=== PATIENT | female | born 1940 | race Caucasian/White ===

== ENCOUNTER 2020-06-25 10:47 | Inpatient (IN) ==
--- NOTE | 2020-06-25 11:08 | Emergency Department Note ---
General (ED) Blank Date of Service June 25, 2020 ISteffen DO PGY-3, participated in the care of this patient. Resident Activity Tracking Resident Involvement: Resident Care Provided Care Provided: Adult ED
[2020-06-25] MEDS ORDERED: MoRPHine SULFATE 2 MG/ML CARP IV STA (11:14)
[2020-06-25] MEDS ORDERED: ONDANSETRON INJ 2 MG/ML 2 ML VIAL IV STA (11:14)
--- NOTE | 2020-06-25 11:16 | Emergency Department Note ---
Impression & Plan Closed fracture of left hip ED Provider Note INFORMANT: [Patient] ED PROVIDER(S): Jose Avila MD CHIEF COMPLAINT: Left hip pain PLAN: Disposition: Admitted Condition: [Good] MEDICAL DECISION MAKING: Patient had an accidental fall. She suffered a left hip fracture seen on x-ray imaging. She had a slight leukocytosis on CBC but chemistry panel was unremarkable. ECG did not reveal any acute changes. Head CT negative. She was treated with IV morphine and felt much better with this. The patient will need to be admitted to the hospital. I did discuss this with her and family. They were in agreement. Consultation was made with internal medicine, Dr. Jacobson. Orthopedics was paged. Admitted for further management. Triage Nursing notes reviewed and agree them. [Additional history obtained from] family Vital Signs: reviewed and remarkable for [no significant abnormalities] Differential diagnosis: Fracture, subluxation, dislocation, contusion, closed head injury ligamentous injury, neurovascular, compartment syndrome, rhabdomyolysis, as well as other pathologies. Diagnostics interpreted by me: ECG: Rate 68 Rhythm:Normal sinus [place]:Normal QRS:Normal ST segements:No elevation or depression. Nonspecific ST Other:No PACs or PVCs Cardiac Monitoring: Cardiac monitoring ordered by me: The patient was placed on continuous cardiac monitoring and observed. It revealed a normal sinus rhythm at 65 beats per minute without ectopy or evidence of dysrhythmia. Imaging studies: Chest x-ray. Findings: A chest x-ray was performed and revealed no pneumothorax, effusion, infiltrate, pulmonary edema, free air under the diaphragm, or wide mediastinum. Impression: No acute disease. Left hip x-ray is consistent with left hip fracture. Head CT: A noncontrast CT scan of the head was performed and was negative for tumor, fracture, intracranial hemorrhage, or other acute pathology. Consultation(s): Hospital service Orthopedics HPI: The patient is a 80 year old female who presents to the Emergency Room with complaints of left hip pain. This started this morning from a fall and is persistent. The patient also notes the following associated symptoms, mild PHELAN. The patient has found no relieving factors. Current pain is rated as 7/10. Accidental fall, witnessed. Pt denies LOC, fevers, chills, diaphoresis, visual changes, neck pain, chest pain, breathing difficulties, nausea, vomiting, abdominal pain, back pain, melena, hematochezia, urinary symptoms, numbness, weakness, lymphadenopathy, rash, or other complaints. ROS: See above HPI for pertinent positives & negatives. A total of [10] systems reviewed and were otherwise negative. PAST MEDICAL HISTORY:[See Below] anticoagulated, A. fib PAST SURGICAL HISTORY:[See Below] FAMILY HISTORY:[See Below] SOCIAL HISTORY:[See Below] family HOME MEDICATIONS:[See Below] ALLERGIES:[See Below] VITALS:[See Below] PHYSICAL EXAMINATION: GENERAL: Awake, alert, uncomfortable-appearing, in no distress HENT: Normocephalic, atraumatic. Oropharynx unremarkable. EYES: Normal conjunctiva. Sclera non-icteric. NECK: Inspection normal. Non-tender. Supple. No nuchal rigidity. FROM. No masses. RESPIRATORY: Clear to auscultation. No wheezes. No rales. Normal respiratory effort. CARDIAC: Normal rate. Normal rhythm. No murmurs. No rubs. Extremities warm and well perfused. Pulses equal. No JVD. GI: Soft, non-distended. No tenderness to palpation. No rebound or guarding. No masses. RECTAL: Deferred. MUSCULOSKELETAL: Left leg is shortened and externally rotated. Range of motion of the left hip joint is extremely limited secondary to pain.. Chest examination reveals no tenderness. The back is symmetrical on inspection without obvious abnormality. There is no CVA tenderness to palpation. No joint edema. LOWER EXTREMITIES: Calves are equal size bilaterally and non-tender. No edema. No discoloration. NEURO: Normal sensorium. No sensory or motor deficits noted. SKIN: No rash or jaundice noted. 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 Surgical History H/O hernia repair inguinal History of hysterectomy S/P IVC filter Status post total knee replacement, right Family History Mother , from complications of hip Fx Hip fracture Father COPD (chronic obstructive pulmonary disease) Social History Smoking Status: Never smoker Hx Alcohol Use: No Hx Substance Use: No Preferred Language: Swazi Beliefs That Will Affect Care: None marital status: Single Current Living Situation: Family Current Living Situation Comment: lives with sister & nephew current occupational status: retired How many Children do You have: 0 Other Information That Helps Us Care for You: No 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 Feels Safe at Home: Yes Allergies Allergies Allergy/AdvReac Type Severity Reaction Status Date / Time No Known Allergies Allergy Unknown Unverified 06/25/20 12:51 Home Meds Home Medications Medication Instructions Recorded Confirmed apixaban [Eliquis] 5 mg PO BID 06/25/20 06/25/20 carvedilol 25 mg PO BID 06/25/20 06/25/20 cyclosporine [Restasis] 1 drp OPB BID 06/25/20 06/25/20 loratadine [Claritin] 10 mg PO DAILY PRN 06/25/20 06/25/20 omeprazole 20 mg PO DAILY 06/25/20 06/25/20 sertraline 25 mg PO DAILY 06/25/20 06/25/20 tramadol 50 mg PO BID PRN 06/25/20 06/25/20 Results & Data (ED) Vital Signs Vital Signs - 24 hr 06/25/20 11:02 06/25/20 12:40 Temperature 36.6 C Temperature Source Oral Pulse Rate 72 Pulse Rate [Right Finger] 71 Respiratory Rate 18 14 Respiratory Effort / Characteristics Non-Labored Spontaneous Non-Labored Spontaneous Respiratory Depth Normal Normal Respiratory Pattern Regular Regular Blood Pressure 191/89 H Blood Pressure [Right Arm] 133/75 Blood Pressure Mean 123 Blood Pressure Mean [Right Arm] 94 Blood Pressure Position Lying Blood Pressure Position [Right Arm] Lying Pulse Oximetry 88 L 99 Oxygen Delivery Method Room Air Nasal Cannula Oxygen Flow Rate 2 Sepsis Recent Fever Within 48 Hours No Sepsis New/Unexplained Change in Mental Status N/A Sepsis Action Taken by Nursing No Action Required Laboratory Data Result diagrams: 06/25/20 11:00 06/26/20 07:32 Lab Results 06/25/20 06/25/20 06/25/20 Range/Units 11:00 11:00 11:00 WBC 11.74 H (4.8-10.8) K/uL RBC 3.74 L (4.2-5.4) M/uL Hgb 12.2 (12.0-16.0) g/dL Hct 37.7 (37-47) % MCV 100.8 H (80-100) fL MCH 32.6 (25-34) pg MCHC 32.4 (32-36) g/dL RDW Std Deviation 48.5 H (36.4-46.3) fL RDW Coeff of Hernan 13.2 (11.5-14.5) % Plt Count 258 (130-400) K/uL MPV 11.2 H (7.4-10.4) fL Immature Gran % (Auto) 0.3 % Neut % (Auto) 80.4 % Lymph % (Auto) 11.8 % Wolfe % (Auto) 6.7 % Eos % (Auto) 0.7 % Baso % (Auto) 0.1 % Neut # (Auto) 9.45 H (1.4-6.5) K/uL Lymph # (Auto) 1.38 (1.2-3.4) K/uL Wolfe # (Auto) 0.79 H (0.11-0.59) K/uL Eos # (Auto) 0.08 (0-0.5) K/uL Baso # (Auto) 0.01 (0-0.2) K/uL Immature Gran # (Auto) 0.03 H (0.00-0.02) K/uL PT 11.5 (9.0-12.0) Seconds INR 1.1 (0.9-1.1) APTT 25.7 (21.0-31.0) Seconds PTT Ratio 0.9 Sodium 141 (136-145) mmol/L Potassium 3.8 (3.5-5.1) mmol/L Chloride 109 H (98-107) mmol/L Carbon Dioxide 26 (21-32) mmol/L Anion Gap 6.0 (3-11) BUN 15 (7-18) mg/dl Creatinine 0.63 (0.6-1.2) mg/dl Est Cr Clr Drug Dosing 66.0 ml/min Est GFR ( Amer) 97.5 Est GFR (Non-Af Amer) 84.1 BUN/Creatinine Ratio 23.8 H (10-20) Glucose 109 H (70-99) mg/dl Calcium 9.3 (8.5-10.1) mg/dl Troponin I (0-0.045) ng/ml Urine Color Urine Appearance (Clear) Urine pH (4.5-7.5) Ur Specific [place] (1.000-1.030) Urine Protein (Negative) Urine Glucose (UA) (Negative) Urine Ketones (Negative) Urine Blood (Negative) Urine Nitrite (Negative) Urine Bilirubin (Negative) Urine Urobilinogen (Negative) Ur Leukocyte Esterase (Negative) Urine WBC (Auto) (0-5) /hpf Urine RBC (Auto) (0-4) /hpf U Hyaline Cast (Auto) (0-5) /lpf U Epithel Cells (Auto) (0-5) /lpf Urine Bacteria (Auto) (Negative) Ur Renal Epithelial Cell (0-5) /lpf Blood Type Antibody Screen 06/25/20 06/25/20 06/25/20 Range/Units 11:00 11:05 11:25 WBC (4.8-10.8) K/uL RBC (4.2-5.4) M/uL Hgb (12.0-16.0) g/dL Hct (37-47) % MCV (80-100) fL MCH (25-34) pg MCHC (32-36) g/dL RDW Std Deviation (36.4-46.3) fL RDW Coeff of Hernan (11.5-14.5) % Plt Count (130-400) K/uL MPV (7.4-10.4) fL Immature Gran % (Auto) % Neut % (Auto) % Lymph % (Auto) % Wolfe % (Auto) % Eos % (Auto) % Baso % (Auto) % Neut # (Auto) (1.4-6.5) K/uL Lymph # (Auto) (1.2-3.4) K/uL Wolfe # (Auto) (0.11-0.59) K/uL Eos # (Auto) (0-0.5) K/uL Baso # (Auto) (0-0.2) K/uL Immature Gran # (Auto) (0.00-0.02) K/uL PT (9.0-12.0) Seconds INR (0.9-1.1) APTT (21.0-31.0) Seconds PTT Ratio Sodium (136-145) mmol/L Potassium (3.5-5.1) mmol/L Chloride (98-107) mmol/L Carbon Dioxide (21-32) mmol/L Anion Gap (3-11) BUN (7-18) mg/dl Creatinine (0.6-1.2) mg/dl Est Cr Clr Drug Dosing ml/min Est GFR ( Amer) Est GFR (Non-Af Amer) BUN/Creatinine Ratio (10-20) Glucose (70-99) mg/dl Calcium (8.5-10.1) mg/dl Troponin I < 0.015 (0-0.045) ng/ml Urine Color Yellow Urine Appearance Clear (Clear) Urine pH 6.5 (4.5-7.5) Ur Specific [place] 1.016 (1.000-1.030) Urine Protein Negative (Negative) Urine Glucose (UA) Negative (Negative) Urine Ketones Negative (Negative) Urine Blood Negative (Negative) Urine Nitrite Negative (Negative) Urine Bilirubin Negative (Negative) Urine Urobilinogen Negative (Negative) Ur Leukocyte Esterase 1+ H (Negative) Urine WBC (Auto) 1-5 (0-5) /hpf Urine RBC (Auto) 0-4 (0-4) /hpf U Hyaline Cast (Auto) 1-5 (0-5) /lpf U Epithel Cells (Auto) >30 H (0-5) /lpf Urine Bacteria (Auto) Negative (Negative) Ur Renal Epithelial Cell 0-5 (0-5) /lpf Blood Type A Positive Antibody Screen NEGATIVE Administered Medications Acetaminophen (Acetaminophen 325 Mg Tab) 650 mg PO Q6H PRN PRN Reason: MILD Pain (Scale 1,2,3) Stop: 07/25/20 15:57 Last Admin: 06/25/20 22:07 Dose: 650 mg Documented by: [id number] Carvedilol (Carvedilol 25 Mg Tab) 25 mg PO BID HOWARD Stop: 07/25/20 20:59 Last Admin: 06/25/20 20:32 Dose: 25 mg Documented by: [id number] Hydromorphone HCl (Hydromorphone Inj 0.5 Mg/0.5 Ml Syr) 0.25 mg IV Q3H PRN PRN Reason: Moderate/Severe Pain Stop: 07/09/20 15:57 Last Admin: 06/25/20 23:58 Dose: 0.25 mg Documented by: [id number] Admin: 06/25/20 21:05 Dose: 0.25 mg Documented by: [id number] Admin: 06/25/20 16:40 Dose: 0.25 mg Documented by: [id number] Lactated Ringer's (Lr) 1,000 mls @ 80 mls/hr IV .[id number] HOWARD Stop: 07/26/20 05:59 Last Admin: 06/26/20 06:07 Dose: 80 mls/hr Documented by: [id number] Miscellaneous (*Cyclosporine [Restasis]*Order Awaiting Action) 1 ea N/A QS [facility] Stop: 07/26/20 00:00 Last Admin: 06/26/20 00:19 Dose: Not Given Documented by: [id number] Senna/Docusate Sodium (Docusate Sodium/Senna 50/8.6mg Tab) 2 tab PO HS [facility] Stop: 07/25/20 20:59 Last Admin: 06/25/20 20:32 Dose: 2 tab Documented by: [id number] Discontinued Medications Hydromorphone HCl (Hydromorphone Inj 0.5 Mg/0.5 Ml Syr) 0.25 mg IV NOW STA Stop: 06/26/20 02:26 Last Admin: 06/26/20 02:53 Dose: 0.25 mg Documented by: [id number] Lactated Ringer's (Lr) 1,000 mls @ 75 mls/hr IV .[id number] HOWARD Stop: 06/26/20 05:34 Last Infusion: 06/26/20 06:20 Dose: 0 mls/hr Documented by: [id number] Admin: 06/25/20 16:48 Dose: 75 mls/hr Documented by: [id number] Morphine Sulfate (Morphine Sulfate 2 Mg/Ml Carp) 2 mg IV NOW STA Stop: 06/25/20 11:15 Last Admin: 06/25/20 11:23 Dose: 2 mg Documented by: [id number] Morphine Sulfate (Morphine Sulfate 4 Mg/Ml 1 Ml Carp\Vial) 4 mg IV Q15M PRN PRN Reason: Pain Stop: 07/09/20 12:34 Last Admin: 06/25/20 14:54 Dose: 4 mg Documented by: [id number] Admin: 06/25/20 12:41 Dose: 4 mg Documented by: [id number] Ondansetron HCl (Ondansetron Inj 2 Mg/Ml 2 Ml Vial) 4 mg IV NOW STA Stop: 06/25/20 11:15 Last Admin: 06/25/20 11:23 Dose: 4 mg Documented by: [id number] Discharge Plan Visit Data Chief Complaint: Fall ED Provider: Jose Avila ED Midlevel Provider: Steffen Lynch Discharge Problem: Closed fracture of left hip Patient Disposition: Admitted As Inpatient Discharge Instructions Interventions: ED Discharge Assessment Last Done: 06/25/20 16:32
[2020-06-25 11:27] LABS: Basophils # (auto) 0.01 K/uL (0-0.2); Basophils % (auto) 0.1 %; Eosinophils # (auto) 0.08 K/uL (0-0.5); Eosinophils % (auto) 0.7 %; Hematocrit (blood only) 37.7 % (37-47); Hemoglobin 12.2 g/dL (12.0-16.0); Immature Granulocytes # (auto) 0.03 K/uL (0.00-0.02); Immature Granulocytes % (auto) 0.3 %; Lymphocytes # (auto) 1.38 K/uL (1.2-3.4); Lymphocytes % (auto) 11.8 %; Mean Corpuscular Hemoglobin 32.6 pg (25-34); Mean Corpuscular Hgb Conc 32.4 g/dL (32-36); Mean Corpuscular Volume 100.8 fL (80-100); Mean Platelet Volume 11.2 fL (7.4-10.4); Monocytes # (auto) 0.79 K/uL (0.11-0.59); Monocytes % (auto) 6.7 %; Neutrophils # (auto) 9.45 K/uL (1.4-6.5); Neutrophils % (auto) 80.4 %; Platelet Count 258 K/uL (130-400); RDW Coefficient of Variation 13.2 % (11.5-14.5); RDW Standard Deviation 48.5 fL (36.4-46.3); Red Blood Count 3.74 M/uL (4.2-5.4); White Blood Count 11.74 K/uL (4.8-10.8)
[2020-06-25 11:36] LABS: INR 1.1 (0.9-1.1); Partial Thromboplastin Ratio 0.9; Partial Thromboplastin Time 25.7 Seconds (21.0-31.0); Prothrombin Time 11.5 Seconds (9.0-12.0)
[2020-06-25 11:42] LABS: BUN Creatinine Ratio 23.8 (10-20); Calcium 9.3 mg/dl (8.5-10.1); Est GFR (African American) 97.5; Est GFR (Non-African American) 84.1; Potassium 3.8 mmol/L (3.5-5.1)
[2020-06-25 12:22] LABS: Appearance Urine Clear (Clear); Bacteria Urine Automated Negative (Negative); Bilirubin Urine Negative (Negative); Blood Urine Negative (Negative); Color Urine Yellow; Epithelial Cell Urine Auto >30 /lpf (0-5); Glucose Urine UA Negative (Negative); Ketones Urine Negative (Negative); Leukocyte Esterase Urine 1+ (Negative); Nitrite Urine Negative (Negative); Protein Urine Negative (Negative); RBC Urine Automated 0-4 /hpf (0-4); Specific Gravity Urine 1.016 (1.000-1.030); Urobilinogen Urine Negative (Negative); pH Urine 6.5 (4.5-7.5)
--- NOTE | 2020-06-25 12:30 | XRay Report ---
XR hip LT min 2V HISTORY: 80 years-old Female Fall, pain, shortened externally rotated acute left hip pain status pos t fall COMPARISON: CT abdomen and pelvis 11/04/2008 TECHNIQUE: 2 views of the left hip FINDINGS: There is an acute intertrochanteric fracture of the left hip. The lesser trochanteric fracture compon ent is displaced several millimeters medially. Mild apex superior lateral angulation with several mil limeters of fracture separation. Moderate left hip osteoarthritis. IMPRESSION: Acute mildly angulated and displaced intratrochanteric fracture of the left femur. ACT 112: Negative or not required by law. The above report was generated using voice recognition software. It may contain grammatical, syntax o r spelling errors. Electronically signed by: Gareth Dobbs M.D. 06/25/2020 12:29 PM
--- NOTE | 2020-06-25 12:31 | XRay Report ---
XR chest 1V portable CLINICAL HISTORY: syncope mental status change COMPARISON STUDY: No previous studies for comparison. FINDINGS: The bones soft tissues and hemidiaphragms are normal. The cardiomediastinal silhouette is n ormal. The lungs are clear. The pulmonary vasculature is normal. IMPRESSION: Negative chest. ACT 112: Negative or not required by law. The above report was generated using voice recognition software. It may contain grammatical, syntax or spelling errors. Electronically signed by: Guanakito Garcia M.D. 06/25/2020 12:29 PM
[2020-06-25] MEDS: MoRPHine SULFATE 4 MG/ML 1 ML CARP\\VIAL IV PRN ×2 (12:41→14:54)
--- NOTE | 2020-06-25 13:14 | History & Physical Report ---
Date of Service June 25, 2020 Assessment & Plan (1) Hip fracture, left: 2nd to accidental fall in her bedroom at home. Patient had no prodromal chest pain, dyspnea, palpitations, or dizziness/lightheadedness prior to the fall. She states she had loss of consciousness for 2-3 seconds at most. Denies any recent falls, syncope, or near-syncope otherwise. Hold eliquis in preparation for surgical repair. Consult [facility] [place]. IV fluids. Place on telemetry, r/o any dysrhythmia which could have precipitated the fall. Consider echo given her nonspecific ST changes on EKG. Check vitamin D level in am. (2) Fall: History suggests a purely accidental event with no prodromal symptoms. I am unclear if the patient had true loss of consciousness or not. She states it was for 2-3 seconds at most, if any actually occurred. No head trauma by her report. Check B12 level. Check vitamin D level. Place on telemetry. Check echo. Place on bedrest. Strongly consider CT head. (3) Syncope: Possible, in and around the time of the fall. Very brief as noted above. Consider CT head. Consider echo. Check B12 level. (4) History of DVT (deep vein thrombosis): Provoked, 2007, in setting of right TKR. Apparently she had an associated stroke during the VTE event as well. Records for that admission are not available as TKR was performed at [facility]. She was on coumadin for many years, then switched to eliquis in the last few years. I am uncertain why she has remained on anticoagulation for 12 years. She denies a.fib. Son doesn't recall any h/o a.fib either. Son reports they have kept her on anticoagulation this long "because she had the stroke." Will hold eliquis in preparation for surgery today. Following her surgery would resume her anticoagulation as previous. (5) History of stroke: 2007 - see above. (6) Essential (primary) hypertension: Continue coreg BID. (7) GERD (gastroesophageal reflux disease): Continue PPI. (8) DVT prophylaxis: Hold eliquis for now. Resume post-op. Son extensively updated. From a cardiovascular standpoint patient is a low-moderate risk for her upcoming left hip ORIF. Greatest risk is that of VTE given her prior DVT event following total knee replacement. Resume eliquis post-op when cleared with orthopedics. She has no limiting cardiopulmonary symptoms at home. She can climb a flight of stairs without difficulty. History of Present Illness Chief Complaint: left hip pain Primary Care Provider: Diamond Hewitt DO 80yo female with history of stroke in 2007 with resulting numbness in the right leg presents after having had a fall at home in her bedroom this am. Was attempting to walk to the bathroom - may have tripped on items on the floor - and fell to the ground. She typically uses a cane but wasn't using it this am when the fall occurred. She did not have any prodromal dizziness or lightheadedness but thinks she passed out for a second or two. Son with whom she lives found her on floor. She had severe pain in the left groin and left thigh. 911 was called and she was brought to [facility]. x-rays show acute left hip fracture. She has had falls in the past but none recently. She has had syncope in the past but also not recently. Denies dizziness/lightheadedness on regular basis. Last dose of eliquis - evening of 06/24/2020. Allergies Allergy/AdvReac Type Severity Reaction Status Date / Time No Known Allergies Allergy Unknown Unverified 06/25/20 12:51 Home Medications Home Medications Medication Instructions Recorded Confirmed Type apixaban [Eliquis] 5 mg PO BID 06/25/20 06/25/20 History carvedilol 25 mg PO BID 06/25/20 06/25/20 History cyclosporine [Restasis] 1 drp OPB BID 06/25/20 06/25/20 History loratadine [Claritin] 10 mg PO DAILY PRN 06/25/20 06/25/20 History omeprazole 20 mg PO DAILY 06/25/20 06/25/20 History sertraline 25 mg PO DAILY 06/25/20 06/25/20 History tramadol 50 mg PO BID PRN 06/25/20 06/25/20 History Past Med/Surg History Medical History Essential (primary) hypertension GERD (gastroesophageal reflux disease) 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; 2007 History of stroke 2007 - residual numbness in right arm/right leg Surgical History H/O hernia repair inguinal History of hysterectomy S/P IVC filter Status post total knee replacement, right Family History (Updated 06/25/20 @ 21:49 by Randolph Jacobson) Mother , from complications of hip Fx Hip fracture Father COPD (chronic obstructive pulmonary disease) Social History Smoking Status: Never smoker Hx Alcohol Use: No Hx Substance Use: No Preferred Language: Wallisian Beliefs That Will Affect Care: None marital status: Single Current Living Situation: Family Current Living Situation Comment: lives with sister & nephew current occupational status: retired How many Children do You have: 0 Other Information That Helps Us Care for You: No other: worked at [employer] - [employer] Feels Safe at Home: Yes Review of Systems Constitutional: no fever, no chills, no anorexia and no weight loss Eyes: no worsening vision Ear, Nose, Mouth, Throat: + dysphagia (on occasion) no loss of taste or smell Respiratory: + cough (occasional ); no dyspnea on exertion Cardiovascular: no chest pain and no edema Gastrointestinal: + diarrhea/loose stools (chronic ); no abdominal pain and no vomiting Genitourinary: no dysuria Musculoskeletal: as per Subjective / HPI and + joint pain Integumentary: no rash Neurologic: + loss of sensation (chronic - RLE, RUE) Psychiatric: no depression Endocrine: no diabetes Hematologic / Lymphatic: no easy bruising Physical Exam Constitutional: well developed, well nourished and + acute distress (any movement in bed causes left hip pain); no altered mental status Eyes: PERRL (1mm b/l) ENMT: external ear and nose normal, oropharynx normal Neck: trachea midline, no thyromegaly Respiratory: normal respiratory effort, lungs clear to auscultation Cardiovascular: Rate/Rhythm: regular rate and regular rhythm Heart Sounds: normal S1, normal S2 and + murmur (1/6 ZAINAB LSB ) Vessels: posterior tibial pulses present and dorsalis pedis pulses present; no JVD Extremities: no edema Gastrointestinal (Abdomen): normal bowel sounds, soft, nontender, no hepatosplenomegaly Musculoskeletal: left leg - shortened, flexed, and externally rotated Skin: no rashes, warm and dry Neurologic: deep tendon reflexes 2+ bilaterally and moves all extremities (hip flexion L not assessed ) Psychiatric: A+Ox3, euthymic affect Lymphatic: no cervical lymphadenopathy Results & Data Results & Data ([facility]) Vital Signs (Past 12 Hours) Vital Signs Temp Pulse Pulse Resp BP BP Pulse Ox 06/25/20 12:40 71 14 133/75 99 06/25/20 11:02 36.6 C 72 18 191/89 H 88 L Laboratory Results Laboratory Results - last 24 hr 06/25/20 06/25/20 06/25/20 11:00 11:00 11:00 WBC 11.74 H RBC 3.74 L Hgb 12.2 Hct 37.7 MCV 100.8 H MCH 32.6 MCHC 32.4 RDW Std Deviation 48.5 H RDW Coeff of Hernan 13.2 Plt Count 258 MPV 11.2 H Immature Gran % (Auto) 0.3 Neut % (Auto) 80.4 Lymph % (Auto) 11.8 [place] % (Auto) 6.7 Eos % (Auto) 0.7 Baso % (Auto) 0.1 Neut # (Auto) 9.45 H Lymph # (Auto) 1.38 [place] # (Auto) 0.79 H Eos # (Auto) 0.08 Baso # (Auto) 0.01 Immature Gran # (Auto) 0.03 H PT 11.5 INR 1.1 APTT 25.7 PTT Ratio 0.9 Sodium 141 Potassium 3.8 Chloride 109 H Carbon Dioxide 26 Anion Gap 6.0 BUN 15 Creatinine 0.63 Est Cr Clr Drug Dosing 66.0 Est GFR ( Amer) 97.5 Est GFR (Non-Af Amer) 84.1 BUN/Creatinine Ratio 23.8 H Glucose 109 H Calcium 9.3 Troponin I Urine Color Urine Appearance Urine pH Ur Specific [place] Urine Protein Urine Glucose (UA) Urine Ketones Urine Blood Urine Nitrite Urine Bilirubin Urine Urobilinogen Ur Leukocyte Esterase Urine WBC (Auto) Urine RBC (Auto) U Hyaline Cast (Auto) U Epithel Cells (Auto) Urine Bacteria (Auto) Ur Renal Epithelial Cell Blood Type Antibody Screen 06/25/20 06/25/20 06/25/20 11:00 11:05 11:25 WBC RBC Hgb Hct MCV MCH MCHC RDW Std Deviation RDW Coeff of Hernan Plt Count MPV Immature Gran % (Auto) Neut % (Auto) Lymph % (Auto) [place] % (Auto) Eos % (Auto) Baso % (Auto) Neut # (Auto) Lymph # (Auto) [place] # (Auto) Eos # (Auto) Baso # (Auto) Immature Gran # (Auto) PT INR APTT PTT Ratio Sodium Potassium Chloride Carbon Dioxide Anion Gap BUN Creatinine Est Cr Clr Drug Dosing Est GFR ( Amer) Est GFR (Non-Af Amer) BUN/Creatinine Ratio Glucose Calcium Troponin I < 0.015 Urine Color Yellow Urine Appearance Clear Urine pH 6.5 Ur Specific [place] 1.016 Urine Protein Negative Urine Glucose (UA) Negative Urine Ketones Negative Urine Blood Negative Urine Nitrite Negative Urine Bilirubin Negative Urine Urobilinogen Negative Ur Leukocyte Esterase 1+ H Urine WBC (Auto) 1-5 Urine RBC (Auto) 0-4 U Hyaline Cast (Auto) 1-5 U Epithel Cells (Auto) >30 H Urine Bacteria (Auto) Negative Ur Renal Epithelial Cell 0-5 Blood Type A Positive Antibody Screen NEGATIVE Diagnostic Findings 1. cxr - no infiltrates. 2. left hip x-rays - IMPRESSION: Acute mildly angulated and displaced intratrochanteric fracture of the left femur. 3. EKG - my reading - NSR, NS ST changes III, AVF; NS ST changes V2/V2 only no prior EKG for comparison purposes Code Status & VTE Plan Code Status DNR/DNI VTE Prophylaxis Plan VTE Prophylaxis will be ordered: Yes PG Care Time/CCT Total # of Minutes Spent Total Time Spent with Patient: Total time spent is greater than 50% in coordination of care (as documented) at patient's floor/unit and/or counseling patient: Coding Level of Care Code 09320 Initial Inpt Care Lvl 3 Diagnoses Hip fracture, left S72.002A Encounter type: initial encounter Fracture type: closed Fall W19.XXXA Encounter type: initial encounter Syncope R55 Syncope type: unspecified History of DVT (deep vein thrombosis) Z86.718 History of stroke Z86.73 Essential (primary) hypertension I10 GERD (gastroesophageal reflux disease) K21.9 Esophagitis presence: esophagitis presence not specified DVT prophylaxis Z29.9 (1) GERD (gastroesophageal reflux disease) Esophagitis presence: esophagitis presence not specified Qualified Code(s): K21.9 - Gastro-esophageal reflux disease without esophagitis (2) Hip fracture, left Encounter type: initial encounter Fracture type: closed Qualified Code(s): S72.002A - Fracture of unspecified part of neck of left femur, initial encounter for closed fracture (3) Fall Encounter type: initial encounter Qualified Code(s): W19.XXXA - Unspecified fall, initial encounter (4) Syncope Syncope type: unspecified Qualified Code(s): R55 - Syncope and collapse
[2020-06-25 13:48] LABS: Renal Epithelial Cells Urine 0-5 /lpf (0-5)
--- NOTE | 2020-06-25 15:02 | Orthopedic Consultation ---
Date of Consultation June 25, 2020 Assessment & Plan (1) Hip fracture, left: Comminuted, complex peritrochanteric fx with subtroch and basicervical involvement. Plan for cephalomedullary nail as soon as tomorrow if medically optimized. Plan for at least 6 weeks of VTE chemoprophylaxis postop - defer to medicine team for agent/dose given history of VTE and chronic apixaban. Keep NPO overnight. Discussed need for surgical stabilization with patient and her primary contact = Wade, her nephew. Discussed risks and benefits of open or closed reduction and internal fixation of left peritrochanteric fracture. The risks that were discussed included but were not limited to bleeding requiring transfusion, neurovascular injury, wound healing complications, infection, possible need for revision surgery, nonunion, malunion, symptomatic hardware, pain syndromes, blood clots, and complications related to anesthesia. They both asked appropriate questions, demonstrated a good understanding, and elected to proceed with surgery. Present on Admission?: Yes History of Present Illness Reason for Consultation: Left hip fracture History of Present Illness 80 yo F with hx of stroke, VTE, IVC Filter, R TKA brought by EMS after fall at home. She reports that she must have tripped on carpet. Had immediate pain and inability to bear weight. Also states that she hit her head but denies LOC. Reports pain in groin and hip, radiating to knee. No prior hx of hip pain. Denies skin trauma and neurologic symptoms in the LLE. Uses cane for independent ambulation at home. Lives with sister and nephew. Allergies Allergy/AdvReac Type Severity Reaction Status Date / Time No Known Allergies Allergy Unknown Unverified 06/25/20 12:51 Home Medications Home Medications Medication Instructions Recorded Confirmed Type apixaban [Eliquis] 5 mg PO BID 06/25/20 06/25/20 History carvedilol 25 mg PO BID 06/25/20 06/25/20 History cyclosporine [Restasis] 1 drp OPB BID 06/25/20 06/25/20 History loratadine [Claritin] 10 mg PO DAILY PRN 06/25/20 06/25/20 History omeprazole 20 mg PO DAILY 06/25/20 06/25/20 History sertraline 25 mg PO DAILY 06/25/20 06/25/20 History tramadol 50 mg PO BID PRN 06/25/20 06/25/20 History Patient History Medical History Essential (primary) hypertension GERD (gastroesophageal reflux disease) 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; 2007 History of stroke 2008 - residual numbness in right arm/right leg Surgical History H/O hernia repair inguinal History of hysterectomy S/P IVC filter Status post total knee replacement, right Family History Mother , from complications of hip Fx Hip fracture Father COPD (chronic obstructive pulmonary disease) Social History Smoking Status: Never smoker Hx Alcohol Use: No Hx Substance Use: No Preferred Language: Belgian Beliefs That Will Affect Care: None marital status: Single Current Living Situation: Family Current Living Situation Comment: lives with sister & nephew current occupational status: retired How many Children do You have: 0 Other Information That Helps Us Care for You: No 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 LLE held in shortened and externally rotated position. +EHL/PF/DF. 2+ dp/pt pulses. Sensation grossly intact to LT. Nontender along femur, knee, tibia, ankle. RLE: Normal posture. +PF/DF/EHL/KF/KE. DNVI. BUE: FAROM without pain Scalp without lacerations Constitutional: well developed and well nourished; no acute distress and not intoxicated appearing ENMT: external ear and nose normal, oropharynx normal Respiratory: normal respiratory effort; no respiratory distress Cardiovascular: Extremities: normal capillary refill; no edema Skin: no rashes, warm and dry Psychiatric: A+Ox3, euthymic affect Results & Data ([facility]) Vital Signs (Past 12 Hours) Vital Signs Temp Pulse Pulse Resp BP BP Pulse Ox 06/25/20 14:04 73 18 149/77 H 98 06/25/20 12:40 71 14 133/75 99 06/25/20 11:02 36.6 C 72 18 191/89 H 88 L Laboratory Tests 06/25/20 06/25/20 06/25/20 11:00 11:00 11:05 WBC 11.74 H Hgb 12.2 Hct 37.7 Plt Count 258 Neut # (Auto) 9.45 H Troponin I < 0.015 Ur Leukocyte Esterase 1+ H Urine WBC (Auto) 1-5 Urine Bacteria (Auto) Negative Blood Type 06/25/20 11:25 WBC Hgb Hct Plt Count Neut # (Auto) Troponin I Ur Leukocyte Esterase Urine WBC (Auto) Urine Bacteria (Auto) Blood Type A Positive Diagnostic Findings Radiographs of the left hip are of poor quality but show comminuted peritrochanteric fracture with basicervical and subtrochanteric involvement. AP Pelvis views better define the fracture pattern. Best treated with CMN. Osteoporotic appearance. Extensive trochanteric comminution. PG Care Time/CCT Total # of Minutes Spent Total Time Spent with Patient: Total time spent is greater than 50% in coordination of care (as documented) at patient's floor/unit and/or counseling patient: Coding Level of Care Code 09227 Initial Inpt Care Lvl 3 Diagnoses Hip fracture, left S72.002A Encounter type: initial encounter Fracture type: closed (1) Hip fracture, left Encounter type: initial encounter Fracture type: closed Qualified Code(s): S72.002A - Fracture of unspecified part of neck of left femur, initial encounter for closed fracture
[2020-06-25] MEDS ORDERED: ONDANSETRON INJ 2 MG/ML 2 ML VIAL IV PRN (15:58)
[2020-06-25] MEDS ORDERED: MAGNESIUM HYDROXIDE SUSP 30 ML UDC PO PRN (15:58)
[2020-06-25] MEDS ORDERED: LORATADINE 10 MG TAB PO PRN (15:58)
[2020-06-25] MEDS ORDERED: bisacodyL 10 MG SUPP PR PRN (15:58)
[2020-06-25] MEDS ORDERED: NALOXONE HCL 0.4 MG/1 ML VIAL/CARP IV PRN (15:58)
[2020-06-25] MEDS ORDERED: ACETAMINOPHEN 325 MG TAB PO PRN (15:58)
[2020-06-25] MEDS ORDERED: LACTATED RINGER'S 1,000 ML IV SCH (16:15)
[2020-06-25] MEDS: HYDROmorphone INJ 0.5 MG/0.5 ML SYR IV PRN ×3 (16:40→23:58)
--- NOTE | 2020-06-25 16:43 | XRay Report ---
PELVIS ONE VIEW HISTORY: Left hip fracture COMPARISON: Left hip 06/25/2020. FINDINGS: Redemonstration of the comminuted and angulated left femoral intertrochanteric fracture. No dislocation. The visualized pelvic bones and right hip appear intact. No radiopaque foreign bodies. IMPRESSION: No change in the comminuted and angulated left femoral intertrochanteric hip fracture. ACT 112: Negative or not required by law. Electronically signed by: Erik Thorpe M.D. 06/25/2020 4:41 PM
[2020-06-25] MEDS: DOCUSATE SODIUM/SENNA 50/8.6MG TAB PO SCH (20:32)
[2020-06-25] MEDS: carvediloL 25 MG TAB PO SCH (20:32)
[2020-06-26] MEDS ORDERED: HYDROmorphone INJ 0.5 MG/0.5 ML SYR IV STA (02:25)
[2020-06-26] MEDS ORDERED: CEFAZOLIN 2000MG 2,000 MG/15 ML SYR IV SCH (06:00)
[2020-06-26] MEDS: LACTATED RINGER'S 1,000 ML IV SCH ×2 (06:07→20:55)
--- NOTE | 2020-06-26 06:30 | Electrocardiogram Report ---
Test Reason : Blood Pressure : / mmHG Vent. Rate : 068 BPM Atrial Rate : 068 BPM P-R Int : 172 ms QRS Dur : 072 ms QT Int : 420 ms P-R-T Axes : 040 -03 030 degrees QTc Int : 446 ms Poor data quality, interpretation may be adversely affected Normal sinus rhythm Nonspecific ST and T wave abnormality Abnormal ECG No previous ECGs available Confirmed by Niels Long ([id number]) on 06/26/2020 6:29:43 AM Referred By: REFERRED SELF Confirmed By:Niels Long
--- NOTE | 2020-06-26 07:14 | CT Scan Report ---
CT SCAN OF THE BRAIN WITHOUT IV CONTRAST CLINICAL HISTORY: Fall. Syncope. COMPARISON STUDY: No priors. TECHNIQUE: Unenhanced axial CT scan of the brain is performed from the vertex to the skull base. A do se lowering technique was utilized adhering to the principles of ALARA. CT DOSE: 614.27 mGy.cm FINDINGS: Brain parenchyma: Left MCA territory encephalomalacia is consistent with a remote infarct. There are age-related involutional changes noting mild subcortical and periventricular microangiopathic change . There is no hemorrhage, mass effect, or evidence of acute territorial ischemia by CT criteria. Cárdenas -white matter differentiation is preserved. No extra-axial fluid collection is seen. Ventricles, sulci, cisterns: Prominent secondary to involutional change. Intracranial vasculature: There is atherosclerotic calcification of the cavernous carotid and vertebr al arteries. Calvarium: The skeletal structures are osteopenic. No depressed calvarial fracture is identified. Sinuses and mastoids: The visualized paranasal sinuses are clear. The mastoid air cells are well pneu matized. Orbits: The bony orbits are grossly intact. There is evidence of bilateral ocular lens surgery. IMPRESSION: There is no hemorrhage, mass effect, or evidence of acute territorial ischemia by CT nestor guzman. ACT 112: Negative or not required by law. Electronically signed by: Ezekiel Markham M.D. 06/26/2020 7:12 AM
[2020-06-26 08:18] LABS: BUN Creatinine Ratio 25.2 (10-20); Calcium 8.4 mg/dl (8.5-10.1); Creatinine Clr Calc Pharmacy 89.5 ml/min; Est GFR (African American) 103.9; Est GFR (Non-African American) 89.6; Potassium 3.8 mmol/L (3.5-5.1)
[2020-06-26 08:33] LABS: Thyroid Stimulating Hormone 0.529 uIu/ml (0.300-4.500)
[2020-06-26] MEDS: carvediloL 25 MG TAB PO SCH ×2 (09:03→21:27)
[2020-06-26] MEDS: PANTOprazole 40 MG TAB PO SCH (09:04)
[2020-06-26] MEDS: SERTRALINE HCL 50 MG TABLET PO SCH (09:04)
[2020-06-26] MEDS ORDERED: PROPOFOL IV EMULSION 10 MG/ML 20 ML VIAL IV ONE (16:07)
[2020-06-26] MEDS ORDERED: DEXAMETHASONE SOD INJ 4 MG/ML VIAL ONE ×2 (16:07→18:19)
[2020-06-26] MEDS ORDERED: GLYCOPYRROLATE 0.2 MG/ML VIAL ONE ×2 (16:07→18:19)
[2020-06-26] MEDS ORDERED: NEOSTIGMINE METHYLSULFATE 5 MG/5 ML SYR ONE ×2 (16:07→18:19)
[2020-06-26] MEDS ORDERED: LIDOCAINE HCL 2% 2 ML VIAL/AMP(20MG/ML) INFIL ONE ×2 (16:07→18:19)
[2020-06-26] MEDS ORDERED: ROCURONIUM BROMIDE 10 MG/ML 5 ML VIAL IV ONE ×2 (16:07→18:19)
[2020-06-26] MEDS ORDERED: ONDANSETRON INJ 2 MG/ML 2 ML VIAL ONE ×2 (16:07→18:19)
[2020-06-26] MEDS ORDERED: MIDAZOLAM HCL 1 MG/ML 2ML VIAL ONE (16:08)
[2020-06-26] MEDS ORDERED: fentaNYL citrate 100 MCG/2 ML VIAL ONE (16:08)
--- NOTE | 2020-06-26 16:59 | XCELERA ---
[id number]
--- NOTE | 2020-06-26 17:00 | Anesthesiology Consultation ---
Date of Service June 26, 2020 Assessment & Plan (1) Encounter for pre-operative examination: Chart Review Chart Review: Acceptable Risk for Surgery and Patient NOT seen in Pre Admission Testing Consults Requested none History Surgery Operation Date: 06/26/20 07:30 Proposed Procedures p Left Hip Trochanteric Nail - Vladimir Sanabria Height/Weight Height: 5 ft 5 in Weight: 81.6 kg Allergies Allergy/AdvReac Type Severity Reaction Status Date / Time No Known Allergies Allergy Unknown Unverified 06/25/20 12:51 Medications Home Medications Medication Instructions Recorded Confirmed Last Taken apixaban [Eliquis] 5 mg PO BID 06/25/20 06/25/20 06/24/20 carvedilol 25 mg PO BID 06/25/20 06/25/20 06/24/20 cyclosporine [Restasis] 1 drp OPB BID 06/25/20 06/25/20 06/24/20 loratadine [Claritin] 10 mg PO DAILY PRN 06/25/20 06/25/20 06/24/20 omeprazole 20 mg PO DAILY 06/25/20 06/25/20 06/24/20 sertraline 25 mg PO DAILY 06/25/20 06/25/20 06/24/20 tramadol 50 mg PO BID PRN 06/25/20 06/25/20 06/24/20 Active Medications Generic Name Dose Route Start Last Admin Trade Name Freq PRN Reason Stop Dose Admin Acetaminophen 650 mg 06/25/20 15:58 06/25/20 22:07 Acetaminophen 325 Mg Tab PO 07/25/20 15:57 650 mg Q6H PRN Administration MILD Pain (Scale 1,2,3) Carvedilol 25 mg 06/25/20 21:00 06/26/20 09:03 Carvedilol 25 Mg Tab PO 07/25/20 20:59 25 mg BID HOWARD Administration Hydromorphone HCl 0.25 mg 06/25/20 15:58 06/25/20 23:58 Hydromorphone Inj 0.5 Mg/0.5 Ml Syr IV 07/09/20 15:57 0.25 mg Q3H PRN Administration Moderate/Severe Pain Lactated Ringer's 1,000 mls @ 80 mls/hr 06/26/20 06:00 06/26/20 16:21 Lr IV 07/26/20 05:59 Infused .[id number] HOWARD Infusion Miscellaneous 1 ea 06/26/20 00:00 06/26/20 16:27 *Cyclosporine [Restasis]*Order Awaiting Action N/A 07/26/20 00:00 Not Given QS HOWARD Pantoprazole Sodium 40 mg 06/26/20 09:00 06/26/20 09:04 Pantoprazole 40 Mg Tab PO 07/26/20 08:59 Not Given QAM HOWARD Senna/Docusate Sodium 2 tab 06/25/20 21:00 06/25/20 20:32 Docusate Sodium/Senna 50/8.6mg Tab PO 07/25/20 20:59 2 tab HS HOWARD Administration Sertraline HCl 25 mg 06/26/20 09:00 06/26/20 09:04 Sertraline Hcl 50 Mg Tablet PO 07/26/20 08:59 Not Given DAILY HOWARD NPO Date Last Intake of Fluids: 06/26/20 Time Last Intake of Fluids: 00:00 Date Last Intake of Solids: 06/25/20 Time Last Intake of Solids: 17:00 Past Medical History Medical History Essential (primary) hypertension GERD (gastroesophageal reflux disease) 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; 2007 History of stroke 2007 - residual numbness in right arm/right leg Past Family History Family History Mother , from complications of hip Fx Hip fracture Father COPD (chronic obstructive pulmonary disease) Past Surgical History Surgical History H/O hernia repair inguinal History of hysterectomy S/P IVC filter Status post total knee replacement, right Social History Smoking Status: Never smoker Hx Alcohol Use: No Hx Substance Use: No Physical Exam Vital Signs Last Vital Signs Temp 37.3 C 06/26/20 16:36 Pulse 85 06/26/20 16:36 Resp 18 06/26/20 16:36 BP 153/83 H 06/26/20 16:43 Pulse Ox 98 06/26/20 16:36 Testing Laboratory Results 06/25/20 11:00 06/26/20 07:32 PT 11.5 Seconds (9.0-12.0) 06/25/20 11:00 INR 1.1 (0.9-1.1) 06/25/20 11:00 APTT 25.7 Seconds (21.0-31.0) 06/25/20 11:00 Urine Color Yellow 06/25/20 11:05 Urine Appearance Clear (Clear) 06/25/20 11:05 Urine pH 6.5 (4.5-7.5) 06/25/20 11:05 Ur Specific [place] 1.016 (1.000-1.030) 06/25/20 11:05 Urine Protein Negative (Negative) 06/25/20 11:05 Urine Glucose (UA) Negative (Negative) 06/25/20 11:05 Urine Ketones Negative (Negative) 06/25/20 11:05 Urine Nitrite Negative (Negative) 06/25/20 11:05 Ur Leukocyte Esterase 1+ (Negative) H 06/25/20 11:05 Urine WBC (Auto) 1-5 /hpf (0-5) 06/25/20 11:05 Urine RBC (Auto) 0-4 /hpf (0-4) 06/25/20 11:05 U Hyaline Cast (Auto) 1-5 /lpf (0-5) 06/25/20 11:05 U Epithel Cells (Auto) >30 /lpf (0-5) H 06/25/20 11:05 Urine Bacteria (Auto) Negative (Negative) 06/25/20 11:05 Blood Type A Positive 06/25/20 11:25 Antibody Screen NEGATIVE 06/25/20 11:25 Electrocardiogram Date: 06/25/20 Findings: + NSR @ (68) and + NSST changes Chest X-Ray Date: 06/25/20 Findings: + NAD Echocardiogram Date: 06/26/20 EF: 55-60 LV Function: normal Other Findings: + diastolic dysfunction (grade 1) Valvular Disease: + no significant valvular disease Other Testing [facility], [place] [phone] CT Scan Report Patient: Micheal ROMO Date: 06/25/20 MR#: [id number]: [address] Acct ID:[id number]: Date: 1940City Zip: [place] [address] Age: 80Location: 2N Sex: F Room/Bed: [facility] Att Phy: [facility] Jacobson, [facility] H[facility] Nancy Phy: Diamond Hewitt DOService Date: 06/26/20 Fam Phy:Interpreting Phy: Ezekiel Markham MD Admit Phy: Randolph Jacobson MD Ordering Phy: Randolph Jacobson MD cc: ~ CT SCAN OF THE BRAIN WITHOUT IV CONTRAST CLINICAL HISTORY: Fall. Syncope. COMPARISON STUDY: No priors. TECHNIQUE: Unenhanced axial CT scan of the brain is performed from the vertex to the skull base. A dose lowering technique was utilized adhering to the principles of ALARA. CT DOSE: 614.27 mGy.cm FINDINGS: Brain parenchyma: Left MCA territory encephalomalacia is consistent with a remote infarct. There are age-related involutional changes noting mild subcortical and periventricular microangiopathic change. There is no hemorrhage, mass effect, or evidence of acute territorial ischemia by CT criteria. Cárdenas- white matter differentiation is preserved. No extra-axial fluid collection is seen. Ventricles, sulci, cisterns: Prominent secondary to involutional change. Intracranial vasculature: There is atherosclerotic calcification of the cavernous carotid and vertebral arteries. Calvarium: The skeletal structures are osteopenic. No depressed calvarial fracture is identified. Sinuses and mastoids: The visualized paranasal sinuses are clear. The mastoid air cells are well pneumatized. Orbits: The bony orbits are grossly intact. There is evidence of bilateral ocular lens surgery. IMPRESSION: There is no hemorrhage, mass effect, or evidence of acute territorial ischemia by CT criteria. ACT 112: Negative or not required by law.
[2020-06-26] MEDS ORDERED: HYDROmorphone INJ 1 MG/ML SYRINGE IV PRN (17:08)
[2020-06-26] MEDS ORDERED: LABETALOL HCL IV 5 MG/ML 20ML IV PRN (17:08)
[2020-06-26] MEDS ORDERED: ONDANSETRON INJ 2 MG/ML 2 ML VIAL IV PRN (17:08)
[2020-06-26] MEDS ORDERED: ATROPINE SULFATE 0.1 MG/ML 10ML SYR IV PRN (17:08)
[2020-06-26] MEDS ORDERED: ePHEDrine sulfate 50 MG/ML AMP IV PRN (17:08)
[2020-06-26] MEDS ORDERED: fentaNYL citrate 100 MCG/2 ML VIAL IV PRN (17:08)
[2020-06-26] MEDS ORDERED: PHENYLEPHRINE 100MCG/ML 5ML SYR IV PRN (17:08)
[2020-06-26] MEDS ORDERED: BUPIVACAINE/EPINEPHRINE 0.25% 1:200,000 30 ML VIAL ONE (17:13)
--- NOTE | 2020-06-26 17:18 | History & Physical Bridge Note ---
Date of Service June 26, 2020 History & Physical Bridge Note I have examined the patient, reviewed the History & Physical and in the interval since the performance of the History & Physical I have noted the following changes of clinical significance: no changes noted. No further preop medical optimization needed. Proceed with left hip IMN.
[2020-06-26] MEDS ORDERED: BUPIVACAINE/EPINEPHRINE 0.25% 1:200,000 30 ML VIAL INFIL ONE (19:26)
--- NOTE | 2020-06-26 19:43 | Post Operative Brief Note ---
PG Immediate Post Op with CF Date of Surgery June 26, 2020 Pre & Post Diagnosis Operation Date: 06/26/20 07:30 Pre-Op Diagnosis: left hip fracture I identified the patient and participated in the time-out.: Yes Procedure Operation Date: 06/26/20 07:30 Actual Procedures p Left Hip Trochanteric Nail(Left) - Vladimir Sanabria Surgeon Vladimir Sanabria Database Marketing Specialist Watson Pelayo PA-C Estimated Blood Loss 300 Findings Consistent with Post-Op Diagnosis Specimens Specimen Description: No specimen per surgeon
[2020-06-26] MEDS ORDERED: NALOXONE HCL 0.4 MG/1 ML VIAL/CARP IV PRN (19:47)
--- NOTE | 2020-06-26 19:49 | Hospitalist Progress Note ---
Date of Service June 26, 2020 Assessment & Plan (1) Hip fracture, left: Secondary to accidental fall in her bedroom at home. Patient had no prodromal chest pain, dyspnea, palpitations, or dizziness/lightheadedness prior to the fall. She states she had loss of consciousness for 2-3 seconds at most. Denies any recent falls, syncope, or near-syncope otherwise. Echocardiogram without significant valvular disease Continue to hold eliquis in preparation for surgical repair for today Consult [facility] [place]. -Continue IV fluids postoperatively. No arrhythmias on telemetry-no need for telemetry monitoring postop -Pain control, bowel regimen (2) Fall: History suggests a purely accidental event with no prodromal symptoms. I am unclear if the patient had true loss of consciousness or not. She states it was for 2-3 seconds at most, if any actually occurred. No head trauma by her report. CT the head negative B12 level normal at 752 Vitamin D level normal at 33 No significant abnormalities on echocardiogram that would contribute to the syncope No abnormal rhythms on telemetry No need for further telemetry (3) Syncope: As above, possible but not definite Very brief as noted above. (4) History of DVT (deep vein thrombosis): Provoked, 2007, in setting of right TKR. Apparently she had an associated stroke during the VTE event as well. Records for that admission are not available as TKR was performed at [facility]. She was on coumadin for many years, then switched to eliquis in the last few years. I am uncertain why she has remained on anticoagulation for 12 years. She denies a.fib. Son doesn't recall any h/o a.fib either. Son reports they have kept her on anticoagulation this long "because she had the stroke." Continue to hold eliquis in preparation for surgery today. Following her surgery would resume her anticoagulation as previous when okay with orthopedics. (5) History of stroke: 2007 - see above. With right-sided residual weakness (6) Essential (primary) hypertension: Continue coreg BID. (7) GERD (gastroesophageal reflux disease): Continue PPI. (8) DVT prophylaxis: Hold eliquis for now. Resume post-op. Disposition-continued stay, can go to med/surgical floor postoperatively Admission and Anticipated Discharge Date Admission Date: June 25, 2020 Subjective Patient was seen just prior to going down for surgery. Reports pain in the hip, but otherwise is doing well. She denies chest pain or shortness of breath. Denies nausea or abdominal pain. Telemetry with normal sinus rhythm with rates in the 60s and 70s Review of Systems Review of Systems: All systems reviewed & are unremarkable except as noted in HPI & below Physical Exam Constitutional: WD/WN, vitals as above Eyes: + anicteric sclerae Neck: trachea midline, no thyromegaly Respiratory: normal respiratory effort, lungs clear to auscultation Cardiovascular: RRR, no murmur, no edema Chest (Breasts): Chest: normal inspection of chest Gastrointestinal (Abdomen): normal bowel sounds, soft, nontender, no hepatosplenomegaly Musculoskeletal: Extremities: no cyanosis and no clubbing Skin: no rashes, warm and dry Neurologic: awake Psychiatric: A+Ox3, euthymic affect Lymphatic: no lymphedema Results & Data Results & [facility] Vital Signs (Past 12 Hours) Vital Signs Temp Pulse Resp BP Pulse Ox 06/26/20 16:43 153/83 H 06/26/20 16:36 37.3 C 85 18 140/101 H 98 06/26/20 15:18 37 C 69 20 101/63 97 06/26/20 12:04 36.8 C 06/26/20 11:48 37.8 C H 76 94 H 121/71 06/26/20 07:47 37.5 C 72 16 114/58 L 96 Laboratory Results 06/26/20 06/26/20 06/26/20 Range/Units 16:31 16:31 07:32 Sodium (136-145) mmol/L Potassium (3.5-5.1) mmol/L Chloride (98-107) mmol/L Carbon Dioxide (21-32) mmol/L Anion Gap (3-11) BUN (7-18) mg/dl Creatinine (0.6-1.2) mg/dl Est Cr Clr Drug Dosing ml/min Est GFR ( Amer) Est GFR (Non-Af Amer) BUN/Creatinine Ratio (10-20) Glucose (70-99) mg/dl Calcium (8.5-10.1) mg/dl Vitamin B12 752 (211-911) pg/ml 25-OH Vitamin D Total (30-100) ng/ml TSH (0.300-4.500) uIu/ml Nasal Screen MRSA (PCR) (Negative) COVID-19 Eval Order Covid19 [facility] SARS-CoV-2, RNA, NAAT NEGATIVE (NEGATIVE) 06/26/20 06/26/20 06/25/20 Range/Units 07:32 07:32 22:03 Sodium 137 (136-145) mmol/L Potassium 3.8 (3.5-5.1) mmol/L Chloride 103 (98-107) mmol/L Carbon Dioxide 29 (21-32) mmol/L Anion Gap 5.0 (3-11) BUN 13 (7-18) mg/dl Creatinine 0.52 L (0.6-1.2) mg/dl Est Cr Clr Drug Dosing 89.5 ml/min Est GFR ( Amer) 103.9 Est GFR (Non-Af Amer) 89.6 BUN/Creatinine Ratio 25.2 H (10-20) Glucose 106 H (70-99) mg/dl Calcium 8.4 L (8.5-10.1) mg/dl Vitamin B12 (211-911) pg/ml 25-OH Vitamin D Total 33.8 (30-100) ng/ml TSH 0.529 (0.300-4.500) uIu/ml Nasal Screen MRSA (PCR) Negative (Negative) COVID-19 Eval Order SARS-CoV-2, RNA, NAAT (NEGATIVE) Diagnostic Findings Echocardiogram with LVEF 55-60%, no regional wall motion abnormalities, aortic valve sclerosis without stenosis, small pericardial effusion PG Care Time/CCT Total # of Minutes Spent Total Time Spent with Patient: Total time spent is greater than 50% in coordination of care (as documented) at patient's floor/unit and/or counseling patient: Coding Level of Care Code 96356 Subseq Hosp Care Lvl 2 Diagnoses Hip fracture, left S72.002A Encounter type: initial encounter Fracture type: closed Fall W19.XXXA Encounter type: initial encounter Syncope R55 Syncope type: unspecified History of DVT (deep vein thrombosis) Z86.718 History of stroke Z86.73 Essential (primary) hypertension I10 GERD (gastroesophageal reflux disease) K21.9 Esophagitis presence: esophagitis presence not specified DVT prophylaxis Z29.9 (1) Hip fracture, left Encounter type: initial encounter Fracture type: closed Qualified Code(s): S72.002A - Fracture of unspecified part of neck of left femur, initial encounter for closed fracture (2) Fall Encounter type: initial encounter Qualified Code(s): W19.XXXA - Unspecified fall, initial encounter (3) Syncope Syncope type: unspecified Qualified Code(s): R55 - Syncope and collapse (4) GERD (gastroesophageal reflux disease) Esophagitis presence: esophagitis presence not specified Qualified Code(s): K21.9 - Gastro-esophageal reflux disease without esophagitis
[2020-06-26] MEDS ORDERED: OXYCODONE HCL IR 5 MG TAB (IMMEDIATE RELEASE) PO PRN (19:53)
[2020-06-26] MEDS ORDERED: ACETAMINOPHEN 500 MG TAB PO PRN (19:53)
--- NOTE | 2020-06-26 20:06 | Operative Report ---
PG Post Operative Report Pre & Post Diagnosis Operation Date: 06/26/20 07:30 Pre-Op Diagnosis: left hip fracture I identified the patient and participated in the time-out.: Yes Procedure Operation Date: 06/26/20 07:30 Actual Procedures p Left Hip Trochanteric Nail(Left) - Vladimir Sanabria Surgeon Vladimir Sanabria Manager Of Change Watson Pelayo PA-C Estimated Blood Loss 300 Findings See Below Comminuted peritrochanteric fracture with basicervical and subtrochanteric involvement, requiring crutch elevation of the sub-trochanteric region. Stabilized with a 11 mm / 130 degree titanium cannulated trochanteric fixation nail measuring 360 mm, 11 mm titanium helical blade measuring 90 mm in length, and a titanium 5 mm x 46 mm distal locking screw. Specimens None Anesthesia Type General Complications none Disposition Accompanied Patient To Recovery: No Disposition: Recovery Room Indications 80-year-old female sustained a fall onto her left hip resulting in a peritrochanteric fracture. She is evaluated the hospital medically optimized for surgery. We discussed the risks and benefits of surgical intervention of this type of hip fracture. Alternatives are really bedrest which will likely result in nonunion and bedrest complications. After discussion of risks and benefits, that are outlined in the preoperative orthopedic consultation note, the patient and her nephew were agreeable to proceed with open or close reduction and internal fixation with likely trochanteric fixation nail. Description of Procedure On the day of surgery should be was greeted in the preoperative holding area and the informed consent was reviewed and confirmed. The surgical site was then identified by the patient and signed by myself. The patient was taken to the operating placed by the OR table and anesthesia was induced. The patient is then positioned on the fracture table. All jo prominences were well padded. The operative foot was placed in the fracture boot with abundant padding. The well leg was secured. We then positioned the lower extremities in a scissor fashion with a non-op leg flexed down to allow visualization with fluoroscopy which was confirmed before we prepped and draped. Surgical timeout was called and verified by all present. Antibiotics were infused, and equipment was available and functional. The procedure was initiated with a closed reduction maneuvers. Gentle in-line traction pulled the fracture out to length. The limb was then internally rotated to reduce the proximal femur. Flexion and adduction were used to adjust the reduction and allow access to the greater trochanter. Fracture was difficult to reduce because of the basicervical and subtrochanteric component. We had to flex the hip, placed on traction, adduction, and then released traction to capture the flexed head and neck fragment. We then had to adjust rotation, abduction/abduction, and traction until an acceptable reduction was achieved. We had adequate reduction prior to prepping and draping. The leg was then prepped and draped in usual sterile fashion. Surgical timeout was reconfirmed. We initiated the surgical internal fixation portion with finding the start point with the tip of the greater trochanter. Fluoroscopic guidance was used and a small poke hole was established. The start point was confirmed on fluoroscopy in AP and lateral planes and the pin was easily advanced manually. An incision was made about the pin to allow access for the reamers. The pin was then advanced past the lesser trochanter, and its position was confirmed using AP and lateral fluoroscopy. Given her bone quality on x- ray, the opening awl was used under fluoroscopic guidance over the guidepin. It was advanced slowly. The reduction pain was then advanced down the distal femur using the cannulated awl to the level of the superior pole of the patella. Measurement was taken from the tip of the trochanter down to the end of the guidewire, and the nail length was selected. We then began sequential reaming. Given the preoperative measurements and bone quality, a single reamer of 12.5 diameter was chosen which did provide some chatter in the diaphysis. An 11 mm nail was loaded onto the jig and advanced manually down the canal, while ensuring maintenance of the reduction on fluoroscopy. We then tapped it down into place until we achieve th e good position for our cephalo-medullary screw. The cannula was placed on the jig to allow positioning of the cephalo-medullary screw. The skin incision was made in the appropriate spot. The jig cannulas were then placed against the lateral cortex. The cephalo-medullary screw guidepin was advanced towards the femoral head. The center-center position was confirmed on fluoroscopy in AP and lateral planes. The length of the screw was measured off the guide. The helical blade screw was then opened on the back table and prepared on the screwdriver. The lateral cortical opening drill, fo llowed by the triple drill reamer for the helical blade was advanced under fluoroscopic guidance. The helical blade was advanced over the guidepin to appropriate position. The helical blade was locked in rotation and then the traction was taken off. Fluoroscopy confirmed maintenance of reduction and adequate position of the implant. Attention was then directed distally to perform the interlock screws in using perfect ekwok technique. 1 interlock screw was placed with a 5 mm diameter. The length was measured using a depth gauge, with fluoroscopic guidance. Unfortunately, the measured 40 mm screw was too long to get bicortical purchase, so a 46 screw was then exchanged. This completed the fixation. The wounds were then thoroughly irrigated with bulb syringe and normal saline. The deep fascial layer was approximated with #1 Vicryl suture. The dermal layer was approximated using 2-0 Vicryl suture. The final skin closure was completed with chhaya. Wounds were dressed with sterile Xeroform, sterile gauze, and foam tape over ABDs. The patient tolerated procedure well, awoke from anesthesia without complication, was extubated in the operating room, and transferred to the PACU in stable condition. Disposition: The patient be weightbearing as tolerated, but should minimize ambulation to only what is necessary for the first 6 weeks. This should be primarily standing, pivoting, transferring. PT/OT can attempt ambulation in the [place] to ensure safety. I recommended routine DVT prophylaxis consisting of resumption of her Eliquis on postoperative day 1. 24 hours of antibiotic prophylaxis should be continued. Physician assistant professor of english attestation: Watson Pelayo PA-C was present and scrubbed for the duration of the case. He was essential to prepping/draping, patient positioning, retraction, and assistance with wound closure. I attest to the content of the Intraoperative Record and any orders documented therein. Any exceptions are noted below.
--- NOTE | 2020-06-26 20:10 | Fluoroscopy Report ---
FL hip LT 2-3V HISTORY: 80 years-old Female LT TROCH NAIL is post placement of a left intratrochanteric nail COMPARISON: Left hip radiographs 06/25/2020 TECHNIQUE: 5 spot fluoroscopic images of the left hip were obtained utilizing 224.1 seconds fluorosco py time FINDINGS: Status post placement of an intratrochanteric nail with elongated medullary angelique. There is improved ne ar anatomic alignment of the acute intertrochanteric fracture. The lesser trochanter fracture is slig htly displaced medially. Distal cannulated screw is intact. Moderate left hip osteoarthritis. IMPRESSION: Fluoroscopic assistance as above. Please see operative report for further details. ACT 112: Negative or not required by law. The above report was generated using voice recognition software. It may contain grammatical, syntax o r spelling errors. Electronically signed by: Gareth Dobbs M.D. 06/26/2020 8:09 PM
--- NOTE | 2020-06-26 20:33 | Anesthesiology Progress Note ---
Date of Service June 26, 2020 Anesthesia Post Procedure Vital Signs Vital Signs: Temp Pulse Pulse Pulse Resp BP Pulse Ox 06/26/20 20:20 75 16 156/68 H 100 06/26/20 20:10 82 18 127/93 100 06/26/20 20:00 75 20 129/65 100 06/26/20 19:49 36.1 C L 89 16 160/77 H 100 06/26/20 16:43 153/83 H 06/26/20 16:36 37.3 C 85 18 140/101 H 98 06/26/20 15:18 37 C 69 20 101/63 97 06/26/20 12:04 36.8 C 06/26/20 11:48 37.8 C H 76 94 H 121/71 06/26/20 07:47 37.5 C 72 16 114/58 L 96 06/26/20 07:33 76 06/26/20 03:56 36.9 C 70 14 102/60 96 06/25/20 23:46 37.5 C 73 17 131/72 97 06/25/20 23:19 69 06/25/20 23:17 69 Pain Intensity Left Hip: Pain Intensity: 10 Transfer of Care Handoff Completed per policy Notes Mental Status: alert / awake / arousable and participated in evaluation Patient Amnestic to Procedure: Yes Nausea / Vomiting: adequately controlled Pain: adequately controlled Airway Patency, RR, SpO2: stable & adequate BP & HR: stable & adequate Hydration State: stable & adequate Anesthetic Complications: no major complications apparent and Pt Satisfied with anesthetic care
--- NOTE | 2020-06-26 20:34 | XRay Report ---
XR femur LT 2V routine HISTORY: 80 years-old Female postop, pacu proximal left femur fracture COMPARISON: Left hip radiographs 06/25/2020 TECHNIQUE: 2 radiographic views of the left femur FINDINGS: Acute comminuted fracture the proximal left femur including intratrochanteric fracture redemonstrated . There is improved alignment with persistent mild medial displacement of the lesser trochanteric fra cture fragment. Status post placement of an intratrochanteric nail with elongated medullary angelique. The hardware appears intact. Expected postsurgical soft tissue swelling and deep tissue air. Intact dista l cannulated screw. Distal lateral skin chhaya. Moderate left hip osteoarthritis. Severe osteoarthri tis of the knee. Knee joint effusion. IMPRESSION: Improved alignment of the comminuted intertrochanteric fracture status post post placemen t of an intratrochanteric nail with medullary angelique. ACT 112: Negative or not required by law. The above report was generated using voice recognition software. It may contain grammatical, syntax o r spelling errors. Electronically signed by: Gareth Dobbs M.D. 06/26/2020 8:32 PM
[2020-06-26] MEDS ORDERED: TRAMADOL HCL 50 MG TABLET PO PRN (20:49)
[2020-06-26] MEDS: DOCUSATE SODIUM/SENNA 50/8.6MG TAB PO SCH (21:27)
[2020-06-26] MEDS: OXYCODONE HCL IR 5 MG TAB (IMMEDIATE RELEASE) PO PRN (22:15)
[2020-06-27] MEDS: HYDROmorphone INJ 0.5 MG/0.5 ML SYR IV PRN ×2 (00:51→08:43)
[2020-06-27] MEDS: CEFAZOLIN 2000MG 2,000 MG/15 ML SYR IV SCH ×2 (00:56→08:32)
[2020-06-27] MEDS: carvediloL 25 MG TAB PO SCH ×2 (08:30→20:26)
[2020-06-27] MEDS: PANTOprazole 40 MG TAB PO SCH (08:30)
[2020-06-27] MEDS: SERTRALINE HCL 50 MG TABLET PO SCH (08:30)
[2020-06-27 08:41] LABS: Hematocrit (blood only) 26.2 % (37-47); Hemoglobin 8.5 g/dL (12.0-16.0); Immature Granulocytes # (auto) 0.04 K/uL (0.00-0.02); Immature Granulocytes % (auto) 0.3 %; Lymphocytes # (auto) 0.91 K/uL (1.2-3.4); Lymphocytes % (auto) 7.6 %; Mean Corpuscular Hemoglobin 32.8 pg (25-34); Mean Corpuscular Hgb Conc 32.4 g/dL (32-36); Mean Corpuscular Volume 101.2 fL (80-100); Mean Platelet Volume 11.3 fL (7.4-10.4); Monocytes # (auto) 0.95 K/uL (0.11-0.59); Monocytes % (auto) 7.9 %; Neutrophils # (auto) 10.14 K/uL (1.4-6.5); Neutrophils % (auto) 84.2 %; Platelet Count 203 K/uL (130-400); RDW Standard Deviation 47.5 fL (36.4-46.3); Red Blood Count 2.59 M/uL (4.2-5.4); White Blood Count 12.04 K/uL (4.8-10.8)
[2020-06-27] MEDS ORDERED: NON-FORMULARY MEDICATION (Omeprazole 20 MG) PO SCH (09:00)
[2020-06-27 09:17] LABS: BUN Creatinine Ratio 29.8 (10-20); Calcium 7.7 mg/dl (8.5-10.1); Est GFR (African American) 94.2; Est GFR (Non-African American) 81.3
--- NOTE | 2020-06-27 13:13 | Orthopedic Progress Note ---
Date of Service June 27, 2020 Assessment & Plan (1) Closed fracture of left hip: Making uncomplicated progress on POD1. H/H has dropped significantly, as expected from blood loss from fracture and subsequent surgery with eliquis. Expect continued drift for 48-72 hrs. - PT/OT: WBAT - Cont current pain mgt - OK to start Eliquis - will cover for DVT ppx. Cont SCDs. - Consider transfusion if she remains unable to mobilize due to fatigue/syncopal sx when standing - Finish 24hr abx periop ppx - Remove irby Dispo: per PT/OT, hospitalists. Followup w ortho clinic in 2-3 weeks for staple removal and interval hip xrays. Present on Admission?: Yes Admission and Anticipated Discharge Date Admission Date: June 25, 2020 Subjective Seen with her nephew at the bedside. She reports pain but improved since surgical fixation. Stood at the bedside with therapy, but was lightheaded. Feels well in bed. No SOB. Review of Systems Review of Systems: All systems reviewed & are unremarkable except as noted in HPI & below Physical Exam Physical Exam: SCDs in place and functional LLE: dressing c/d/i. +DF/PF/EHL. Thigh compartments soft. DNVI. Constitutional: well developed and well nourished; no acute distress and not intoxicated appearing Respiratory: normal respiratory effort; no respiratory distress Cardiovascular: Extremities: normal capillary refill; no edema Skin: no rashes, warm and dry Psychiatric: A+Ox3, euthymic affect Results & Data ([facility]) Vital Signs (Past 12 Hours) Vital Signs Temp Pulse Pulse Resp BP Pulse Ox 06/27/20 11:18 36.6 C 85 18 98/59 L 97 06/27/20 09:00 71 18 108/63 94 06/27/20 07:34 78 06/27/20 07:29 36.5 C 80 20 114/68 99 06/27/20 03:00 36.5 C 88 20 100/63 100 06/27/20 02:00 92 H Laboratory Tests 06/27/20 08:09 Hgb 8.5 L D Hct 26.2 L Radiographs show acceptable alignment and no hardware complications. PG Care Time/CCT Total # of Minutes Spent Total Time Spent with Patient: Total time spent is greater than 50% in coordination of care (as documented) at patient's floor/unit and/or counseling patient: Coding Level of Care Code None Diagnoses Closed fracture of left hip S72.002A
--- NOTE | 2020-06-27 14:36 | Hospitalist Progress Note ---
Date of Service June 27, 2020 Assessment & Plan (1) Hip fracture, left: Secondary to accidental fall in her bedroom at home. Patient had no prodromal chest pain, dyspnea, palpitations, or dizziness/lightheadedness prior to the fall. She states she had loss of consciousness for 2-3 seconds at most. Denies any recent falls, syncope, or near-syncope otherwise. Echocardiogram without significant valvular disease Consult [facility] Orthopedics appreciated.Now s/p ORIF on 06/26 Hgb dropped quite a bit from 12.2--> 8.5 and is lightheaded with sitting up or standing Also with tramadol-induced nausea--> dc tramadol and make tylenol 1000mg po q8h scheduled, IV dilaudid nad oxycodone prn pain - bowel regimen -repeat CBC and transfuse if hgb drops further given orthostasis -Ortho is ok with starting ELiquis--> begin this evening 5mg bid (2) Fall: History suggests a purely accidental event with no prodromal symptoms. I am unclear if the patient had true loss of consciousness or not. She states it was for 2-3 seconds at most, if any actually occurred. No head trauma by her report. CT the head negative B12 level normal at 752 Vitamin D level normal at 33 No significant abnormalities on echocardiogram that would contribute to the syncope No abnormal rhythms on telemetry No need for further telemetry (3) Acute blood loss anemia: hgb drop as above -check CBC now transfuse if hgb drops further follow CBC in AM (4) Syncope: As above, possible but not definite Very brief as noted above. (5) History of DVT (deep vein thrombosis): Provoked, 2007, in setting of right TKR. Apparently she had an associated stroke during the VTE event as well. Records for that admission are not available as TKR was performed at [facility]. She was on coumadin for many years, then switched to eliquis in the last few years. I am uncertain why she has remained on anticoagulation for 12 years. She denies a.fib. Son doesn't recall any h/o a.fib either. Son reports they have kept her on anticoagulation this long "because she had the stroke." -restart Eliquis this evening as above (6) History of stroke: 2007 - see above. With right-sided residual weakness (7) Essential (primary) hypertension: Continue coreg BID. (8) GERD (gastroesophageal reflux disease): Continue PPI. (9) DVT prophylaxis: CorinaALISIAnyasia Disposition-continued stay, can go to med/surgical floor Admission and Anticipated Discharge Date Admission Date: June 25, 2020 Subjective Pt feeling lightheaded with sitting up and standing today. Denies CP or SOB but remains on O2. Had some nausea after taking tramadol and couldn't eat her lunch. She did a large breakfast. No abd pain. Pain in knee was worse before lunch but better with the tramadol. Tele with NSR in the 80s Review of Systems Review of Systems: All systems reviewed & are unremarkable except as noted in HPI & below Physical Exam Constitutional: WD/WN, vitals as above Eyes: + anicteric sclerae Neck: trachea midline, no thyromegaly Respiratory: normal respiratory effort, lungs clear to auscultation Cardiovascular: RRR, no murmur, no edema Chest (Breasts): Chest: normal inspection of chest Gastrointestinal (Abdomen): normal bowel sounds, soft, nontender, no hepatosplenomegaly Musculoskeletal: Extremities: + extremities abnormal to inspection (left lat thigh with dressing in place), no cyanosis and no clubbing Skin: no rashes, warm and dry Neurologic: awake Psychiatric: A+Ox3, euthymic affect Genitourinary: Gonzalez in place with clear yellow urine Lymphatic: no lymphedema Results & Data Results & Data ([facility]) Vital Signs (Past 12 Hours) Vital Signs Temp Pulse Pulse Resp BP Pulse Ox 06/27/20 11:18 36.6 C 85 18 98/59 L 97 06/27/20 09:00 71 18 108/63 94 06/27/20 07:34 78 06/27/20 07:29 36.5 C 80 20 114/68 99 06/27/20 03:00 36.5 C 88 20 100/63 100 Laboratory Results 06/27/20 06/27/20 06/26/20 Range/Units 08:09 08:09 16:31 WBC 12.04 H (4.8-10.8) K/uL RBC 2.59 L (4.2-5.4) M/uL Hgb 8.5 L D (12.0-16.0) g/dL Hct 26.2 L (37-47) % MCV 101.2 H (80-100) fL MCH 32.8 (25-34) pg MCHC 32.4 (32-36) g/dL RDW Std Deviation 47.5 H (36.4-46.3) fL RDW Coeff of Hernan 13.0 (11.5-14.5) % Plt Count 203 (130-400) K/uL MPV 11.3 H (7.4-10.4) fL Immature Gran % (Auto) 0.3 % Neut % (Auto) 84.2 % Lymph % (Auto) 7.6 % Wilcox % (Auto) 7.9 % Eos % (Auto) 0.0 % Baso % (Auto) 0.0 % Neut # (Auto) 10.14 H (1.4-6.5) K/uL Lymph # (Auto) 0.91 L (1.2-3.4) K/uL Wilcox # (Auto) 0.95 H (0.11-0.59) K/uL Eos # (Auto) 0.00 (0-0.5) K/uL Baso # (Auto) 0.00 (0-0.2) K/uL Immature Gran # (Auto) 0.04 H (0.00-0.02) K/uL Sodium 135 L (136-145) mmol/L Potassium 4.0 (3.5-5.1) mmol/L Chloride 103 (98-107) mmol/L Carbon Dioxide 26 (21-32) mmol/L Anion Gap 6.0 (3-11) BUN 21 H D (7-18) mg/dl Creatinine 0.70 (0.6-1.2) mg/dl Est Cr Clr Drug Dosing 68.0 ml/min Est GFR ( Amer) 94.2 Est GFR (Non-Af Amer) 81.3 BUN/Creatinine Ratio 29.8 H (10-20) Glucose 136 H (70-99) mg/dl Calcium 7.7 L (8.5-10.1) mg/dl COVID-19 Eval Order SARS-CoV-2, RNA, NAAT NEGATIVE (NEGATIVE) 06/26/20 Range/Units 16:31 WBC (4.8-10.8) K/uL RBC (4.2-5.4) M/uL Hgb (12.0-16.0) g/dL Hct (37-47) % MCV (80-100) fL MCH (25-34) pg MCHC (32-36) g/dL RDW Std Deviation (36.4-46.3) fL RDW Coeff of Hernan (11.5-14.5) % Plt Count (130-400) K/uL MPV (7.4-10.4) fL Immature Gran % (Auto) % Neut % (Auto) % Lymph % (Auto) % Wilcox % (Auto) % Eos % (Auto) % Baso % (Auto) % Neut # (Auto) (1.4-6.5) K/uL Lymph # (Auto) (1.2-3.4) K/uL Wilcox # (Auto) (0.11-0.59) K/uL Eos # (Auto) (0-0.5) K/uL Baso # (Auto) (0-0.2) K/uL Immature Gran # (Auto) (0.00-0.02) K/uL Sodium (136-145) mmol/L Potassium (3.5-5.1) mmol/L Chloride (98-107) mmol/L Carbon Dioxide (21-32) mmol/L Anion Gap (3-11) BUN (7-18) mg/dl Creatinine (0.6-1.2) mg/dl Est Cr Clr Drug Dosing ml/min Est GFR ( Amer) Est GFR (Non-Af Amer) BUN/Creatinine Ratio (10-20) Glucose (70-99) mg/dl Calcium (8.5-10.1) mg/dl COVID-19 Eval Order Covid19 IDNow atMWAC SARS-CoV-2, RNA, NAAT (NEGATIVE) PG Care Time/CCT Total # of Minutes Spent Total Time Spent with Patient: Total time spent is greater than 50% in coordination of care (as documented) at patient's floor/unit and/or counseling patient: Coding Level of Care Code 55170 Subseq Hosp Care Lvl 3 Diagnoses Hip fracture, left S72.002A Encounter type: initial encounter Fracture type: closed Fall W19.XXXA Encounter type: initial encounter Acute blood loss anemia D62 Syncope R55 Syncope type: unspecified History of DVT (deep vein thrombosis) Z86.718 History of stroke Z86.73 Essential (primary) hypertension I10 GERD (gastroesophageal reflux disease) K21.9 Esophagitis presence: esophagitis presence not specified DVT prophylaxis Z29.9 (1) Hip fracture, left Encounter type: initial encounter Fracture type: closed Qualified Code(s): S72.002A - Fracture of unspecified part of neck of left femur, initial encounter for closed fracture (2) Fall Encounter type: initial encounter Qualified Code(s): W19.XXXA - Unspecified fall, initial encounter (3) Syncope Syncope type: unspecified Qualified Code(s): R55 - Syncope and collapse (4) GERD (gastroesophageal reflux disease) Esophagitis presence: esophagitis presence not specified Qualified Code(s): K21.9 - Gastro-esophageal reflux disease without esophagitis
[2020-06-27 15:14] LABS: Hematocrit (blood only) 23.1 % (37-47); Hemoglobin 7.7 g/dL (12.0-16.0); Mean Corpuscular Hemoglobin 33.2 pg (25-34); Mean Corpuscular Volume 99.6 fL (80-100); Mean Platelet Volume 10.8 fL (7.4-10.4); Platelet Count 157 K/uL (130-400); RDW Coefficient of Variation 12.9 % (11.5-14.5); Red Blood Count 2.32 M/uL (4.2-5.4); White Blood Count 12.16 K/uL (4.8-10.8)
[2020-06-27] MEDS: ACETAMINOPHEN 500 MG TAB PO SCH ×2 (15:43→21:17)
[2020-06-27 15:45] LABS: Mean Corpuscular Hgb Conc 33.3 g/dL (32-36)
[2020-06-27] MEDS ORDERED: SODIUM CHLORIDE 0.9% 250 ML IV PRN (16:39)
[2020-06-27] MEDS: DOCUSATE SODIUM/SENNA 50/8.6MG TAB PO SCH (20:26)
[2020-06-27] MEDS: APIXABAN 5 MG TABLET PO SCH (21:18)
[2020-06-28] MEDS: ACETAMINOPHEN 500 MG TAB PO SCH ×3 (05:38→20:56)
[2020-06-28] MEDS: PANTOprazole 40 MG TAB PO SCH (09:07)
[2020-06-28] MEDS: SERTRALINE HCL 50 MG TABLET PO SCH (09:07)
[2020-06-28] MEDS: APIXABAN 5 MG TABLET PO SCH ×2 (09:07→20:57)
[2020-06-28] MEDS: carvediloL 25 MG TAB PO SCH ×2 (09:07→20:57)
[2020-06-28 09:43] LABS: Basophils # (auto) 0.01 K/uL (0-0.2); Basophils % (auto) 0.1 %; Eosinophils # (auto) 0.03 K/uL (0-0.5); Eosinophils % (auto) 0.3 %; Hematocrit (blood only) 28.6 % (37-47); Hemoglobin 9.5 g/dL (12.0-16.0); Immature Granulocytes # (auto) 0.03 K/uL (0.00-0.02); Immature Granulocytes % (auto) 0.3 %; Lymphocytes % (auto) 9.6 %; Mean Corpuscular Hemoglobin 31.5 pg (25-34); Mean Corpuscular Hgb Conc 33.2 g/dL (32-36); Mean Corpuscular Volume 94.7 fL (80-100); Mean Platelet Volume 11.5 fL (7.4-10.4); Monocytes # (auto) 1.02 K/uL (0.11-0.59); Monocytes % (auto) 9.7 %; Neutrophils # (auto) 8.38 K/uL (1.4-6.5); Platelet Count 150 K/uL (130-400); RDW Coefficient of Variation 16.1 % (11.5-14.5); Red Blood Count 3.02 M/uL (4.2-5.4); White Blood Count 10.47 K/uL (4.8-10.8)
[2020-06-28 09:50] LABS: BUN Creatinine Ratio 34.2 (10-20); Calcium 7.7 mg/dl (8.5-10.1); Creatinine Clr Calc Pharmacy 62.6 ml/min; Est GFR (African American) 83.9; Est GFR (Non-African American) 72.4; Potassium 4.1 mmol/L (3.5-5.1)
--- NOTE | 2020-06-28 13:29 | Hospitalist Progress Note ---
Date of Service June 28, 2020 Assessment & Plan (1) Hip fracture, left: Secondary to accidental fall in her bedroom at home. Patient had no prodromal chest pain, dyspnea, palpitations, or dizziness/lightheadedness prior to the fall. She states she had loss of consciousness for 2-3 seconds at most. Denies any recent falls, syncope, or near-syncope otherwise. Echocardiogram without significant valvular disease, no arrhythmias on tele x 48 hours, ECG NSR Consult [facility] Orth[place]ics appreciated.Now s/p ORIF on 06/26 Hgb dropped quite a bit from 12.2--> 8.5->7.9 and was lightheaded with sitting up or standing--> now improved s/p PRBC transfusion Also with tramadol-induced nausea--> doing well with tylenol alone scheduled - bowel regimen-had small BM 06/28 -Eliquis 5mg bid for DVT proph (home med) (2) Fall: History suggests a purely accidental event with no prodromal symptoms. I am unclear if the patient had true loss of consciousness or not. She states it was for 2-3 seconds at most, if any actually occurred. No head trauma by her report. CT the head negative B12 level normal at 752 Vitamin D level normal at 33 No significant abnormalities on echocardiogram that would contribute to the syncope No abnormal rhythms on telemetry, ECG normal as above No need for further telemetry (3) Acute blood loss anemia: hgb drop as above -now s/p 2 units PRBCs on 06/27, much improved hgb up to 9.6, lightheadedness improved follow CBC in AM (4) Syncope: As above, possible but not definite Very brief as noted above. (5) History of DVT (deep vein thrombosis): Provoked, 2007, in setting of right TKR. Apparently she had an associated stroke during the VTE event as well. Records for that admission are not available as TKR was performed at [facility]. She was on coumadin for many years, then switched to eliquis in the last few years. I am uncertain why she has remained on anticoagulation for 12 years. She denies a.fib. Son doesn't recall any h/o a.fib either. Son reports they have kept her on anticoagulation this long "because she had the stroke." -continue Eliquis as above (6) History of stroke: 2007 - see above. With right-sided residual weakness (7) Essential (primary) hypertension: BPs controlled Continue coreg BID. (8) GERD (gastroesophageal reflux disease): Continue PPI. (9) DVT prophylaxis: MeryEric dozier Disposition-continued stay, can go to med/surgical floor today Admission and Anticipated Discharge Date Admission Date: June 25, 2020 Subjective Feeling much better today. Not lightheaded with sitting up,, no more nausea, pain controlled with tylenol only. Received 2 units PRBCs overnight Tele with NSR, rates 60-70s. Denies CP/SOB, is now weaned off O2 when I saw her. Had a small BM Review of Systems Review of Systems: All systems reviewed & are unremarkable except as noted in HPI & below Physical Exam Constitutional: WD/WN, vitals as above Eyes: + anicteric sclerae ENMT: external ear and nose normal, oropharynx normal Neck: trachea midline, no thyromegaly Respiratory: normal respiratory effort, lungs clear to auscultation Cardiovascular: RRR, no murmur, no edema Chest (Breasts): Chest: normal inspection of chest Gastrointestinal (Abdomen): normal bowel sounds, soft, nontender, no hepatosplenomegaly Musculoskeletal: Extremities: + extremities abnormal to inspection (left lat thigh with dressing in place), no cyanosis and no clubbing Skin: no rashes, warm and dry Neurologic: awake Psychiatric: A+Ox3, euthymic affect Lymphatic: no lymphedema Results & Data Results & Data ([facility]) Vital Signs (Past 12 Hours) Vital Signs Temp Pulse Pulse Resp BP BP Pulse Ox 06/28/20 11:26 37.1 C 82 18 109/64 95 06/28/20 08:00 06/28/20 07:34 76 06/28/20 07:00 36.8 C 78 20 109/63 98 06/28/20 03:00 37.1 C 82 20 147/68 H 100 06/28/20 02:20 75 06/28/20 01:30 36.9 C 78 16 120/60 100 Pulse Ox 06/28/20 11:26 06/28/20 08:00 94 06/28/20 07:34 06/28/20 07:00 06/28/20 03:00 06/28/20 02:20 06/28/20 01:30 Laboratory Results 06/28/20 06/28/20 06/27/20 Range/Units 08:56 08:56 14:57 WBC 10.47 (4.8-10.8) K/uL RBC 3.02 L (4.2-5.4) M/uL Hgb 9.5 L (12.0-16.0) g/dL Hct 28.6 L (37-47) % MCV 94.7 (80-100) fL MCH 31.5 (25-34) pg MCHC 33.2 (32-36) g/dL RDW Std Deviation 56.0 H (36.4-46.3) fL RDW Coeff of Hernan 16.1 H (11.5-14.5) % Plt Count 150 (130-400) K/uL MPV 11.5 H (7.4-10.4) fL Immature Gran % (Auto) 0.3 % Neut % (Auto) 80.0 % Lymph % (Auto) 9.6 % [place] % (Auto) 9.7 % Eos % (Auto) 0.3 % Baso % (Auto) 0.1 % Neut # (Auto) 8.38 H (1.4-6.5) K/uL Lymph # (Auto) 1.00 L (1.2-3.4) K/uL [place] # (Auto) 1.02 H (0.11-0.59) K/uL Eos # (Auto) 0.03 (0-0.5) K/uL Baso # (Auto) 0.01 (0-0.2) K/uL Immature Gran # (Auto) 0.03 H (0.00-0.02) K/uL Sodium 137 (136-145) mmol/L Potassium 4.1 (3.5-5.1) mmol/L Chloride 106 (98-107) mmol/L Carbon Dioxide 26 (21-32) mmol/L Anion Gap 5.0 (3-11) BUN 26 H (7-18) mg/dl Creatinine 0.77 (0.6-1.2) mg/dl Est Cr Clr Drug Dosing 62.6 ml/min Est GFR ( Amer) 83.9 Est GFR (Non-Af Amer) 72.4 BUN/Creatinine Ratio 34.2 H (10-20) Glucose 155 H (70-99) mg/dl Calcium 7.7 L (8.5-10.1) mg/dl Blood Type Blood Type Recheck A Positive Antibody Screen Crossmatch 06/27/20 06/25/20 Range/Units 14:57 11:25 WBC 12.16 H (4.8-10.8) K/uL RBC 2.32 L (4.2-5.4) M/uL Hgb 7.7 L (12.0-16.0) g/dL Hct 23.1 L (37-47) % MCV 99.6 (80-100) fL MCH 33.2 (25-34) pg MCHC 33.3 (32-36) g/dL RDW Std Deviation 47.0 H (36.4-46.3) fL RDW Coeff of Hernan 12.9 (11.5-14.5) % Plt Count 157 (130-400) K/uL MPV 10.8 H (7.4-10.4) fL Immature Gran % (Auto) % Neut % (Auto) % Lymph % (Auto) % [place] % (Auto) % Eos % (Auto) % Baso % (Auto) % Neut # (Auto) (1.4-6.5) K/uL Lymph # (Auto) (1.2-3.4) K/uL [place] # (Auto) (0.11-0.59) K/uL Eos # (Auto) (0-0.5) K/uL Baso # (Auto) (0-0.2) K/uL Immature Gran # (Auto) (0.00-0.02) K/uL Sodium (136-145) mmol/L Potassium (3.5-5.1) mmol/L Chloride (98-107) mmol/L Carbon Dioxide (21-32) mmol/L Anion Gap (3-11) BUN (7-18) mg/dl Creatinine (0.6-1.2) mg/dl Est Cr Clr Drug Dosing ml/min Est GFR ( Amer) Est GFR (Non-Af Amer) BUN/Creatinine Ratio (10-20) Glucose (70-99) mg/dl Calcium (8.5-10.1) mg/dl Blood Type A Positive Blood Type Recheck Antibody Screen NEGATIVE Crossmatch See Detail PG Care Time/CCT Total # of Minutes Spent Total Time Spent with Patient: Total time spent is greater than 50% in coordination of care (as documented) at patient's floor/unit and/or counseling patient: Coding Level of Care Code 69852 Subseq Hosp Care Lvl 2 Diagnoses Hip fracture, left S72.002A Encounter type: initial encounter Fracture type: closed Fall W19.XXXA Encounter type: initial encounter Acute blood loss anemia D62 Syncope R55 Syncope type: unspecified History of DVT (deep vein thrombosis) Z86.718 History of stroke Z86.73 Essential (primary) hypertension I10 GERD (gastroesophageal reflux disease) K21.9 Esophagitis presence: esophagitis presence not specified DVT prophylaxis Z29.9 (1) Syncope Syncope type: unspecified Qualified Code(s): R55 - Syncope and collapse (2) GERD (gastroesophageal reflux disease) Esophagitis presence: esophagitis presence not specified Qualified Code(s): K21.9 - Gastro-esophageal reflux disease without esophagitis (3) Hip fracture, left Encounter type: initial encounter Fracture type: closed Qualified Code(s): S72.002A - Fracture of unspecified part of neck of left femur, initial encounter for closed fracture (4) Fall Encounter type: initial encounter Qualified Code(s): W19.XXXA - Unspecified fall, initial encounter
[2020-06-28] MEDS: DOCUSATE SODIUM/SENNA 50/8.6MG TAB PO SCH (20:57)
[2020-06-29] MEDS: ACETAMINOPHEN 500 MG TAB PO SCH ×3 (05:21→20:43)
[2020-06-29 05:52] LABS: Eosinophils # (auto) 0.06 K/uL (0-0.5); Eosinophils % (auto) 0.6 %; Hematocrit (blood only) 27.4 % (37-47); Hemoglobin 8.9 g/dL (12.0-16.0); Immature Granulocytes # (auto) 0.03 K/uL (0.00-0.02); Immature Granulocytes % (auto) 0.3 %; Lymphocytes # (auto) 1.37 K/uL (1.2-3.4); Lymphocytes % (auto) 14.1 %; Mean Corpuscular Hgb Conc 32.5 g/dL (32-36); Mean Corpuscular Volume 95.5 fL (80-100); Mean Platelet Volume 11.4 fL (7.4-10.4); Monocytes % (auto) 13.4 %; Neutrophils # (auto) 6.93 K/uL (1.4-6.5); Neutrophils % (auto) 71.6 %; Platelet Count 157 K/uL (130-400); RDW Coefficient of Variation 15.8 % (11.5-14.5); RDW Standard Deviation 55.5 fL (36.4-46.3); Red Blood Count 2.87 M/uL (4.2-5.4); White Blood Count 9.69 K/uL (4.8-10.8)
[2020-06-29 05:58] LABS: Calcium 7.5 mg/dl (8.5-10.1); Creatinine Clr Calc Pharmacy 84.6 ml/min; Est GFR (African American) 100.8; Est GFR (Non-African American) 86.9; Potassium 3.9 mmol/L (3.5-5.1)
[2020-06-29] MEDS: SERTRALINE HCL 50 MG TABLET PO SCH (08:47)
[2020-06-29] MEDS: carvediloL 25 MG TAB PO SCH ×2 (08:47→20:39)
[2020-06-29] MEDS: APIXABAN 5 MG TABLET PO SCH ×2 (08:48→20:40)
[2020-06-29] MEDS: PANTOprazole 40 MG TAB PO SCH (08:48)
--- NOTE | 2020-06-29 14:58 | Orthopedic Progress Note ---
Date of Service June 29, 2020 Assessment & Plan (1) Closed fracture of left hip: Making expected progress on POD3. H/H has responded to yesterday's transfusion without apparent reaction. Continue POC. - PT/OT: WBAT - Eliquis - will cover for DVT ppx. Cont SCDs. Dispo: per PT/OT, hospitalists. Followup w ortho clinic in 2-3 weeks for staple removal and interval hip xrays. Will follow peripherally - call w questions. Present on Admission?: Yes Admission and Anticipated Discharge Date Admission Date: June 25, 2020 Subjective Saw this morning. Reports tolerable pain as she is sitting at side of bed. Was able to take some steps in room - pain at the hip, as expected, but improved since surgery. Low appetite. Thinks 'lightheadedness' improved. No other issues. States she prefers to go home if at all possible. Review of Systems Review of Systems: All systems reviewed & are unremarkable except as noted in HPI & below Physical Exam Physical Exam: LLE: hip dressing with mild serosanguinous discharge visible at proximal hip, distal two sites are c/d/i. DNVI. +EHL/PF/DF. Constitutional: well developed and well nourished; no acute distress and not intoxicated appearing Respiratory: normal respiratory effort; no respiratory distress Cardiovascular: Extremities: normal capillary refill; no edema Psychiatric: A+Ox3, euthymic affect Results & Data ([facility]) Vital Signs (Past 12 Hours) Vital Signs Temp Pulse Resp BP Pulse Ox 06/29/20 07:10 36.7 C 84 18 147/77 H 92 Laboratory Tests 06/29/20 05:17 WBC 9.69 Hgb 8.9 L Hct 27.4 L PG Care Time/CCT Total # of Minutes Spent Total Time Spent with Patient: Total time spent is greater than 50% in coordination of care (as documented) at patient's floor/unit and/or counseling patient: Coding Level of Care Code None Diagnoses Closed fracture of left hip S72.002A
[2020-06-29] MEDS: OXYCODONE HCL IR 5 MG TAB (IMMEDIATE RELEASE) PO PRN (19:43)
[2020-06-29] MEDS: DOCUSATE SODIUM/SENNA 50/8.6MG TAB PO SCH (20:43)
[2020-06-30] MEDS: ACETAMINOPHEN 500 MG TAB PO SCH ×2 (05:26→13:54)
[2020-06-30 05:46] LABS: Basophils # (auto) 0.01 K/uL (0-0.2); Basophils % (auto) 0.1 %; Eosinophils # (auto) 0.12 K/uL (0-0.5); Eosinophils % (auto) 1.3 %; Hematocrit (blood only) 26.1 % (37-47); Hemoglobin 8.5 g/dL (12.0-16.0); Immature Granulocytes # (auto) 0.04 K/uL (0.00-0.02); Immature Granulocytes % (auto) 0.4 %; Lymphocytes # (auto) 1.52 K/uL (1.2-3.4); Mean Corpuscular Hemoglobin 31.6 pg (25-34); Mean Corpuscular Hgb Conc 32.6 g/dL (32-36); Mean Platelet Volume 10.9 fL (7.4-10.4); Monocytes # (auto) 1.49 K/uL (0.11-0.59); Monocytes % (auto) 16.6 %; Neutrophils # (auto) 5.77 K/uL (1.4-6.5); Neutrophils % (auto) 64.6 %; Platelet Count 177 K/uL (130-400); RDW Coefficient of Variation 15.3 % (11.5-14.5); RDW Standard Deviation 53.9 fL (36.4-46.3); Red Blood Count 2.69 M/uL (4.2-5.4); White Blood Count 8.95 K/uL (4.8-10.8)
--- NOTE | 2020-06-30 07:53 | Hospitalist Progress Note ---
Date of Service June 29, 2020 Assessment & Plan (1) Hip fracture, left: Secondary to accidental fall in her bedroom at home. Patient had no prodromal chest pain, dyspnea, palpitations, or dizziness/lightheadedness prior to the fall. She states she had loss of consciousness for 2-3 seconds at most. Denies any recent falls, syncope, or near-syncope otherwise. Echocardiogram without significant valvular disease, no arrhythmias on tele x 48 hours, ECG NSR Consult [facility] Orthopedics appreciated IM nailing on 06/26, tolerated well, vitals stable, minimal pain Hgb dropped quite a bit from 12.2--> 8.5->7.9 and was lightheaded with sitting up or standing--> now improved s/p PRBC transfusion, Hb > 8 Also with tramadol-induced nausea--> doing well with tylenol alone scheduled - bowel regimen-had small BM 06/28 -Eliquis 5mg bid for DVT proph (home med) plan to go home with home therapy and family providing 24 hour care d/w , should be ready on 06/30 for home (2) Fall: History suggests a purely accidental event with no prodromal symptoms. unclear if the patient had true loss of consciousness or not. She states it was for 2-3 seconds at most, if any actually occurred. No head trauma by her report. CT the head negative B12 level normal at 752 Vitamin D level normal at 33 No significant abnormalities on echocardiogram that would contribute to the syncope No abnormal rhythms on telemetry, ECG normal as above No need for further telemetry (3) Acute blood loss anemia: hgb drop as above -now s/p 2 units PRBCs on 06/27, much improved hgb up to 8.9, lightheadedness resolved follow CBC on 06/30 (4) Syncope: As above, possible but not definite Very brief as noted above. (5) History of DVT (deep vein thrombosis): Provoked, 2007, in setting of right TKR. Apparently she had an associated stroke during the VTE event as well. Records for that admission are not available as TKR was performed at [facility]. She was on coumadin for many years, then switched to eliquis in the last few years. I am uncertain why she has remained on anticoagulation for 12 years. She denies a.fib. Son doesn't recall any h/o a.fib either. Son reports they have kept her on anticoagulation this long "because she had the stroke." -continue Eliquis as above (6) History of stroke: 2008 - see above. With right-sided residual weakness (7) Essential (primary) hypertension: BPs controlled Continue coreg BID. (8) GERD (gastroesophageal reflux disease): Continue PPI. (9) DVT prophylaxis: Merytasia Eric Disposition-continued stay, can go to med/surgical floor today Admission and Anticipated Discharge Date Admission Date: June 25, 2020 Subjective patient feeling well in afternoon on 06/29 spoke with case management, her family can provide 24 hour care for her rehab and recovery she refuses to consider rehab facility discussed with her that as long as she will be safe I am fine with her going home reviewed labs, hb stable she is eating fairly well, minimal pain in hip, no fever no chest pain, no dyspnea, no cough Review of Systems Review of Systems: All systems reviewed & are unremarkable except as noted in Subjective Musculoskeletal: + joint pain (mild hip pain when she moves) Physical Exam Constitutional: WD/WN, vitals as above Eyes: PERRL, conjunctivae normal, anicteric sclerae ENMT: external ear and nose normal, oropharynx normal Neck: trachea midline, no thyromegaly Respiratory: normal respiratory effort, lungs clear to auscultation Cardiovascular: RRR, no murmur, no edema Gastrointestinal (Abdomen): normal bowel sounds, soft, nontender, no hepatosplenomegaly Musculoskeletal: Head/Neck/Chest: normocephalic, head atraumatic and neck supple Extremities: + limited ROM of extremities (hip due to pain) and + abnormal strength (generalized weakness) Skin: no rashes, warm and dry Neurologic: patellar DTR's 2+ bilat, sensation intact and PERRL, EOMI, accommodation nl, no face palsy, no dysarthria Psychiatric: A+Ox3, euthymic affect Lymphatic: no cervical or axillary lymphadenopathy Results & Data Results & Data ([facility]) Vital Signs (Past 12 Hours) Vital Signs Temp Pulse Resp BP BP Pulse Ox 06/29/20 23:00 36.7 C 82 16 116/64 91 06/29/20 20:34 36.8 C 72 16 121/60 95 Medications Administered Current Inpatient Medications Acetaminophen (Acetaminophen 500 Mg Tab) 1,000 mg PO Q8 HOWARD Stop: 07/27/20 14:59 Last Admin: 06/30/20 05:26 Dose: 1,000 mg Documented by: Apixaban (Apixaban 5 Mg Tablet) 5 mg PO BID [facility] Stop: 07/27/20 20:59 Last Admin: 06/30/20 08:40 Dose: 5 mg Documented by: Bisacodyl (Bisacodyl 10 Mg Supp) 10 mg OK DAILY PRN PRN Reason: Constipation Stop: 07/25/20 15:57 Carvedilol (Carvedilol 25 Mg Tab) 25 mg PO BID [facility] Stop: 07/25/20 20:59 Last Admin: 06/30/20 08:40 Dose: 25 mg Documented by: Hydromorphone HCl (Hydromorphone Inj 0.5 Mg/0.5 Ml Syr) 0.25 mg IV Q3H PRN PRN Reason: Moderate/Severe Pain Stop: 07/09/20 15:57 Last Admin: 06/27/20 08:43 Dose: 0.25 mg Documented by: Loratadine (Loratadine 10 Mg Tab) 10 mg PO DAILY PRN PRN Reason: Allergy Symptoms Stop: 07/25/20 15:57 Magnesium Hydroxide (Magnesium Hydroxide Susp 30 Ml Udc) 30 ml PO DAILY PRN PRN Reason: Constipation Stop: 07/25/20 15:57 Naloxone HCl (Naloxone Hcl 0.4 Mg/1 Ml Vial/Carp) 0.1 mg IV UD PRN PRN Reason: Opioid Overdose Stop: 07/26/20 19:46 Ondansetron HCl (Ondansetron Inj 2 Mg/Ml 2 Ml Vial) 4 mg IV Q6H PRN PRN Reason: Nausea And Vomiting Stop: 07/25/20 15:57 Last Admin: 06/28/20 18:21 Dose: 4 mg Documented by: Oxycodone HCl (Oxycodone Hcl Ir 5 Mg Tab (Immediate Release)) 5 mg PO Q4H PRN PRN Reason: MODERATE Pain (4,5,6) Stop: 07/10/20 19:52 Last Admin: 06/28/20 18:21 Dose: 5 mg Documented by: Oxycodone HCl (Oxycodone Hcl Ir 5 Mg Tab (Immediate Release)) 10 mg PO Q4H PRN PRN Reason: SEVERE Pain (7,8,9,10) Stop: 07/10/20 19:52 Last Admin: 06/29/20 19:43 Dose: 10 mg Documented by: Pantoprazole Sodium (Pantoprazole 40 Mg Tab) 40 mg PO QAM HOAWRD Stop: 07/26/20 08:59 Last Admin: 06/30/20 08:39 Dose: 40 mg Documented by: Senna/Docusate Sodium (Docusate Sodium/Senna 50/8.6mg Tab) 2 tab PO HS HOWARD Stop: 07/25/20 20:59 Last Admin: 06/29/20 20:43 Dose: 2 tab Documented by: Sertraline HCl (Sertraline Hcl 50 Mg Tablet) 25 mg PO DAILY HOWARD Stop: 07/26/20 08:59 Last Admin: 06/30/20 08:40 Dose: 25 mg Documented by: PG Care Time/CCT Total # of Minutes Spent Total Time Spent with Patient: Total time spent is greater than 50% in coordination of care (as documented) at patient's floor/unit and/or counseling patient: Coding Level of Care Code 62480 Subseq Hosp Care Lvl 2 Diagnoses Hip fracture, left S72.002A Encounter type: initial encounter Fracture type: closed Fall W19.XXXA Encounter type: initial encounter Acute blood loss anemia D62 Syncope R55 Syncope type: unspecified History of DVT (deep vein thrombosis) Z86.718 History of stroke Z86.73 Essential (primary) hypertension I10 GERD (gastroesophageal reflux disease) K21.9 Esophagitis presence: esophagitis presence not specified DVT prophylaxis Z29.9 (1) Syncope Syncope type: unspecified Qualified Code(s): R55 - Syncope and collapse (2) GERD (gastroesophageal reflux disease) Esophagitis presence: esophagitis presence not specified Qualified Code(s): K21.9 - Gastro-esophageal reflux disease without esophagitis (3) Hip fracture, left Encounter type: initial encounter Fracture type: closed Qualified Code(s): S72.002A - Fracture of unspecified part of neck of left femur, initial encounter for closed fracture (4) Fall Encounter type: initial encounter Qualified Code(s): W19.XXXA - Unspecified fall, initial encounter
[2020-06-30] MEDS: PANTOprazole 40 MG TAB PO SCH (08:39)
[2020-06-30] MEDS: carvediloL 25 MG TAB PO SCH (08:40)
[2020-06-30] MEDS: SERTRALINE HCL 50 MG TABLET PO SCH (08:40)
[2020-06-30] MEDS: APIXABAN 5 MG TABLET PO SCH (08:40)
== END 2020-06-30 15:34 | disposition home health service (06) | DRG 481 ==
LOC: ED 10:47 → SUATTDRO 13:55 → 2N 13:55 → 3E 06-28 15:56

== ENCOUNTER 2020-08-06 12:20 | Observation (INO) ==
--- NOTE | 2020-08-03 09:03 | Anesthesiology Consultation ---
Date of Service August 03, 2020 Assessment & Plan (1) Encounter for pre-operative examination: COVID Status: As of 08/05 nurse assessment, patient denies travel to endemic area, known exposure/sick contacts, or symptoms of COVID19. Preoperative COVID19 testing completed on 07/31, results NEGATIVE. Chart Review Chart Review: Acceptable Risk for Surgery and Patient NOT seen in Pre Admission Testing History Surgery Operation Date: 08/04/20 10:10 Proposed Procedures p Left Hip Hardware Revision - Vladimir Sanabria Operation Date: 08/06/20 14:35 Proposed Procedures p Left Hip Hardware Removal with Cemented Bipolar Hip, - Hang Valentin MD s Possible Total Hip Replacement - Hang Valentin MD Height/Weight Height: 5 ft 5 in Weight: 77.111 kg Allergies Allergy/AdvReac Type Severity Reaction Status Date / Time No Known Allergies Allergy Unknown Unverified 08/05/20 08:40 Medications Home Medications Medication Instructions Recorded Confirmed Last Taken Eliquis 5 mg PO BID 06/25/20 08/05/20 06/24/20 Restasis 1 drp OPB BID PRN 06/25/20 08/05/20 06/24/20 carvedilol 25 mg PO BID 06/25/20 08/05/20 06/24/20 loratadine [Claritin] 10 mg PO DAILY PRN 06/25/20 08/05/20 06/24/20 omeprazole 20 mg PO QAM 06/25/20 08/05/20 06/24/20 sertraline 25 mg PO QAM 06/25/20 08/05/20 06/24/20 [id number] 1 tab PO QAM 08/05/20 08/05/20 Unknown [[facility]] Past Medical History Medical History (Updated 08/05/20 @ 08:48 by Nay Leal RN) Anxiety and depression Dry eye syndrome Essential (primary) hypertension GERD (gastroesophageal reflux disease) Hx of fracture of left hip Osteoarthritis Stroke 12 YEARS AGO (NO CURRENT PROBLEMS) Past Family History Family History (Updated 08/05/20 @ 08:48 by Nay Leal RN) Mother , from complications of hip Fx Hip fracture Family history of diabetes mellitus Father COPD (chronic obstructive pulmonary disease) Past Surgical History Surgical History (Updated 08/05/20 @ 08:48 by Nay Leal RN) H/O hernia repair inguinal History of cataract surgery RT/LEFT History of colonoscopy History of hip surgery L HIP TROCH NAIL 06/26/20. History of hysterectomy History of tonsillectomy History of tooth extraction S/P IVC filter RT LEG Status post total knee replacement, right Social History Smoking Status: Never smoker Hx Alcohol Use: No Hx Substance Use: No Testing Laboratory Results 08/03/20 12:05 Blood Type A Positive 08/03/20 12:05 Antibody Screen POSITIVE A 08/03/20 12:05 06/29/20 SODIUM: 138 POTASSIUM: 3.9 CHLORIDE: 107 CO2: 30 BUN: 20 CREATININE: 0.57 GLUCOSE: 112 06/25/20 PT: 11.5 PTT: 25.7 INR: 1.1 Electrocardiogram Date: 06/25/20 Findings: + NSR @ (68bpm) Nonspecific ST and TWA. Chest X-Ray Date: 06/25/20 Findings: + NAD Echocardiogram Date: 06/26/20 EF: 55-60% LV Function: normal RWMA: + none Other Findings: + LVH (mild concentric) and + diastolic dysfunction (grade I) Normal RV function and size. AV sclerosis without stenosis. Small pericardial effusion.
[2020-08-03 12:53] LABS: Eosinophils # (auto) 0.04 K/uL (0-0.5); Eosinophils % (auto) 0.5 %; Hemoglobin 11.8 g/dL (12.0-16.0); Immature Granulocytes # (auto) 0.01 K/uL (0.00-0.02); Immature Granulocytes % (auto) 0.1 %; Lymphocytes # (auto) 1.59 K/uL (1.2-3.4); Lymphocytes % (auto) 20.8 %; Mean Corpuscular Hemoglobin 31.8 pg (25-34); Mean Corpuscular Hgb Conc 31.1 g/dL (32-36); Mean Corpuscular Volume 102.4 fL (80-100); Mean Platelet Volume 11.1 fL (7.4-10.4); Monocytes # (auto) 0.56 K/uL (0.11-0.59); Monocytes % (auto) 7.3 %; Neutrophils # (auto) 5.44 K/uL (1.4-6.5); Neutrophils % (auto) 71.3 %; Platelet Count 283 K/uL (130-400); RDW Coefficient of Variation 15.5 % (11.5-14.5); RDW Standard Deviation 57.8 fL (36.4-46.3); Red Blood Count 3.71 M/uL (4.2-5.4); White Blood Count 7.64 K/uL (4.8-10.8)
[~2020-08-06 12:20] MED LIST: ACETAMINOPHEN 500 MG TAB PO SCH; BUPIVACAINE 0.5 % 5 MG/1 ML PF 10ML VIAL ONE; CEFAZOLIN 2000MG 2,000 MG/15 ML SYR IV SCH; FAMOTIDINE 20 MG TAB PO SCH; GABAPENTIN 300 MG CAP PO SCH; LR 500ML BOLUS, THEN 15ML/HR IV SCH; LR 60ML/HR IV SCH; TRANEXAMIC ACID 1,000 MG **IV Pre-op IV SCH
--- NOTE | 2020-08-06 12:55 | History & Physical Bridge Note ---
Date of Service August 06, 2020 History & Physical Bridge Note I have examined the patient, reviewed the History & Physical and in the interval since the performance of the History & Physical I have noted the following changes of clinical significance: no changes noted
[2020-08-06] MEDS ORDERED: PROPOFOL IV EMULSION 10 MG/ML 20 ML VIAL IV ONE (14:06)
[2020-08-06] MEDS ORDERED: MIDAZOLAM HCL 1 MG/ML 2ML VIAL ONE (14:06)
[2020-08-06] MEDS ORDERED: fentaNYL citrate 100 MCG/2 ML VIAL ONE (14:06)
[2020-08-06] MEDS ORDERED: LIDOCAINE HCL 2% 2 ML VIAL/AMP(20MG/ML) INFIL ONE (14:06)
--- NOTE | 2020-08-06 14:36 | History & Physical Bridge Note ---
Date of Service August 06, 2020 History & Physical Bridge Note I have examined the patient, reviewed the History & Physical and in the interval since the performance of the History & Physical I have noted the following changes of clinical significance: After extensive discussion with colleagues, we have decided best option is hardware removal and placement of cemented arthroplasty. Explained to patient and family and desire to proceed.
[2020-08-06] MEDS ORDERED: ATROPINE SULFATE 0.1 MG/ML 10ML SYR IV PRN (14:37)
[2020-08-06] MEDS ORDERED: ePHEDrine sulfate 50 MG/ML AMP IV PRN (14:37)
[2020-08-06] MEDS ORDERED: HYDROmorphone INJ 1 MG/ML SYRINGE IV PRN (14:37)
[2020-08-06] MEDS ORDERED: ONDANSETRON INJ 2 MG/ML 2 ML VIAL IV PRN ×2 (14:37→19:02)
[2020-08-06] MEDS ORDERED: BUPIVACAINE 0.5 % 5 MG/1 ML MPF 30ML VIAL ONE ×2 (14:38→14:46)
[2020-08-06] MEDS ORDERED: EPINEPHrine INJ 1 MG/ML AMP ONE (14:38)
[2020-08-06] MEDS ORDERED: THROMBIN FOR SOLN 20000 UNIT KIT ONE (14:39)
[2020-08-06] MEDS ORDERED: BACITRACIN INJ 50,000 UNIT VIAL ONE (14:39)
[2020-08-06] MEDS ORDERED: VANCOMYCIN HCL 1000MG/20ML VIAL ONE (15:15)
[2020-08-06] MEDS ORDERED: VASOPRESSIN 20 UNIT/ML VIAL ONE (17:21)
[2020-08-06] MEDS ORDERED: FUROSEMIDE 10 MG/ML 10 ML VIAL IV ONE (17:46)
--- NOTE | 2020-08-06 18:10 | Post Operative Brief Note ---
PG Immediate Post Op with CF Date of Surgery August 06, 2020 Pre & Post Diagnosis Operation Date: 08/04/20 10:10 <No data on this case meets the specified criteria> Operation Date: 08/06/20 14:35 Pre-Op Diagnosis: Left Hip Fracture, Failed Hardware/Fixation Status Post Trochanteric Nailing Post-Op Diagnosis: Left Hip Fracture, Failed Hardware/Fixation Status Post Trochanteric Nailing I identified the patient and participated in the time-out.: Yes Procedure Operation Date: 08/04/20 10:10 <No data on this case meets the specified criteria> Operation Date: 08/06/20 14:35 Actual Procedures p Left Femur Hardware Removal, Left Cemented Calcar Replacement Total Hip Replacement(Left) - Hang Valentin MD Surgeon Hang Valentin MD Liquid Floor And Wall Applier Delgado, OCHOA Estimated Blood Loss 500 Findings Consistent with Post-Op Diagnosis Fluids 1500 cc Crystalloid + 2 Units pRBCs Specimens Specimen Description: A. Left Femoral Head Drains Gonzalez Catheter (inserted by PA after anesthesia without difficulty) Anesthesia Type Spinal MAC Complications none Disposition Accompanied Patient To Recovery: Yes Disposition: Recovery Room
--- NOTE | 2020-08-06 18:51 | XRay Report ---
XR hip 1V LT w pelvis HISTORY: 80 years-old Female IN PACU - A/P PELVIS and LATERAL HIP left hip total joint arthroplasty COMPARISON: Left femur radiographs 07/31/2020 TECHNIQUE: AP view of the pelvis with 2 views of the left hip FINDINGS: Demineralized appearance of the bones. Moderate right hip osteoarthritis. Left hip total joint arthro plasty with elongated femoral stem. Numerous corticated ossifications are again noted projecting over the greater and lesser trochanters. No acute fracture or unexpected radiopaque foreign body. Gonzalez c atheter is noted. Lateral skin chhaya are present along with expected postoperative soft tissue swel ling and deep tissue air. Ill-defined lucencies projecting over the distal femoral diaphysis are like ly secondary to air within the soft tissues. IMPRESSION: Left hip total joint arthroplasty with expected postoperative changes. ACT 112: Negative or not required by law. The above report was generated using voice recognition software. It may contain grammatical, syntax o r spelling errors. Electronically signed by: Gareth Dobbs M.D. 08/06/2020 6:50 PM
--- NOTE | 2020-08-06 18:53 | Anesthesiology Progress Note ---
Date of Service August 06, 2020 Anesthesia Post Procedure Vital Signs Vital Signs: Temp Pulse Pulse Resp BP BP Pulse Ox 08/06/20 18:50 68 18 115/64 100 08/06/20 18:40 36.4 C L 66 18 121/62 100 08/06/20 18:30 67 18 116/66 100 08/06/20 18:20 67 20 119/70 100 08/06/20 18:12 37.0 C 75 18 108/71 99 08/06/20 12:54 36.8 C 79 20 140/86 96 Transfer of Care Handoff Completed per policy Notes Mental Status: alert / awake / arousable and participated in evaluation Patient Amnestic to Procedure: Yes Nausea / Vomiting: adequately controlled Pain: adequately controlled Airway Patency, RR, SpO2: stable & adequate BP & HR: stable & adequate Hydration State: stable & adequate Anesthetic Complications: no major complications apparent and Pt Satisfied with anesthetic care
[2020-08-06] MEDS ORDERED: TRAMADOL HCL 50 MG TABLET PO PRN (19:02)
[2020-08-06] MEDS ORDERED: METOCLOPRAMIDE HCL INJ 5 MG/ML 2 ML VIAL IV PRN (19:02)
[2020-08-06] MEDS ORDERED: ALUMINUM/MAGNESIUM SUSP 30 ML UDC PO PRN (19:02)
[2020-08-06] MEDS ORDERED: LORATADINE 10 MG TAB PO PRN (19:02)
[2020-08-06] MEDS ORDERED: bisacodyL 10 MG SUPP PR PRN (19:02)
[2020-08-06] MEDS ORDERED: NALOXONE HCL 0.4 MG/1 ML VIAL/CARP IV PRN (19:02)
[2020-08-06] MEDS ORDERED: MAGNESIUM HYDROXIDE SUSP 30 ML UDC PO PRN (19:02)
--- NOTE | 2020-08-06 19:19 | Operative Report ---
Post Operative Report Pre & Post Diagnosis Operation Date: 08/04/20 10:10 <No data on this case meets the specified criteria> Operation Date: 08/06/20 14:35 Pre-Op Diagnosis: Left Hip Fracture, Failed Hardware/fixation Status Post Trochanteric Nailing Post-Op Diagnosis: Left Hip Fracture, Failed Hardware/fixation Status Post Trochanteric Nailing I identified the patient and participated in the time-out.: Yes Procedure Operation Date: 08/04/20 10:10 <No data on this case meets the specified criteria> Operation Date: 08/06/20 14:35 Actual Procedures p Left Femur Hardware Removal, Left Cemented Calcar replacement total Hip Replacement(Left) - Hang Valentin MD Surgeon Hang Valentin MD Camp Program Director Delgado, OCHOA Estimated Blood Loss 500 Findings Consistent with Post-Op Diagnosis Operative findings revealed the failed fixation of the femoral neck with cutting through the helical blade into the articular surface. The fracture did appear t o be healing in a shortened position. It was still unstable. She had extensive damage to the superior donor acetabulum measuring about 2 and half to 3 cm in length and 2 cm in width with complete loss of the cartilage surface in the weightbearing surface of the acetabulum likely related to the helical blade. The remainder of her cartilage in her hip joint looked well preserved. There is obvious cut out of the helical blade with a protruding through the femoral head by several millimeters. Fluids 1500 cc of crystalloid and 2 units of packed red blood cells. Specimens Left femoral head sent for pathology. Drains None. Anesthesia Type Spinal MAC Complications none Disposition Accompanied Patient To Recovery: Yes Disposition: Recovery Room Indications Patient is an 80-year-old female who sustained a fall about 5 weeks ago. She had an intertrochanteric hip fracture which was treated with a long trochanteric nail. Unfortunately, over time her fracture is shortened and the nail cut out into the articular surface. There was no way this was going to be manageable for this patient and she was indicated for surgical treatment. We discussed multiple options and elected proceed with hardware removal, calcar replacement hip arthroplasty. I felt this gave her the best chance of a functional hip and no further surgery. Description of Procedure Operative implants consisted of: 1. Biomet G7 size 48 mm acetabular shell. 2. 6.5 cancellus acetabular screws 1 of 35 mm length and 1 to 20 mm length. 3. 38 mm metal dual mobility liner. 4. Alexandra calcar replacement cemented femoral stem-13 x 170 with a 10 mm calcar buildup. 5. +3.5/28 mm articular ball. 6. 38 mm dual mobility bearing. 7. Small cement restrictor. 8. Alexandra distal cement centralizer. Patient was taken to the operating identified and placed on the operating table supine position protectors were properly padded. IV antibiotics were tried by anesthesia team. A spinal anesthetic and been implemented holding area. A Gonzalez catheter was placed in sterile fashion. The patient then placed in the right lateral decubitus position. An axillary roll was placed. A Stulberg hip positioner was used for positioning. Left hip and leg were then scrubbed with Hibiclens and then prepped with ChloraPrep and draped in usual sterile fashion. Attention was first drawn to remove the distal interlocking screw. Incision was made directly over the previous incision site directly down to the bone. The interlocking screw was identified and backed out without incident. Attention then drawn toward the proximal hip. A posterior lateral approach of the left hip was then performed to a curvilinear incision excuse in the distal incision site from the helical blade extending over the trochanter and then curving posteriorly. Sharp dissection was carried out through subcutaneous tissue down to level the IT band gluteal fascia the IT band gluteal fascia then incised longitudinally in line with the skin incision. There was abundant callus which was evident and made exposure significantly more difficult and a less anatomic. I skeletonized the posterior aspect of the femur down to the joint capsule. We did have to release the gluteal sling as well to identify the base of the fracture. I then released the posterior capsule from the hip joint and dislocated the hip. I then relocated the hip. I made an incision over the hip abductors in order to identify the tip of the helical blade. We are able to identify this in the thread and the extraction device. I then none screw the setscrew. We then made a stab incision in the vastus lateralis and identified the helical blade and remove that without incident. I then remove the IM nail without incident. The hip was then redislocated. I then used a saw and an osteotome to remove the femoral head and neck down to the base of the fracture which was in the lesser trochanter. There was quite a bit of bony fragments that I had to remove with use of a rondure which were adherent to each other as well as other bone tissues. I spent a significant amount of time exposing this proximal femur to allow for appropriate implant placement. I then retracted the femur anteriorly and address the acetabulum. The acetabulum was exposed. She had a very large area where the cartilage was completely worn off the superior dome of the acetabulum measuring about 2 and half to 3 cm incision from anterior posterior and about 2cm medial to lateral. With this finding I felt it absolutely necessary to place a acetabular cup. I cleaned out the pulmonary fat. I resected the acetabular labrum. I then reamed beginning with size 43 and progressing up to 47. We did reamed up to 48 and then placed a 48 mm Biomet G7 acetabular shell in about 40 degrees of lateral opening and about 20 to 25 degrees of anteversion. I did place a little additional anteversion as I was concerned about instability in this patient. I then resected a small anterior osteophyte. A trial liner was placed. Attention drawn the femur. The proximal femur was entered with a cookie-cutter. I then used a canal finder and then reamed up to a size 12. We then trialed the hip and I felt the 10 mm buildup block was necessary. We tried different options and I felt the +3.5 head and neck to provide the most stability and appropriate leg lengths. I elect to place these implants. All trial implants were removed. An permanent 38 mm metal dual mobility liner was placed. A cement restrictor was placed distally in the femur. A double batch Palacos G cement was mixed with an additional gram of vancomycin due to t his recent surgery. I then injected the canal and then placed a calcar placement cemented stem with a 10 mm buildup in about 20 degrees of anteversion. Once the cement hardened I trialed the different neck lengths again and elected proceed with a +3.5. The +3.5/20 mm head along with the dual mobility liner was placed in order to maximize stability. The hip was relocated. The soft tissue tension seemed appropriate. Leg lengths seemed appropriate. Elected proceed with closing. The wound was irrigated copious also pulsatile lavage solution. I did inject locally with 60 cc of half percent Marcaine with epinephrine. The posterior capsule was then repaired to the posterior aspect of the greater trochanter with #2 Tycron suture. I did repair the gluteal sling to the posterior aspect of the femur to maximize stability. The IT band gluteal fascia then closed with #1 PDS suture running fashion for the subcutaneous tissue then closed 2 layers the deep layer #2-0 Vicryl suture in a buried interrupted fashion followed by the more superficial layer of 2-0 Vicryl suture in buried interrupted fashion. Skin was then closed with skin chhaya. I also irrigated the distal wound and closed after with the 2-0 subcutaneous sutures and skin chhaya. The leg was then cleaned dried a sterile dressing composed Xeroform, 4 x 4's, ABD pad, foam tape was applied. Patient then transferred to the recovery room in stable condition. Patient tolerated procedure well there are no complications. Watson Natarajan, my physician dental assistant, was present for the entire procedure. His assistance was required for appropriate patient positioning, prepping and draping, surgical exposure, performing the technical details of the operation, placement the implants, closure of the wound, and placement of the sterile bandage. I attest to the content of the Intraoperative Record and any orders documented therein. Any exceptions are noted below.
[2020-08-06] MEDS ORDERED: INFLUENZA ADMINISTRATION CHARGE ONE (19:26)
[2020-08-06] MEDS ORDERED: INFLUENZA VACCINE HIGH DOSE 65+ 0.5 ML SYR IM ONE (19:26)
[2020-08-06] MEDS: SODIUM CHLORIDE 0.9% 1000ML 1,000 ML IV SCH (19:32)
[2020-08-06] MEDS: HYDROmorphone INJ 0.5 MG/0.5 ML SYR IV PRN (20:02)
[2020-08-06] MEDS ORDERED: PNEUMOCOCCAL ADMINISTRATION CHARGE ONE (21:00)
[2020-08-06] MEDS ORDERED: PNEUMOCOCCAL POLYSACCHARIDES 25 MCG/0.5 ML VIAL/SYR IM ONE (21:00)
--- NOTE | 2020-08-06 21:14 | Consultation ---
Date of Consultation August 06, 2020 Assessment & Plan (1) Intertrochanteric fracture: 80yo C female s/p fall 5 weeks ago resulting in left closed intertrochanteric fracture s/p initial treatment with long trochanteric nail. Patient returns with hardware failure, had removal and SAMANTHA performed today. Pain is well controlled at present -Pain control, anti-emetics and bowel regimen per primary team -Patient initiated on Eliquis 2.5mg po BID for DVT prophylaxis per Ortho. Will defer to them when it is safe to resume her home dosage of 5mg po BID -Rehabilitation instruction per primary team Patient his a history of provoked DVT in 2007 following a right TKR performed at [facility]. She apparently had a stroke at that time as well. She was started on Coumadin then switched to Eliquis. She does not have known history of AF. Uncertain why she remains on anticoagulation following a provoked event many years back. (2) Failed hardware: As above Present on Admission?: Yes (3) Acute blood loss anemia: Patient received two units of luekoreduced RBCs for acute blood loss anemia. She is presently afebrile, HD stable -Repeat CBC in AM -Ferrous gluconate 324mg po BID Present on Admission?: Yes (4) GERD (gastroesophageal reflux disease): Chronic. Stable -Continue Protonix 40mg po daily Present on Admission?: Yes (5) Essential (primary) hypertension: Blood pressure stable at present -Continue Carvedilol 25mg po BID -Continue to monitor Present on Admission?: Yes (6) Dry eye syndrome: Chronic. Stable. 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 Apparently this occurred in setting of a DVT -Continue to monitor -Continue Eliquis Present on Admission?: Yes History of Present Illness Reason for Consultation: Post operative medical management Attending Physician: Hang Valentin MD History of Present Illness Mirella Hutton is an 80yo C female with history of prior CVA (2007 with residual sensory deficit of the RUE/RLE, word-finding issues at times), HTN, GERD, Anxiety/Depression s/p removal of left femur hardware and LEFT SAMANTHA performed today by Dr. Valentin. The patient had a fall approximately 5 weeks ago which resulted in an intertrochanteric hip fracture. She had placement of a long trochanteric nail. Over time her fracture shortened causing the nail to encroach on the articular surface. She had removal of hardware today and hip arthroplasty. Surgery was well tolerated. No immediate complications identified. Performed under Spinal/MAC anesthesia. EBL of 500mL. Patient had transfusion of 2u PRBCs. Currently doing well. She just received a dose of Morphine with improvement in her pain. She denies nausea. Able to take sips of water without difficulty but has not yet eaten. No BM, flatus or urination yet. Patient with no complaints at this time Allergies Allergy/AdvReac Type Severity Reaction Status Date / Time No Known Allergies Allergy Unknown Verified 08/06/20 12:48 Home Medications Home Medications Medication Instructions Recorded Confirmed Type Eliquis 5 mg PO BID 06/25/20 08/06/20 History Restasis 1 drp OPB BID PRN 06/25/20 08/06/20 History carvedilol 25 mg PO BID 06/25/20 08/06/20 History loratadine [Claritin] 10 mg PO DAILY PRN 06/25/20 08/06/20 History omeprazole 20 mg PO QAM 06/25/20 08/06/20 History sertraline 25 mg PO QAM 06/25/20 08/06/20 History odzlhpcq-pfs-wyzt-FA-lutein 1 tab PO QAM 08/05/20 08/06/20 History [Centrum Silver Women] Patient History Medical History (Updated 08/06/20 @ 21:09 by Renetta Valentin DO) Anxiety and depression Dry eye syndrome Essential (primary) hypertension GERD (gastroesophageal reflux disease) Hx of fracture of left hip Osteoarthritis Stroke 12 YEARS AGO (NO CURRENT PROBLEMS) Surgical History H/O hernia repair inguinal History of cataract surgery RT/LEFT History of colonoscopy History of hip surgery L HIP TROCH NAIL 06/26/20. History of hysterectomy History of tonsillectomy History of tooth extraction S/P IVC filter RT LEG Status post total knee replacement, right Family History (Updated 08/05/20 @ 08:48 by Nay Leal RN) Mother , from complications of hip Fx Hip fracture Family history of diabetes mellitus Father COPD (chronic obstructive pulmonary disease) Social History Smoking Status: Never smoker Second Hand Exposure: No; Do You Dip or Chew Tobacco: No; Tobacco Cessation Education Requested by Patient: No Hx Alcohol Use: No Hx Substance Use: No Preferred Language: Malay Communication Ability: Effective Human Resources Office Manager Required: No Beliefs That Will Affect Care: None marital status: Single Current Living Situation: Family Current Living Situation Comment: LIVES WITH NEPHEW AND SISTER current occupational status: retired How many Children do You have: 0 other: worked at [employer] [facility] - Supply Feels Safe at Home: Yes Safety Concerns: Feels Safe At This Time Assistive Devices: Glasses, Hearing Aid - Bilateral and Walker Assistive Devices Comment: PARTIAL PLATES Review of Systems Review of Systems: All systems reviewed & are unremarkable except as noted in HPI & below Physical Exam Physical Exam: General: patient resting comfortably, NAD, non-toxic in appearance, AA&O x 4 Skin: warm, dry, intact, no rashes or lesions, appears pale HEENT: NC/AT, PERRL, EOMI, anicteric sclera, conjunctiva without injection, external ear normal to inspection and nontender, nares patent, moist mucus membranes, dentition intact, no oropharyngeal lesions, neck supple, trachea midline, no LAD, no thyromegaly, no JVD Heart: +S1/S2, regular, no m/r/g Lungs: equal air entry bilaterally, no rales/rhonchi/wheezes Abd: +BS, soft, NT/ND, no masses/organomegaly/ascites Ext: warm, 2+ pulses in UE/LE bilaterally, no clubbing/cyanosis or edema, NV intact, ice packs in place, dressings c/d/i Neuro: nonfocal, patient AA&O x 4, speech intact, no facial droop Results & Data ([facility]) Vital Signs (Past 12 Hours) Vital Signs Temp Pulse Pulse Resp BP BP Pulse Ox 08/06/20 19:00 36.2 C L 62 20 117/76 100 08/06/20 18:50 68 18 115/64 100 08/06/20 18:40 36.4 C L 66 18 121/62 100 08/06/20 18:30 67 18 116/66 100 08/06/20 18:20 67 20 119/70 100 08/06/20 18:12 37.0 C 75 18 108/71 99 08/06/20 12:54 36.8 C 79 20 140/86 96 Laboratory Results Lab Results 08/03/20 08/03/20 08/06/20 Range/Units 12:05 12:05 12:36 WBC 7.64 (4.8-10.8) K/uL RBC 3.71 L (4.2-5.4) M/uL Hgb 11.8 L (12.0-16.0) g/dL Hct 38.0 (37-47) % MCV 102.4 H (80-100) fL MCH 31.8 (25-34) pg MCHC 31.1 L (32-36) g/dL RDW Std Deviation 57.8 H (36.4-46.3) fL RDW Coeff of Hernan 15.5 H (11.5-14.5) % Plt Count 283 (130-400) K/uL MPV 11.1 H (7.4-10.4) fL Immature Gran % (Auto) 0.1 % Neut % (Auto) 71.3 % Lymph % (Auto) 20.8 % Bent % (Auto) 7.3 % Eos % (Auto) 0.5 % Baso % (Auto) 0.0 % Neut # (Auto) 5.44 (1.4-6.5) K/uL Lymph # (Auto) 1.59 (1.2-3.4) K/uL Bent # (Auto) 0.56 (0.11-0.59) K/uL Eos # (Auto) 0.04 (0-0.5) K/uL Baso # (Auto) 0.00 (0-0.2) K/uL Immature Gran # (Auto) 0.01 (0.00-0.02) K/uL Blood Type A Positive A Positive Antibody Screen POSITIVE A POSITIVE A Antibody Identification Anti-E Anti-E Antibody ID Comment Antigen Identification Cancelled Crossmatch See Detail Diagnostic Findings XR hip 1V LT w pelvis HISTORY: 80 years-old Female IN PACU - A/P PELVIS and LATERAL HIP left hip total joint arthroplasty COMPARISON: Left femur radiographs 07/31/2020 TECHNIQUE: AP view of the pelvis with 2 views of the left hip FINDINGS: Demineralized appearance of the bones. Moderate right hip osteoarthritis. Left hip total joint arthroplasty with elongated femoral stem. Numerous corticated ossifications are again noted projecting over the greater and lesser trochant ers. No acute fracture or unexpected radiopaque foreign body. Gonzalez catheter is noted. Lateral skin chhaya are present along with expected postoperative soft tissue swelling and deep tissue air. Ill-defined lucencies projecting over the distal femoral diaphysis are likely secondary to air within the soft tissues. IMPRESSION: Left hip total joint arthroplasty with expected postoperative changes. ACT 112: Negative or not required by law. The above report was generated using voice recognition software. It may contain grammatical, syntax or spelling errors. Electronically signed by: Gareth Dobbs M.D. 08/06/2020 6:50 PM Dictated: 08/06/201847 Transcribed: 08/06/201847 PG Care Time/CCT Total # of Minutes Spent Total Time Spent with Patient: Total time spent is greater than 50% in coordination of care (as documented) at patient's floor/unit and/or counseling patient: Coding Level of Care Code 15191 Inpt Consult Level 3 Diagnoses Intertrochanteric fracture S72.143A Failed hardware Acute blood loss anemia D62 GERD (gastroesophageal reflux disease) K21.9 Esophagitis presence: esophagitis presence not specified Essential (primary) hypertension I10 Dry eye syndrome H04.129 Laterality: unspecified laterality Stroke I63.9 (1) GERD (gastroesophageal reflux disease) Esophagitis presence: esophagitis presence not specified Qualified Code(s): K21.9 - Gastro-esophageal reflux disease without esophagitis (2) Dry eye syndrome Laterality: unspecified laterality Qualified Code(s): H04.129 - Dry eye syndrome of unspecified lacrimal gland
[2020-08-06] MEDS: CEFAZOLIN 2000MG 2,000 MG/15 ML SYR IV SCH (22:47)
[2020-08-06] MEDS: SENNA 8.6 MG TAB PO SCH (22:49)
[2020-08-06] MEDS: ACETAMINOPHEN 500 MG TAB PO SCH (22:49)
[2020-08-06] MEDS: DOCUSATE SODIUM 100 MG CAP PO SCH (22:49)
[2020-08-06] MEDS: carvediloL 25 MG TAB PO SCH (22:49)
[2020-08-07] MEDS: RESTASIS - ORDER AWAITING ACTION SCH ×3 (00:20→15:09)
[2020-08-07] MEDS ORDERED: TRANEXAMIC ACID / 0.7% NACL 1,000 MG/100 ML BAG IV SCH (01:00)
[2020-08-07] MEDS: SODIUM CHLORIDE 0.9% 1000ML 1,000 ML IV SCH (05:20)
[2020-08-07] MEDS: ACETAMINOPHEN 500 MG TAB PO SCH ×3 (05:42→23:22)
[2020-08-07 06:07] LABS: Basophils # (auto) 0.01 K/uL (0-0.2); Basophils % (auto) 0.1 %; Hematocrit (blood only) 31.3 % (37-47); Hemoglobin 10.3 g/dL (12.0-16.0); Immature Granulocytes # (auto) 0.03 K/uL (0.00-0.02); Immature Granulocytes % (auto) 0.3 %; Lymphocytes # (auto) 1.49 K/uL (1.2-3.4); Lymphocytes % (auto) 15.2 %; Mean Corpuscular Hemoglobin 31.6 pg (25-34); Mean Corpuscular Hgb Conc 32.9 g/dL (32-36); Mean Platelet Volume 10.5 fL (7.4-10.4); Monocytes % (auto) 8.2 %; Neutrophils # (auto) 7.45 K/uL (1.4-6.5); Neutrophils % (auto) 76.2 %; Platelet Count 191 K/uL (130-400); RDW Coefficient of Variation 17.9 % (11.5-14.5); RDW Standard Deviation 62.6 fL (36.4-46.3); Red Blood Count 3.26 M/uL (4.2-5.4); White Blood Count 9.78 K/uL (4.8-10.8)
[2020-08-07] MEDS: CEFAZOLIN 2000MG 2,000 MG/15 ML SYR IV SCH (06:18)
[2020-08-07 06:38] LABS: BUN Creatinine Ratio 46.3 (10-20); Calcium 7.4 mg/dl (8.5-10.1); Creatinine Clr Calc Pharmacy 135.1 ml/min; Est GFR (African American) 119.4; Potassium 3.6 mmol/L (3.5-5.1)
[2020-08-07] MEDS: DOCUSATE SODIUM 100 MG CAP PO SCH ×2 (07:36→19:59)
[2020-08-07] MEDS: ASCORBIC ACID 500 MG TAB PO SCH ×2 (07:36→16:00)
[2020-08-07] MEDS: SERTRALINE HCL 50 MG TABLET PO SCH (07:36)
[2020-08-07] MEDS: MULTIVITAMIN TAB PO SCH (07:37)
[2020-08-07] MEDS: PANTOprazole 40 MG TAB PO SCH (07:37)
[2020-08-07] MEDS: FERROUS GLUCONATE 324 MG TAB PO SCH ×2 (07:37→16:00)
[2020-08-07] MEDS: carvediloL 25 MG TAB PO SCH (07:37)
[2020-08-07] MEDS ORDERED: NON-FORMULARY MEDICATION (Multivit-Min-Iron-Fa-Lutein [Centrum Silver Women] 1 TAB) PO SCH (09:00)
--- NOTE | 2020-08-07 10:29 | Hospitalist Progress Note ---
Date of Service August 07, 2020 Assessment & Plan (1) Orthostatic dizziness: Patient is once again orthostasis likely from hypovolemia. Patient will have additional intravenous fluids given hemoglobin only dropped from 11 to 10 g (2) Intertrochanteric fracture: 80yo C female s/p fall 5 weeks ago resulting in left closed intertrochanteric fracture s/p initial treatment with long trochanteric nail. Patient returns with hardware failure, had removal and SAMANTHA performed 08/06 -Patient initiated on Eliquis 2.5mg po BID for DVT prophylaxis per Ortho. Patient his a history of provoked DVT in 2007 following a right TKR performed at [facility]. She apparently had a stroke at that time as well. She was started on Coumadin then switched to Eliquis. She does not have known history of AF. Uncertain why she remains on anticoagulation following a provoked event many years back. (3) Failed hardware: As above (4) Acute blood loss anemia: Patient received two units of luekoreduced RBCs for acute blood loss anemia. She is presently afebrile, HD stable -Repeat CBC in AM -Ferrous gluconate 324mg po BID (5) GERD (gastroesophageal reflux disease): Chronic. Stable -Continue Protonix 40mg po daily (6) Essential (primary) hypertension: Blood pressure stable at present -We will reduce carvedilol 12.5 twice daily at this time (7) Dry eye syndrome: Chronic. Stable. 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 Apparently this occurred in setting of a DVT -Continue to monitor -Continue Eliquis Admission and Anticipated Discharge Date Admission Date: August 06, 2020 Subjective this pt was tearful, she was disappointed that she cannot stand without being dizzy. she has some minor left hip pain and bruising Review of Systems Review of Systems: Mild to moderate distress and fatigue no headache, blurry or double vision no speech or swallowing issues no chest pain, pressure or palpitations no shortness of breath, cough or wheezes no abdominal pain, nausea or vomiting, diarrhea or constipation no dysuria, hematuria or frequency Left hip pain swelling and ecchymosis no back pain, CVA tenderness or radicular pain no bruising, bleeding or rashes no focal signs of weakness or numbness or altered sensation no complaints or anxiety or depression. Physical Exam Physical Exam: The patient was tearful being disappointed that she could not walk Vital signs as documented. Shows to have orthostasis upon confrontational testing Head exam is normocephalic atraumatic no scleral icterus Neck is without JVD, thyromegaly, or carotid bruits. Lungs are clear to auscultation, no focal loss of breath sounds Cardiac exam, Rhythm is regular.. No murmurs, rubs or gallops. Abdominal exam reveals normal bowel sounds, soft non tender, no masses Extremities tip is ecchymotic and swollen mildly tender Neurologic exam is alert and oriented, no focal loss of strength or sensation Skin is without bruises or rashes Psychologically is without concerns for anxiety or depression. Results & Data Results & Data ([facility]) Vital Signs (Past 12 Hours) Vital Signs Temp Pulse Pulse Resp BP Pulse Ox 08/07/20 10:02 83 18 126/65 84 L 08/07/20 08:00 98.1 F 84 18 97/50 L 99 08/07/20 04:01 98.1 F 81 18 104/52 L 96 08/06/20 23:34 97.3 F L 85 18 123/66 96 PG Care Time/CCT Total # of Minutes Spent Total Time Spent with Patient: Total time spent is greater than 50% in coordination of care (as documented) at patient's floor/unit and/or counseling patient: Coding Level of Care Code 80899 Subseq Hosp Care Lvl 3 Diagnoses Orthostatic dizziness R42 Intertrochanteric fracture S72.143A Failed hardware Acute blood loss anemia D62 GERD (gastroesophageal reflux disease) K21.9 Esophagitis presence: esophagitis presence not specified Essential (primary) hypertension I10 Dry eye syndrome H04.129 Laterality: unspecified laterality Stroke I63.9 (1) Dry eye syndrome Laterality: unspecified laterality Qualified Code(s): H04.129 - Dry eye syndrome of unspecified lacrimal gland (2) GERD (gastroesophageal reflux disease) Esophagitis presence: esophagitis presence not specified Qualified Code(s): K21.9 - Gastro-esophageal reflux disease without esophagitis
--- NOTE | 2020-08-07 11:15 | Progress Notes ---
DATE: 08/07/2020 SUBJECTIVE: An 80-year-old white female postop day 1 from a left femur hardware removal and calcar replacement, total hip arthroplasty. Fairly big surgery for this patient. She is doing quite well this morning. Pain seems to be controlled. No new complaints. Denies any chest pain or shortness of breath. Not feeling dizzy or lightheaded. OBJECTIVE: VITAL SIGNS: Temperature 36.7. Vital signs stable. GENERAL: Physical examination shows a pleasant elderly female. She is lying in bed, looks quite comfortable this morning. EXTREMITIES: Examination of the left hip reveals leg lengths to be equal. Leg is well aligned. Dressing is clean, dry and intact. She can dorsiflex and plantarflex her foot appropriately. She is neurologically intact. LABORATORY DATA: Hemoglobin 10.3. Hematocrit 31.3. Electrolytes are stable. ASSESSMENT: An 80-year-old white female postop day 1 from a left hip femur hardware removal and calcar replacement and total hip replacement, doing remarkably well. Her pain seems to be controlled. Hip is located. She is neurologically intact. Hemoglobin is stable. She does have a history of thrombosis in the past. PLAN: 1. DVT prophylaxis include thigh-high TEDs, SCDs, and we will start her back on prophylactic doses of Eliquis 24 hours postop. We may keep her at that dose as her indications for anticoagulation are bit questionable to start out and she is very thin and frail lady and may be adequate to be on a lower dose. 2. PT/OT. She can weightbear as tolerated. She does need to obey total hip precautions strictly for the first 6 weeks. 3. Medical management as per the Medicine Service. 4. Pain control, seems to be doing pretty well with current pain regimen. 5. Disposition: She will likely need a rehab stay. We will get Automotive Painter working on that.
[2020-08-07] MEDS: HYDROmorphone INJ 0.5 MG/0.5 ML SYR IV PRN (12:24)
[2020-08-07] MEDS ORDERED: Nursing to Pharmacy Communication SCH (18:45)
[2020-08-07] MEDS ORDERED: SODIUM CHLORIDE 0.9% 1000ML IV SCH (19:00)
[2020-08-07] MEDS: SENNA 8.6 MG TAB PO SCH (19:58)
[2020-08-07] MEDS: APIXABAN 2.5 MG TAB PO SCH (19:58)
[2020-08-07] MEDS ORDERED: carvediloL 12.5 MG TAB PO SCH (21:00)
[2020-08-08] MEDS: RESTASIS - ORDER AWAITING ACTION SCH ×3 (00:21→23:48)
[2020-08-08] MEDS ORDERED: MELATONIN 3 MG TAB PO PRN (00:59)
[2020-08-08] MEDS: ACETAMINOPHEN 500 MG TAB PO SCH ×3 (06:32→21:56)
--- NOTE | 2020-08-08 07:40 | Hospitalist Progress Note ---
Date of Service August 08, 2020 Assessment & Plan (1) Orthostatic dizziness: this pt has orthostasis by measurements, but is without symptoms, will transfer to [facility] but give another liter of fluids (2) Intertrochanteric fracture: 80yo C female s/p fall 5 weeks ago resulting in left closed intertrochanteric fracture s/p initial treatment with long trochanteric nail. Patient returns with hardware failure, had removal and SAMANTHA performed 08/06 -Patient initiated on Eliquis 2.5mg po BID for DVT prophylaxis per Ortho. Patient his a history of provoked DVT in 2007 following a right TKR performed at [facility]. She apparently had a stroke at that time as well. She was started on Coumadin then switched to Eliquis. She does not have known history of AF. Uncertain why she remains on anticoagulation following a provoked event many years back. (3) Failed hardware: As above (4) Acute blood loss anemia: Patient received two units of luekoreduced RBCs for acute blood loss anemia. She is presently afebrile, HD stable -Repeat CBC shows hgb 9.6 -Ferrous gluconate 324mg po BID (5) GERD (gastroesophageal reflux disease): Chronic. Stable -Continue Protonix 40mg po daily (6) Essential (primary) hypertension: Blood pressure stable at present -We will reduce carvedilol 6.25 twice daily at this time (7) Dry eye syndrome: Chronic. Stable. 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 Apparently this occurred in setting of a DVT -Continue to monitor -Continue Eliquis Admission and Anticipated Discharge Date Admission Date: August 06, 2020 Subjective this pt is doing well, she is less tearful, she is still with lower blood pressure but is asymptomatic. hgb is low but stable Review of Systems Review of Systems: Mild to moderate distress and fatigue no headache, blurry or double vision no speech or swallowing issues no chest pain, pressure or palpitations no shortness of breath, cough or wheezes no abdominal pain, nausea or vomiting, diarrhea or constipation no dysuria, hematuria or frequency Left hip pain swelling and ecchymosis no back pain, CVA tenderness or radicular pain no bruising, bleeding or rashes no focal signs of weakness or numbness or altered sensation no complaints or anxiety or depression. Physical Exam Physical Exam: The patient was tearful being disappointed that she could not walk Vital signs as documented. Shows to have orthostasis upon confrontational testing Head exam is normocephalic atraumatic no scleral icterus Neck is without JVD, thyromegaly, or carotid bruits. Lungs are clear to auscultation, no focal loss of breath sounds Cardiac exam, Rhythm is regular.. No murmurs, rubs or gallops. Abdominal exam reveals normal bowel sounds, soft non tender, no masses Extremities tip is ecchymotic and swollen mildly tender Neurologic exam is alert and oriented, no focal loss of strength or sensation Skin is without bruises or rashes Psychologically is without concerns for anxiety or depression. Results & Data Results & Data ([facility]) Vital Signs (Past 12 Hours) Vital Signs Temp Pulse Pulse Resp BP Pulse Ox 08/08/20 03:58 98.2 F 89 18 118/54 L 100 08/07/20 23:40 95 H 08/07/20 23:22 98.2 F 100 H 17 117/63 98 08/07/20 19:49 98.8 F 94 H 18 114/64 99 PG Care Time/CCT Total # of Minutes Spent Total Time Spent with Patient: Total time spent is greater than 50% in coordination of care (as documented) at patient's floor/unit and/or counseling patient: Coding Level of Care Code 59248 Subseq Hosp Care Lvl 2 Diagnoses Orthostatic dizziness R42 Intertrochanteric fracture S72.143A Failed hardware Acute blood loss anemia D62 GERD (gastroesophageal reflux disease) K21.9 Esophagitis presence: esophagitis presence not specified Essential (primary) hypertension I10 Dry eye syndrome H04.129 Laterality: unspecified laterality Stroke I63.9 (1) Dry eye syndrome Laterality: unspecified laterality Qualified Code(s): H04.129 - Dry eye syndrome of unspecified lacrimal gland (2) GERD (gastroesophageal reflux disease) Esophagitis presence: esophagitis presence not specified Qualified Code(s): K21.9 - Gastro-esophageal reflux disease without esophagitis
[2020-08-08] MEDS: MULTIVITAMIN TAB PO SCH (08:33)
[2020-08-08] MEDS: FERROUS GLUCONATE 324 MG TAB PO SCH ×2 (08:33→17:48)
[2020-08-08] MEDS: ASCORBIC ACID 500 MG TAB PO SCH ×2 (08:33→17:48)
[2020-08-08] MEDS: SERTRALINE HCL 50 MG TABLET PO SCH (08:33)
[2020-08-08] MEDS: DOCUSATE SODIUM 100 MG CAP PO SCH ×2 (08:33→21:14)
[2020-08-08] MEDS: PANTOprazole 40 MG TAB PO SCH (08:33)
[2020-08-08] MEDS: APIXABAN 2.5 MG TAB PO SCH ×2 (08:33→20:27)
--- NOTE | 2020-08-08 09:06 | Progress Notes ---
DATE: 08/08/2020 SUBJECTIVE: An 80-year-old white female postop day 2 from left hip IM nail removal and calcar replacement total hip arthroplasty. She is doing pretty well. Not a lot of pain. The biggest issue is she has been orthostatic getting up. Denies any chest pain or shortness of breath. OBJECTIVE: VITAL SIGNS: Temperature 37.0. Vital signs stable. GENERAL: Physical examination shows a pleasant elderly female. She is sitting up in bed, looks pretty comfortable this morning. EXTREMITIES: Examination of the left hip reveals the leg to be well aligned. Dressing is clean, dry and intact. Thigh is soft and supple. She is neurologically intact. LABORATORY DATA: Hemoglobin this morning is 9.6. ASSESSMENT: An 80-year-old white female postop day 2 from a left femur hardware removal and calcar replacement, total hip arthroplasty, doing reasonably well. The biggest issue is just been orthostasis when getting up. She has been volume replaced and appears pretty stable and we will see how she does today mobilization farley. PLAN: 1. DVT prophylaxis include thigh-high TEDs, SCDs, and we will put her back on a prophylactic dose of Eliquis for now. 2. PT/OT. She can weightbear as tolerated in the left hip and leg. She does need to obey hip precautions. 3. Pain control, seems to be doing okay with current pain regimen. 4. Medical management as per the Medicine Service. 5. Disposition: She will likely need a rehab stay. We need to get her mobilized and see how she is doing before making any definitive plans.
[2020-08-08] MEDS ORDERED: LACTATED RINGER'S 1,000 ML IV SCH (18:46)
[2020-08-08] MEDS: SENNA 8.6 MG TAB PO SCH (21:14)
[2020-08-08] MEDS: carvediloL 6.25 MG TAB PO SCH (21:56)
[2020-08-08] MEDS: MELATONIN 3 MG TAB PO SCH (22:29)
[2020-08-09] MEDS: ACETAMINOPHEN 500 MG TAB PO SCH ×3 (06:19→22:01)
[2020-08-09] MEDS: PANTOprazole 40 MG TAB PO SCH (07:59)
[2020-08-09] MEDS: ASCORBIC ACID 500 MG TAB PO SCH ×2 (07:59→17:20)
[2020-08-09] MEDS: SERTRALINE HCL 50 MG TABLET PO SCH (07:59)
[2020-08-09] MEDS: APIXABAN 2.5 MG TAB PO SCH ×2 (07:59→20:30)
[2020-08-09] MEDS: carvediloL 6.25 MG TAB PO SCH ×2 (08:00→20:30)
[2020-08-09] MEDS: RESTASIS - ORDER AWAITING ACTION SCH ×2 (08:00→16:49)
[2020-08-09] MEDS: FERROUS GLUCONATE 324 MG TAB PO SCH ×2 (08:00→17:20)
[2020-08-09] MEDS: MULTIVITAMIN TAB PO SCH (08:00)
[2020-08-09] MEDS: DOCUSATE SODIUM 100 MG CAP PO SCH ×2 (08:00→20:26)
--- NOTE | 2020-08-09 09:11 | Progress Notes ---
DATE: 08/09/2020 SUBJECTIVE: An 80-year-old white female now postop day 3 from a left hip IM nail removal and calcar replacement, total hip arthroplasty. She is doing quite well. Pain is better today. She seems much more comfortable. Denies any chest pain or shortness of breath. Not feeling dizzy or lightheaded. OBJECTIVE: VITAL SIGNS: Temperature 37.3. Vital signs stable. GENERAL: Shows a pleasant elderly female. She is sitting up in bed, looks pretty comfortable. EXTREMITIES: Examination of the left hip and leg reveals incision to be clean, dry and intact. No significant drainage. Her thigh is soft and supple. Leg lengths are equal. She is neurologically intact. ASSESSMENT: An 80-year-old white female postoperative day 3 from a left femur intramedullary nail removal and calcar replacement, total hip arthroplasty. She is doing quite well this morning. Looks back to baseline. Pain is controlled. She is neurologically intact. PLAN: 1. DVT prophylaxis including thigh-high TEDs, SCDs, and back on Eliquis. We are going to leave that at a prophylactic dose in the hospital. There is not a clear reason why she is on it, but it certainly helps and covers her for DVT prophylaxis and she does have a history of DVT in the past. 2. PT/OT. Weight bear as tolerated. Left total hip protocol. She does need to obey hip precautions. 3. Pain control, doing okay with current pain regimen. 4. Medical management as per the medicine service. 5. Disposition: She is doing pretty well from a functional standpoint. We are waiting to see how she does. She really wants to go home with home health and her nephew's assistance. We will see how therapy goes today. Possible discharge tomorrow.
--- NOTE | 2020-08-09 15:32 | Hospitalist Progress Note ---
Date of Service August 09, 2020 Assessment & Plan (1) Orthostatic dizziness: this pt has orthostasis by measurements, but is without symptoms, will transfer to [facility] but give another liter of fluids (2) Intertrochanteric fracture: 80yo C female s/p fall 5 weeks ago resulting in left closed intertrochanteric fracture s/p initial treatment with long trochanteric nail. Patient returns with hardware failure, had removal and SAMANTHA performed 08/06 -Patient initiated on Eliquis 2.5mg po BID for DVT prophylaxis per Ortho. We will continue prophylactic doses and encourage follow-up with the PCP in the future Patient his a history of provoked DVT in 2007 following a right TKR performed at [facility]. She apparently had a stroke at that time as well. She was started on Coumadin then switched to Eliquis. She does not have known history of AF. Uncertain why she remains on anticoagulation following a provoked event many years back. (3) Failed hardware: As above (4) Acute blood loss anemia: Patient received two units of luekoreduced RBCs for acute blood loss anemia. She is presently afebrile, HD stable -Repeat CBC shows hgb 9.6 -Ferrous gluconate 324mg po BID (5) GERD (gastroesophageal reflux disease): Chronic. Stable -Continue Protonix 40mg po daily (6) Essential (primary) hypertension: Blood pressure are low but stable -We will reduce carvedilol 6.25 twice daily at this time (7) Dry eye syndrome: Chronic. Stable. 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 Apparently this occurred in setting of a DVT -Continue to monitor -Continue Eliquis Admission and Anticipated Discharge Date Admission Date: August 08, 2020 Medicine will sign off at this time Subjective Patient is doing well she is walking short distances she has good night sleep she has no focal complaints or problems Review of Systems Review of Systems: Mild distress and fatigue no headache, blurry or double vision no speech or swallowing issues no chest pain, pressure or palpitations no shortness of breath, cough or wheezes no abdominal pain, nausea or vomiting, diarrhea or constipation no dysuria, hematuria or frequency Left hip pain swelling and ecchymosis no back pain, CVA tenderness or radicular pain no bruising, bleeding or rashes no focal signs of weakness or numbness or altered sensation no complaints or anxiety or depression. Physical Exam Physical Exam: The patient was which more encouraged today as she walks short distances in her room Vital signs as documented. Shows to have orthostasis upon confrontational testing however patient is asymptomatic with lower blood pressures. Head exam is normocephalic atraumatic no scleral icterus Neck is without JVD, thyromegaly, or carotid bruits. Lungs are clear to auscultation, no focal loss of breath sounds Cardiac exam, Rhythm is regular.. No murmurs, rubs or gallops. Abdominal exam reveals normal bowel sounds, soft non tender, no masses Extremities tip is ecchymotic and swollen mildly tender Neurologic exam is alert and oriented, no focal loss of strength or sensation Skin is without bruises or rashes Psychologically is without concerns for anxiety or depression. Results & Data Results & Data ([facility]) Vital Signs (Past 12 Hours) Vital Signs Temp Pulse Resp BP Pulse Ox 08/09/20 15:14 97.9 F 86 18 98/63 L 98 08/09/20 07:42 99.1 F 86 16 109/61 90 PG Care Time/CCT Total # of Minutes Spent Total Time Spent with Patient: Total time spent is greater than 50% in coordination of care (as documented) at patient's floor/unit and/or counseling patient: Coding Level of Care Code 37366 Subseq Hosp Care Lvl 2 Diagnoses Orthostatic dizziness R42 Intertrochanteric fracture S72.143A Failed hardware Acute blood loss anemia D62 GERD (gastroesophageal reflux disease) K21.9 Esophagitis presence: esophagitis presence not specified Essential (primary) hypertension I10 Dry eye syndrome H04.129 Laterality: unspecified laterality Stroke I63.9 (1) GERD (gastroesophageal reflux disease) Esophagitis presence: esophagitis presence not specified Qualified Code(s): K21.9 - Gastro-esophageal reflux disease without esophagitis (2) Dry eye syndrome Laterality: unspecified laterality Qualified Code(s): H04.129 - Dry eye syndrome of unspecified lacrimal gland
[2020-08-09] MEDS: SENNA 8.6 MG TAB PO SCH (20:27)
[2020-08-09] MEDS: MELATONIN 3 MG TAB PO SCH (22:17)
[2020-08-10] MEDS: RESTASIS - ORDER AWAITING ACTION SCH ×3 (00:32→16:03)
[2020-08-10 06:34] VITALS: TEMP 98.1
[2020-08-10] MEDS: ACETAMINOPHEN 500 MG TAB PO SCH ×2 (06:38→13:54)
[2020-08-10] MEDS: APIXABAN 2.5 MG TAB PO SCH (07:39)
[2020-08-10] MEDS: PANTOprazole 40 MG TAB PO SCH (07:39)
[2020-08-10] MEDS: FERROUS GLUCONATE 324 MG TAB PO SCH (07:40)
[2020-08-10] MEDS: SERTRALINE HCL 50 MG TABLET PO SCH (07:40)
[2020-08-10] MEDS: MULTIVITAMIN TAB PO SCH (07:40)
[2020-08-10] MEDS: carvediloL 6.25 MG TAB PO SCH (07:41)
[2020-08-10] MEDS: ASCORBIC ACID 500 MG TAB PO SCH (07:57)
[2020-08-10] MEDS: DOCUSATE SODIUM 100 MG CAP PO SCH ×2 (07:57→09:31)
--- NOTE | 2020-08-10 11:37 | Progress Notes ---
DATE: 08/10/2020 SUBJECTIVE: An 80-year-old white female now postop day 4 from a left femur IM nail removal and calcar replacement, total hip replacement. She is doing pretty well. Pain is controlled. She is getting around reasonably well with assistance. No chest pain or shortness of breath. Not feeling dizzy or lightheaded. OBJECTIVE: VITAL SIGNS: Temperature 36.7. Vital signs stable. GENERAL: Shows a pleasant elderly female. She was walking around her room with a walker and some assistance when I saw her this morning. EXTREMITIES: Examination of the left hip reveals the incision to be intact. There is some serous drainage on her dressing with a little bit of bloody drainage inferiorly. She can dorsiflex and plantarflex her foot appropriately. She is neurologically intact. ASSESSMENT: An 80-year-old white female now postop day 4 from a left femur hardware removal and calcar replacement, total hip replacement, doing pretty well. She is really wanting to go home and does not want to go to rehab or retirement facility. PLAN: 1. DVT prophylaxis including thigh-high TEDs, SCDs, and we are going to put her back on her Eliquis, but at a prophylactic dose. 2. PT/OT. Weight bear as tolerated. Left total hip protocol. 3. Pain control, doing okay with current pain regimen. 4. Disposition: We will see how she does in therapy. She is hoping to be discharged to home with home health. She does have a nephew who will stay with her manager [employer]. We will see how she does in therapy.
[2020-08-10 15:35] VITALS: BP 106/63; PULSE 81; O2SAT 96
--- NOTE | 2020-08-14 08:43 | Discharge Summary ---
Date of Service August 14, 2020 Admission HPI Per Admitting Provider Documented in the H & P Admission Exam (Per Admitting) Constitutional Documented in the H & P Discharge Data Consultations 08/06/20 19:02 Consult Internal Medicine Routine 08/07/20 08:00 Consult Case Management - Discharge Planning Routine Procedures Performed Operation Date: 08/04/20 10:10 <No data on this case meets the specified criteria> Operation Date: 08/06/20 14:35 Actual Procedures s Left Femur Hardware Removal, (Left) - Hang Valentin MD p Left Cemented Calcar Total Hip Replacement(Left) - Hang Valentin MD Hospital Course (1) Status post total hip replacement, left: This patient is a 80 year old female admitted on 08/06/20 and underwent hardware removal and left calcar replacement total hip arthroplasty. She tolerated the procedure well and there were no complications. She did receive 2 units of packed red blood cells intraoperatively. Transferred to the PACU post op, then telemetry, and later to the orthopedic floor for further care. She was given ancef for antibiotic prophylaxis. She was also given GLORY stockings, SCDs, and elilquis for DVT prophylaxis. Hemoglobin, hematocrit, and vital signs were monitored during her hospital stay and remained stable. She did have some orthostatic hypotension. Did not require any additional blood transfusions. There were no complications during her hospital stay. She was followed by the medicine service as well. By post op day #4 the patient was tolerating a regular diet, pain was reasonably controlled with oral pain medicine, and she was participating in physical therapy. On post op day #4 the patient was discharged home and set up with home health care. She was given printed discharge instructions including prescriptions tramadol for pain. Continue eliquis. Continue physical therapy, weight bearing as tolerated. hip precautions. Continue GLORY stockings. Follow up approximately 2 weeks post op or sooner if there are problems or concerns. Coding Level of Care Code None Diagnoses Status post total hip replacement, left Z96.642
== END 2020-08-10 17:30 | disposition home health service (06) ==
LOC: ASU 12:20 → 2E 12:20 → 3E 08-08 08:50
DX: I10 Essential (primary) hypertension; T85.698A Other mechanical complication of other specified internal prosthetic devices, implants and grafts, initial encounter; W19.XXXA Unspecified fall, initial encounter; D62 Acute posthemorrhagic anemia; H04.129 Dry eye syndrome of unspecified lacrimal gland; S72.143A Displaced intertrochanteric fracture of unspecified femur, initial encounter for closed fracture; K21.9 Gastro-esophageal reflux disease without esophagitis; Z86.73 Personal history of transient ischemic attack (TIA), and cerebral infarction without residual deficits

== ENCOUNTER 2023-07-05 05:13 | Observation (INO) ==
--- NOTE | 2023-06-22 16:24 | PAT Medication Instructions ---
Medication Instructions Date of Service June 22, 2023 Home Medications cyclosporine 0.05 % eye drops in a dropperette (Restasis) 1 drp OPB BID PRN NEEDED omeprazole 20 mg capsule,delayed release 20 mg PO QAM sertraline 25 mg tablet 75 mg PO QAM [id number]-[id number] 8 mg-folic 400 mcg-K 50 mcg-lutein 300 mcg tablet (Centrum Silver Women) 1 tab PO QAM apixaban 5 mg tablet (Eliquis) 5 mg PO BID carvedilol 25 mg tablet 25 mg PO BID lorazepam 0.5 mg tablet 0.5 mg PO BID PRN Anxiety tramadol 50 mg tablet 50 mg PO BID PRN Pain acetaminophen 325 mg tablet (Tylenol) 325 mg PO QID PRN Pain losartan 25 mg tablet 25 mg PO QAM ASK your prescriber and surgeon apixaban 5 mg tablet (Eliquis) 5 mg PO BID (in order to get spinal anesthesia- will need to hold Eliquis/apixaban at least 72 hours prior to surgery) DO NOT take the morning of surgery dutnlyjp-sybe-qsbs 8 mg-folic 400 mcg-K 50 mcg-lutein 300 mcg tablet (Centrum Silver Women) 1 tab PO QAM losartan 25 mg tablet 25 mg PO QAM Take morning of surgery With a small sip of water, OTHERWISE NOTHING TO EAT OR DRINK AFTER MIDNIGHT: cyclosporine 0.05 % eye drops in a dropperette (Restasis) 1 drp OPB BID PRN NEEDED (if needed) omeprazole 20 mg capsule,delayed release 20 mg PO QAM sertraline 25 mg tablet 75 mg PO QAM carvedilol 25 mg tablet 25 mg PO BID lorazepam 0.5 mg tablet 0.5 mg PO BID PRN Anxiety (if needed) tramadol 50 mg tablet 50 mg PO BID PRN Pain (if needed) acetaminophen 325 mg tablet (Tylenol) 325 mg PO QID PRN Pain (if needed) Take evening before surgery cyclosporine 0.05 % eye drops in a dropperette (Restasis) 1 drp OPB BID PRN NEEDED (if needed) carvedilol 25 mg tablet 25 mg PO BID lorazepam 0.5 mg tablet 0.5 mg PO BID PRN Anxiety (if needed) tramadol 50 mg tablet 50 mg PO BID PRN Pain (if needed) acetaminophen 325 mg tablet (Tylenol) 325 mg PO QID PRN Pain (if needed) Other Notes If you have any questions please call us at [phone] or [phone] or [phone] or [phone]
--- NOTE | 2023-06-23 08:52 | Anesthesiology Consultation ---
Date of Service June 23, 2023 Assessment & Plan (1) Encounter for pre-operative examination: - Case discussed in detail with Dr. Gavin who advised patient is acceptable to proceed from his standpoint without further evaluation or testing including echocardiogram from his standpoint. Justice, patient's caregiver made aware. She states they plan to monitor her BP at home and f/u with cardiology. - additional medications reported by patient: Imodium, orthopedic analgesic cream and pain relief supplement. Instructions were discussed and written on provided medication instructions as noted above. - Outpatient joint assessment: Patient is currently scheduled for inpatient pathway. If re-evaluated and patient/surgeon requests outpatient pathway, patient is not acceptable candidate for outpatient joint program from anesthesia standpoint pending surgeon's office assessment of pt motivation/support/com pletion of same day joint program preop requirements. - cardiology 02/02/23 [place]: "...Cardiovascular exam reveals a regular rhythm with distant heart sounds. No obvious murmurs...stable from cardiovascular standpoint. She demonstrates excellent control of her blood pressure at home. She is not able to exercise routinely due to limiting knee arthritis. She remains on chronic anticoagulation therapy for her lupus anticoagulant disorder..." - 45 minutes spent in total time with patient and caregiver. They both expressed satisfaction with today's visit and felt questions/concerns were adequately addressed. I provided my business card and encouraged they contact our office if any additional questions or concerns arise. Chart Review Chart Review: Acceptable Risk for Surgery and Patient seen in Pre Admission Testing Teaching & Discussion Pre-Anesthesia Teaching/Discussion Notes: Instructed NPO after midnight before surgery, except medications with 15 cc of water. Medication instructions provided according to the PAT guidelines. History Surgery Operation Date: 07/05/23 07:15 Proposed Procedures p Left Total Knee Arthroplasty - Hang Valentin MD Height/Weight Height: 5 ft 2 in Weight: 91.7 kg Allergies Allergy/AdvReac Type Severity Reaction Status Date / Time No Known Allergies Allergy Unknown Verified 06/19/23 09:14 Medications Home Medications Medication Instructions Recorded Confirmed Last Taken cyclosporine 0.05 % eye drops in a 1 drp OPB BID PRN NEEDED 06/25/20 06/22/23 08/05/20 22:00 dropperette (Restasis) omeprazole 20 mg capsule,delayed 20 mg PO QAM 06/25/20 06/22/23 08/06/20 07:00 release sertraline 25 mg tablet 75 mg PO QAM 06/25/20 06/22/23 08/06/20 07:00 ygxmautd-qnta-uygh 8 mg-folic 400 1 tab PO QAM 08/05/20 06/22/23 08/05/20 08:00 mcg-K 50 mcg-lutein 300 mcg tablet (Centrum Silver Women) apixaban 5 mg tablet (Eliquis) 5 mg PO BID 02/03/22 06/22/23 Unknown carvedilol 25 mg tablet 25 mg PO BID 02/03/22 06/22/23 Unknown lorazepam 0.5 mg tablet 0.5 mg PO BID PRN Anxiety 02/03/22 06/22/23 Unknown tramadol 50 mg tablet 50 mg PO BID PRN Pain 02/03/22 06/22/23 Unknown acetaminophen 325 mg tablet 325 mg PO QID PRN Pain 06/22/23 06/22/23 Unknown (Tylenol) losartan 25 mg tablet 25 mg PO QAM 06/22/23 06/22/23 Unknown glucosamine sulf dipot cap PO DAILY 06/23/23 Unknown chlr,msm,chond 550 mg-C 30 mg-ester 1 mg capsule (Glucosamine Chondroitin) loperamide 2 mg capsule 2 mg PO DAILY 06/23/23 06/23/23 Unknown trolamine salicylate 10 % topical 1 applic topical BID PRN Pain 06/23/23 06/23/23 Unknown cream (Analgesic Creme) Additional Notes: Pt states is also taking a pain relief supplement confirming it is not an NSAID, OTC analgesic cream, and Imodium. She was instructed to stop pain relief supplement at this time, do not take Imodium morning of surgery and to stop gels, lotions and creams 24 hours prior to surgery. Patient and great niece accompanying her today confirmed full understanding and agreement, denied questions, concerns or additional medications or supplements. Past Medical History Medical History (Updated 06/23/23 @ 14:34 by Juliana Willis PA-C) Anxiety and depression Chronic anticoagulation Dry eye syndrome Essential (primary) hypertension controlled, stable per pt Failed hardware Fecal incontinence GERD (gastroesophageal reflux disease) controlled, stable per pt Hearing loss hearing aids bilat History of blood transfusion with hip replacement 2019 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; 2007 History of stroke 2007 - residual numbness in right arm/right leg Lupus anticoagulant disorder LVH (left ventricular hypertrophy) Poor historian Patient denies h/o seizures, heart attack, heart failure, or DM. Exercise / Class Metabolic Activity III < 4 Walking/Shop/Light housework (denies chest discomfort or shortness of breath with usual activities) Past Family History Family History Mother , from complications of hip Fx Hip fracture Family history of diabetes mellitus Father COPD (chronic obstructive pulmonary disease) Past Surgical History Surgical History H/O hernia repair inguinal History of cataract surgery RT/LEFT History of colonoscopy History of hip surgery L HIP TROCH NAIL 06/26/20. History of hysterectomy History of left hip replacement History of tonsillectomy History of tooth extraction S/P IVC filter RT LEG Status post total knee replacement, right Past Anesthesia History No Family Hx of Anesthesia Complications and Other (great niece states patient woke from TKA without complication, stroke later occurred within initial 24 hour post-op interval) History of PONV No Hx of PONV and Hx of Motion Sickness Social History Smoking Status: Never smoker Do You Dip or Chew Tobacco: No Hx Alcohol Use: No Hx Substance Use: No substance use type: does not use Review of Systems Patient denies chest pain, shortness of breath, dyspnea on exertion, snoring, witnessed apneas, fever, chills, cough, wheezing, or palpitations. Physical Exam Vital Signs Vitals BP 177/104 automatic, 171/98 manual (expresses she is often anxious in clinical settings) P 63 TEMP 97.8 SP02 95% on RA RESP 18 Physical Patient resting comfortably in chair in NAD, alert and oriented, responding appropriately throughout visit Full cervical extension range of motion without pain TMD 3.5 finger breadths Mallampati Score 2 Dentition: several missing teeth, denies chipped or loose teeth, caps/crowns, implants or bridges Lungs: normal respiratory effort. Good air movement, clear throughout to auscultation, no adventitious breath sounds Cardiac: regular rate and rhythm, 2/6 systolic murmur noted Carotid arteries: negative bruit bilat Lab Results Anesthesia Preop Results Results Anesthesia Widget: WBC 8.38 K/ul (4.8-10.8) 06/23/23 Hgb 12.2 g/dl (12.0-16.0) 06/23/23 Hct 37.8 % (37.0-47.0) 06/23/23 Plt 251 K/uL (130-400) 06/23/23 Na 139 mmol/L (136-145) 06/23/23 K 4.2 mmol/L (3.5-5.1) 06/23/23 Cl 104 mmol/L (98-107) 06/23/23 CO2 29 mmol/L (21-32) 06/23/23 BUN 21 mg/dl (6-23) 06/23/23 Creat 0.58 mg/dl (0.6-1.2) L 06/23/23 Glucose Level 97 mg/dl (70-99(Fasting)) 06/23/23 PT 11.6 Seconds (9.0-12.0) 06/23/23 PTT 26.3 Seconds (21.0-31.0) 06/23/23 INR 1.1 (0.9-1.1) 06/23/23 Blood Type A Positive 06/23/23 Antibody Screen NEGATIVE 06/23/23 Testing Electrocardiogram Date: 06/23/23 Sinus bradycardia, rate 59 bpm Chest X-Ray Date: 06/23/23 No significant change compared to the prior study. No acute process. Echocardiogram Date: 06/26/20 EF 55-60% Mild cLVH No regional wall motion abnormalities Aortic valve sclerosis without stenosis Grade I diastolic dysfunction Small pericardial effusion
[2023-07-05] MEDS ORDERED: ceFAZolin 2000MG 2,000 MG/15 ML SYR IV SCH (06:00)
[2023-07-05] MEDS ORDERED: BUPIVACAINE LIPOSOME/PF 266 MG, BUPIVACAINE/EPINEPHRINE 50 ML, SODIUM CHLORIDE 0.9% PF ... INFIL SCH (06:00)
[2023-07-05] MEDS ORDERED: LR 60ML/HR IV SCH (06:00)
[2023-07-05] MEDS ORDERED: METOCLOPRAMIDE HCL 10 MG TABLET PO SCH (06:00)
[2023-07-05] MEDS ORDERED: dexAMETHasone**PF** 10 MG/ML VIAL IV SCH (06:00)
[2023-07-05] MEDS ORDERED: FAMOTIDINE 20 MG TAB PO SCH (06:00)
[2023-07-05] MEDS ORDERED: CeleBREX 200 MG CAP PO SCH (06:00)
[2023-07-05] MEDS ORDERED: LR 500ML BOLUS, THEN 15ML/HR IV SCH (06:00)
[2023-07-05] MEDS ORDERED: TRANEXAMIC ACID 1,000 MG **IV Intra-op IV SCH (06:00)
[2023-07-05] MEDS ORDERED: ACETAMINOPHEN 500 MG TAB PO SCH (06:00)
[2023-07-05] MEDS ORDERED: ROPIVACAINE 0.5% 5 MG/ML 30 ML VIAL ONE (06:27)
[2023-07-05] MEDS ORDERED: BUPIVACAINE/EPINEPHRINE 0.25% 1:200,000 30 ML VIAL ONE (06:39)
[2023-07-05] MEDS ORDERED: BUPIVACAINE LIPOSOME 1.3% 266 MG/20 ML VIAL ONE (06:40)
[2023-07-05] MEDS ORDERED: MIDAZOLAM HCL 1 MG/ML 2ML VIAL ONE (06:41)
[2023-07-05] MEDS ORDERED: fentaNYL citrate PF 100 MCG/2 ML VIAL ONE ×2 (06:41→07:49)
[2023-07-05] MEDS ORDERED: SODIUM CHLORIDE 0.9% PF 50 ML VIAL ONE (06:41)
[2023-07-05] MEDS ORDERED: PROPOFOL IV EMULSION 10 MG/ML 20 ML VIAL IV ONE ×2 (06:43→08:37)
--- NOTE | 2023-07-05 06:55 | History & Physical Bridge Note ---
Date of Service July 05, 2023 History & Physical Bridge Note I have examined the patient, reviewed the History & Physical and in the interval since the performance of the History & Physical I have noted the following changes of clinical significance: no changes noted
[2023-07-05] MEDS ORDERED: PHENYLEPHRINE HCL 10 MG/ML VIAL ONE (07:34)
[2023-07-05] MEDS ORDERED: HYDROmorphone INJ 1 MG/ML SYRINGE IV PRN (08:02)
[2023-07-05] MEDS ORDERED: ONDANSETRON INJ 2 MG/ML 2 ML VIAL IV PRN ×2 (08:02→10:28)
[2023-07-05] MEDS ORDERED: ePHEDrine sulfate 50 MG/ML AMP IV PRN (08:02)
[2023-07-05] MEDS ORDERED: ATROPINE SULFATE 0.1 MG/ML 10ML SYR IV PRN (08:02)
[2023-07-05] MEDS ORDERED: fentaNYL citrate PF 100 MCG/2 ML VIAL IV PRN (08:02)
--- NOTE | 2023-07-05 09:13 | Operative Report ---
PG Post Operative Report Pre & Post Diagnosis Operation Date: 07/05/23 07:00 Pre-Op Diagnosis: Left Knee Degenerative Joint Disease Post-Op Diagnosis: Left Knee Degenerative Joint Disease I identified the patient and participated in the time-out.: Yes Procedure Operation Date: 07/05/23 07:00 Actual Procedures p Left Total Knee Arthroplasty(Left) - Hang Valentin MD Surgeon Hang Valentin MD Clinical Assistant Watson Natarajan PA-C Estimated Blood Loss 50 Findings Consistent with Post-Op Diagnosis Operative findings were advanced extensive grade 4 pbhf-lp-wota disease in all 3 compartments. She had a very stiff knee with about 90 degrees of flexion. She osteophytes in all 3 compartments. Large knee joint effusion with fixed flexion contracture and varus deformity to her knee. Diffuse osteopenia. Specimens Left knee sent for pathology Drains None Anesthesia Type Spinal MAC Complications none Disposition Accompanied Patient To Recovery: No Indications Patient is an 83-year-old female with a long history of left knee pain discomfort describes gotten worse over time. She did sustain an intertrochanteric fracture of her left hip 3 years ago when she had severe arthritis then. That she failed fixation and had a calcar placed in total hip replacement. She is recovered from this. She continues to be bit debilitated by this knee pain discomfort stiffness. She has trouble walking any distance. She failed all conservative measures and elected proceed with total knee arthroplasty. Description of Procedure Operative implants consist of: 1 Biomet Vanguard size 65 left posterior stabilized femoral component. 2. Biomet size 71 tibial tray. 3. 12 mm pro stabilized polyethylene insert. 4. 31 x 8 all poly patella. The patient was taken the operating, identified, and placed on the operating table supine position architectures were properly padded. IV antibiotics tried by anesthesia team. A spinal anesthetic and adductor canal block had provided in the holding area. Gonzalez catheter was placed in sterile fashion to the left thigh tent was then placed in the left lower extremities and prepped draped in usual sterile fashion. The left leg was elevated and exsanguinated with use of an Esmarch and the tourniquet placed at 300 mmHg. An anterior posterior left knee was then performed to longitudinal incision centered over the patella. Sharp dissection scalp through subcutaneous tissue down the extensor mechanism. A medial prepped arthrotomy incision was made. Some subperiosteal dissection was carried out medially. We did a pretty extensive posterior medial dissection due to her fixed varus deformity and flexion contracture. The osteophytes taken off distal femur. The ACL was absent. The PCL was released and the tibia subluxated anteriorly. The external tibial alignment jig was then placed in the interface the tibia adjusted 14 mm medially. Proximal tibial cut was made fairly flush with the most deficient aspect of the medial tibial plateau. Some large osteophytes were taken off medially. The tibia sized to a size 71. I did drill some holes in the sclerotic proximal tibia. Attention drawn the femur. The distal femur over the sharp drop with intramedullary canal was suction. A right 5 degree valgus cutting guide was placed. The distal femoral cut was made to take an additional 3 mm bone off distal femur. The femur was then sized to a size 65. The AP cutting block was pinned parallel to the epicondylar axis which was 5 degrees of external rotation. Anterior cut, anterior chamfer, posterior cut, posterior chamfer cuts were made for the box cutting guide was placed in just slight lateral and the box cut was made. The knee was flexed. The remnant s of the medial lateral menisci were excised with the osteophytes taken off the posterior aspect the femur. A trial femoral component was placed. The tibial tray was pinned in maximum external rotation and the drill and stem punch were used to create defect in proximal tibia for the tibial tray. The knee was then trialed and the 12 mm insert fit most appropriately. Attention drawn the patella. The patella is cleaned of all soft tissue. Patella thickness measured 21 mm in thickness was cut down to 13. Sized to a size 31 patella. The lug holes were drilled for 31 patella. Lateral osteophytes removed. Patella button was placed. Knee was taken through range of motion patella tracked nicely with no thumbs test. Attention drawn to placing the permanent components. All trial components were removed. The wound was irrigated coconuts pulsatile lavage solution. Bone plug was placed in the distal femur limit blood loss. Double batch Palacos G cement was mixed. Biomet Vanguard size 65 left posterior stabilized femoral component, size 71 tibial tray, a 12 mm posterior stabilized polyethylene insert, and a 31 x 8 all Paller patella then cemented in place. The knee was brought out into full extension till cement hardened. Final cement check was then performed. The pericapsular tissues were injected with total 100 cc of combination of 20 cc of Exparel, 30 cc normal saline, 50 cc of quarter percent Marcaine with epinephrine. Patient did receive 1 g tranexamic acid. The tourniquet was then let down for final tourniquet time of 63 minutes. Hemostasis reduced electrocautery. Extensor mechanism then closed with combination #1 PDS suture #1 Vicryl suture in [id number] fashion. Extensor mechanism checked found to be intact and subcutaneous tissues then closed with 2 Dexon suture in a buried interrupted fashion skin was closed skin chhaya. Leg was then cleaned and dried and sterile dressed with Xeroform, 4 fours, sterile cast padding, ABD pad, sterile Lincoln bandage were applied. Patient then transferred to the recovery room in stable condition. Patient tolerated procedure well and there were no complications. Watson Natarajan, my physician food trades assistants, was present for the entire procedure. His assistance was essential and required for appropriate patient positioning, prepping and draping, surgical exposure, performing the technical details of the operation, placement the implants, closure of the wound, and placement of the sterile bandage. I attest to the content of the Intraoperative Record and any orders documented therein. Any exceptions are noted below.
--- NOTE | 2023-07-05 09:21 | XRay Report ---
XR knee LT 1 or 2V routine CLINICAL HISTORY: Surgical Post Op TECHNIQUE: 2 views of the left knee were obtained. Comparison: Comparison is made to left femur radiograph 06/26/2020 FINDINGS: Patient is status post total knee arthroplasty with expected postsurgical changes including soft tiss ue swelling and subcutaneous emphysema. No periarticular lucency or hardware fracture is seen. IMPRESSION: Expected postoperative appearance status post placement of total knee arthroplasty. ACT 112: Negative or not required by law. Electronically signed by: Luiz Puente M.D. 07/05/2023 9:19 AM
--- NOTE | 2023-07-05 09:56 | Anesthesiology Progress Note ---
Date of Service July 05, 2023 Anesthesia Post Procedure Vital Signs Vital Signs: Temp Pulse Pulse Resp BP BP Pulse Ox 07/05/23 09:45 36.5 C 72 15 117/78 97 07/05/23 09:35 65 16 127/62 100 07/05/23 09:25 65 16 124/65 100 07/05/23 09:15 67 17 121/64 100 07/05/23 09:05 36.1 C L 72 16 107/71 97 07/05/23 05:48 36.4 C L 75 20 166/80 H 95 O2 Del Method O2 Flow Rate 07/05/23 09:45 Room Air 07/05/23 09:35 Oxymask 4 07/05/23 09:25 Oxymask 4 07/05/23 09:15 Oxymask 6 07/05/23 09:05 Oxymask 6 07/05/23 05:48 Room Air Transfer of Care Handoff Completed per policy Notes Mental Status: alert / awake / arousable and participated in evaluation Patient Amnestic to Procedure: Yes Nausea / Vomiting: adequately controlled Pain: adequately controlled Airway Patency, RR, SpO2: stable & adequate BP & HR: stable & adequate Hydration State: stable & adequate Neuraxial Anesthesia: was administered and sensory block is resolving Anesthetic Complications: no major complications apparent and Pt Satisfied with anesthetic care
[2023-07-05] MEDS: SODIUM CHLORIDE 0.9% 1000ML 1,000 ML IV SCH ×2 (10:25→22:31)
[2023-07-05] MEDS ORDERED: MAGNESIUM HYDROXIDE SUSP 30 ML UDC PO PRN (10:28)
[2023-07-05] MEDS ORDERED: TROLAMINE SALICYLATE 10% CRM 255 APPLN/85 GM TUBE EXT PRN (10:28)
[2023-07-05] MEDS ORDERED: NALOXONE HCL 0.4 MG/1 ML VIAL/CARP IV PRN (10:28)
[2023-07-05] MEDS ORDERED: METOCLOPRAMIDE HCL INJ 5 MG/ML 2 ML VIAL IV PRN (10:28)
[2023-07-05] MEDS ORDERED: ALUMINUM/MAGNESIUM SUSP 30 ML UDC PO PRN (10:28)
[2023-07-05] MEDS ORDERED: bisacodyL 10 MG SUPP PR PRN (10:28)
[2023-07-05] MEDS ORDERED: ONDANSETRON 4 MG OD TAB PO PRN (10:28)
[2023-07-05] MEDS ORDERED: CEROVITE ADV FORMULA TAB PO SCH (10:45)
[2023-07-05] MEDS: HYDROmorphone INJ 0.5 MG/0.5 ML SYR IV PRN ×2 (11:57→18:43)
[2023-07-05] MEDS: LOSARTAN POTASSIUM 25 MG TAB PO SCH (13:03)
[2023-07-05] MEDS: ACETAMINOPHEN 500 MG TAB PO SCH ×3 (13:03→22:15)
[2023-07-05] MEDS: KETOROLAC TROMETHAMINE 15 MG/ML VIAL IV SCH ×3 (13:03→22:16)
[2023-07-05] MEDS: carvediloL 25 MG TAB PO SCH ×2 (13:03→16:53)
[2023-07-05] MEDS: SERTRALINE HCL 50 MG TABLET PO SCH (13:04)
[2023-07-05] MEDS: PANTOprazole 40 MG TAB PO SCH (13:04)
[2023-07-05] MEDS: ceFAZolin 2000MG 2,000 MG/15 ML SYR IV SCH ×2 (15:14→22:31)
[2023-07-05] MEDS ORDERED: TRANEXAMIC ACID / 0.7% NACL 1,000 MG/100 ML BAG IV SCH (15:15)
[2023-07-05] MEDS: oxyCODONE HCL IR 5 MG TAB (IMMEDIATE RELEASE) PO PRN (15:26)
[2023-07-05] MEDS: DOCUSATE SODIUM 100 MG CAP PO SCH (19:24)
[2023-07-05] MEDS: SENNA 8.6 MG TAB PO SCH (19:24)
[2023-07-06] MEDS: KETOROLAC TROMETHAMINE 15 MG/ML VIAL IV SCH (04:21)
[2023-07-06] MEDS: oxyCODONE HCL IR 5 MG TAB (IMMEDIATE RELEASE) PO PRN (05:54)
--- NOTE | 2023-07-06 07:08 | Orthopedic Progress Note ---
Date of Service July 06, 2023 Assessment & Plan (1) Status post total left knee replacement: 83-year-old female with multiple medical comorbidities now postop day 1 from left knee replacement. She is doing well. Pain is controlled. She is neurologically intact. Plan: 1. DVT prophylaxis including thigh-high teds SCDs we will start her on prophylactic Eliquis today. 2. PT OT. Weight-bear as tolerated left total knee protocol. 3. Pain control doing well with current pain regimen. 4. Disposition she is hoping to go to [facility]. We will look into that today. She appears medically stable and acceptable anytime accepted. Subjective . 83-year-old female postop day 1 from left total knee replacement. She is doing well. Had a good night. Pain is controlled. Denies any chest pain shortness of breath. Not feeling dizzy or lightheaded. Review of Systems All systems reviewed & are unremarkable except as noted in HPI & below. Physical Exam . Physical examination was a pleasant elderly female. Awake at this morning. Examination left leg reveals the dressing clean dry and intact. Leg is well aligned. Calf is soft and supple. She can dorsiflex and plantarflex her foot appropriately. Respiratory normal respiratory effort, lungs clear to auscultation Cardiovascular RRR, no murmur, no edema Gastrointestinal (Abdomen) normal bowel sounds, soft, nontender, no hepatosplenomegaly Results & Data Results & Data Laboratory Results . Lab results are pending. Diagnostic Findings . PG Care Time/CCT Total # of Minutes Spent Total Time Spent with Patient: Total time spent is greater than 50% in coordination of care (as documented) at patient's floor/unit and/or counseling patient: Coding Level of Care Code 08522 Post Operative Follow-Up Diagnoses Status post total left knee replacement Z96.652
[2023-07-06 07:46] LABS: Hematocrit (blood only) 30.8 % (37.0-47.0); Hemoglobin 10.3 g/dl (12.0-16.0); Mean Corpuscular Hemoglobin 33.4 pg (25.0-34.0); Mean Corpuscular Hgb Conc 33.4 g/dL (32.0-36.0); Mean Platelet Volume 10.5 fL (9.4-12.4); Platelet Count 174 K/uL (130-400); RDW Coefficient of Variation 12.5 % (11.5-14.5); RDW Standard Deviation 45.3 fL (36.4-46.3); Red Blood Count 3.08 M/uL (4.20-5.40); White Blood Count 12.91 K/ul (4.8-10.8)
[2023-07-06] MEDS ORDERED: dexAMETHasone 10 MG in SYRINGE 0 ML IV SCH (08:00)
[2023-07-06 08:12] LABS: BUN Creatinine Ratio 42.4 (10-20); Calcium 8.1 mg/dl (8.6-10.3); Creatinine Clr Calc Pharmacy 66.7 ml/min; Est GFR (Non-African American) 81.1 ml/min; Potassium 4.2 mmol/L (3.5-5.1)
[2023-07-06] MEDS: MULTIVITAMIN TAB PO SCH (09:16)
[2023-07-06] MEDS: APIXABAN 2.5 MG TAB PO SCH ×2 (09:17→20:21)
[2023-07-06] MEDS: carvediloL 25 MG TAB PO SCH ×2 (09:17→16:25)
[2023-07-06] MEDS: LOSARTAN POTASSIUM 25 MG TAB PO SCH (09:17)
[2023-07-06] MEDS: DOCUSATE SODIUM 100 MG CAP PO SCH ×2 (09:17→20:21)
[2023-07-06] MEDS: PANTOprazole 40 MG TAB PO SCH (09:17)
[2023-07-06] MEDS: SERTRALINE HCL 50 MG TABLET PO SCH (09:25)
[2023-07-06] MEDS: ACETAMINOPHEN 500 MG TAB PO SCH ×3 (09:30→20:21)
[2023-07-06] MEDS: SENNA 8.6 MG TAB PO SCH (20:21)
[2023-07-06] MEDS: LORazepam 0.5 MG TAB PO PRN (22:05)
--- NOTE | 2023-07-07 07:09 | Orthopedic Progress Note ---
Date of Service July 07, 2023 Assessment & Plan (1) Status post total left knee replacement: 83-year-old female postop day 2 from left knee replacement doing pretty well. Pain controlled. She is neurologically intact. Just wait for placement. She lives by herself and will need some assistance for the next 5 to 7 days. Plan: 1. DVT prophylaxis including thigh-high teds SCDs and Xarelto. 2. PT OT. Weight-bear as tolerated left total knee protocol. 3. Pain control doing well with current pain regimen. 4. Disposition plan to discharge to a rehab or [facility] facility when available and approved. Subjective . 83-year-old female postop day 2 from a left knee replacement. She is doing well this morning. Had a little bit of anxiety yesterday afternoon but cannot calm down. The pain is controlled. Therapy is going pretty well. Just really waiting for placement. No chest pain or shortness of breath Review of Systems All systems reviewed & are unremarkable except as noted in HPI & below. Physical Exam . Physical examination was a pleasant elderly female. Lying bed looks comfortable. Examination left leg reveals the leg to be well aligned. A little bit of bloody drainage on the dressing. She can dorsiflex and plantarflex her foot appropriately. She is neurologically intact. Results & Data Results & Data Laboratory Results . No new labs Diagnostic Findings . PG Care Time/CCT Total # of Minutes Spent Total Time Spent with Patient: Total time spent is greater than 50% in coordination of care (as documented) at patient's floor/unit and/or counseling patient: Coding Level of Care Code 64186 Post Operative Follow-Up Diagnoses Status post total left knee replacement Z96.652
[2023-07-07] MEDS: LOSARTAN POTASSIUM 25 MG TAB PO SCH (08:11)
[2023-07-07] MEDS: APIXABAN 2.5 MG TAB PO SCH ×2 (08:11→20:31)
[2023-07-07] MEDS: carvediloL 25 MG TAB PO SCH ×2 (08:11→16:28)
[2023-07-07] MEDS: MULTIVITAMIN TAB PO SCH (08:12)
[2023-07-07] MEDS: DOCUSATE SODIUM 100 MG CAP PO SCH ×2 (08:12→20:31)
[2023-07-07] MEDS: SERTRALINE HCL 50 MG TABLET PO SCH (08:12)
[2023-07-07] MEDS: PANTOprazole 40 MG TAB PO SCH (08:12)
[2023-07-07] MEDS: ACETAMINOPHEN 500 MG TAB PO SCH ×3 (08:14→20:31)
[2023-07-07] MEDS ORDERED: ARTIFICIAL TEARS OP PRN (12:10)
[2023-07-07] MEDS: oxyCODONE HCL IR 5 MG TAB (IMMEDIATE RELEASE) PO PRN (13:33)
[2023-07-07] MEDS: LORazepam 0.5 MG TAB PO PRN (20:31)
[2023-07-07] MEDS: SENNA 8.6 MG TAB PO SCH (20:31)
[2023-07-08] MEDS: SERTRALINE HCL 50 MG TABLET PO SCH (07:20)
[2023-07-08] MEDS: APIXABAN 2.5 MG TAB PO SCH (07:20)
[2023-07-08] MEDS: carvediloL 25 MG TAB PO SCH (07:20)
[2023-07-08] MEDS: ACETAMINOPHEN 500 MG TAB PO SCH (07:20)
[2023-07-08] MEDS: DOCUSATE SODIUM 100 MG CAP PO SCH (07:21)
[2023-07-08] MEDS: LOSARTAN POTASSIUM 25 MG TAB PO SCH (07:21)
[2023-07-08] MEDS: PANTOprazole 40 MG TAB PO SCH (07:21)
[2023-07-08] MEDS: MULTIVITAMIN TAB PO SCH (07:21)
--- NOTE | 2023-07-08 08:28 | Orthopedic Progress Note ---
Date of Service July 08, 2023 Assessment & Plan (1) Status post total left knee replacement: 83-year-old female postop day 3 from left knee replacement doing pretty well. Just wait for placement. Pain is controlled. She is neurologically intact. Plan: 1. DVT prophylaxis including thigh-high teds SCDs and back on Eliquis. 2. PT OT. Weight-bear as tolerated. Left total knee protocol. 3. Pain control doing well with current pain regimen. 4. Disposition just waiting for placement. Medically stable for discharge anytime. Subjective . 83-year-old female postop day 3 from a left total knee replacement. She is doing well. Really just waiting for placement. The pains been well controlled. No chest pain or shortness of breath. Feels like she is getting better daily. Review of Systems All systems reviewed & are unremarkable except as noted in HPI & below. Physical Exam . Physical examination was a pleasant awake alert and elderly female. Sitting up in bedside chair looks completely comfortable. Examination of leg reveals the dressing clean dry and intact. Leg is well aligned. She is neurologically intact. Results & Data Results & Data Laboratory Results . Diagnostic Findings . PG Care Time/CCT Total # of Minutes Spent Total Time Spent with Patient: Total time spent is greater than 50% in coordination of care (as documented) at patient's floor/unit and/or counseling patient: Coding Level of Care Code 51883 Post Operative Follow-Up Diagnoses Status post total left knee replacement Z96.652
--- NOTE | 2023-07-11 06:37 | Discharge Summary ---
Date of Service July 11, 2023 Discharge Data Procedures Performed Operation Date: 07/05/23 07:00 Actual Procedures p Left Total Knee Arthroplasty(Left) - Hang Valentin MD Hospital Course (1) Status post total left knee replacement: This is a 83 year old patient admitted on 07/05/23 and underwent total knee arthroplasty. She tolerated the procedure well and there were no complications. Transferred to the PACU post op and later to the orthopedic floor for further care. She was given ancef for antibiotic prophylaxis. She was also given GLORY stockings, SCDs, and eliquis for DVT prophylaxis. Hemoglobin, hematocrit, and vital signs were monitored during her hospital stay and remained stable. Did not require any blood transfusions. There were no complications during her hospital stay. By post op day #3 the patient was tolerating a regular diet, pain was reasonably controlled with oral pain medicine, and she was participating in physical therapy. On post op day #3 the patient was discharged home and set up with home health care. She was given printed discharge instructions including prescriptions for extra strength tylenol, cefadroxil, zofran, oxycodone, and senokot. Continue physical therapy, weight bearing as tolerated. Continue GLORY stockings. Follow up approximately 2 weeks post op or sooner if there are problems or concerns. Coding Level of Care Code None Diagnoses Status post total left knee replacement Z96.652
== END 2023-07-08 14:45 | disposition home health service (06) | DRG 470 ==
LOC: ASU 05:13 → INTOOBSV 09:05 → 3E 09:05